=== PATIENT | male | born 1950 | race Two or more races ===

== ENCOUNTER 2016-11-24 11:08 | Inpatient (IN) | payer OTHER, MEDICARE ==
[~2016-11-24] VITALS: Ht 165.1 cm; Wt 99.3 kg
[2016-11-24] VITALS (19 sets, daily range): BP systolic 102–154; BP diastolic 55–93
--- NOTE | 2016-11-24 11:08 | NUR ---
PIDI842 FROM HOME: ALOC, NOT RESPONSIVE TO PAINFUL STIMULI. LAST KNOWB WELL 11/23/16 @ 2200, PER BROTHER. PATIENT CAME IN WITH NR UNRESPONSIVE. SKIN IS WARM AND DRY. IVHL R AND L HAND 18G NOTED LIFE GUARD. DR SORENSEN AT FOR EVAL.
[2016-11-24] MEDS ORDERED: IV NS 0.9% 1,000 ML ONE ×2 (11:15→12:44)
[2016-11-24] MEDS ORDERED: IV SET PRIMARY 1 EA INFUS.SET MC ONE ×2 (11:15→12:44)
--- NOTE | 2016-11-24 11:18 | NUR ---
CALLED CODE STROKE
--- NOTE | 2016-11-24 11:20 | NUR ---
PT TO CT
--- NOTE | 2016-11-24 11:22 | NUR ---
CALLED [facility]'S TELESTROKE HOTLINE, SPOKE WITH DIOMEDES, PRESENTED PT, AWAITING CALL BACK FROM (NEUROLOGIST).
[2016-11-24 11:26] LABS: BASOPHILS % (AUTO) 0.5 % (0.0-2.0); EOSINOPHILS % (AUTO) 0.1 % (0.0-6.0); HEMATOCRIT 44 % (39-51); HEMOGLOBIN 13.5 g/dL (13.5-17.5); LYMPHOCYTES # (AUTO) 1.4 /CMM (0.8-4.8); LYMPHOCYTES % (AUTO) 14.6 % (20.0-44.0); MEAN CORPUSCULAR HEMOGLOBIN 27 PG (26.0-33.0); MEAN CORPUSCULAR HGB CONC 31 g/dl (31.0-36.0); MEAN CORPUSCULAR VOLUME 86 fL (80-96); MONOCYTES # (AUTO) 0.7 /CMM (0.1-1.30); MONOCYTES % (AUTO) 7.7 % (2.0-12.0); NEUTROPHILS # (AUTO) 7.6 /CMM (1.8-8.9); NEUTROPHILS % (AUTO) 77.1 % (43.0-81.0); PLATELET COUNT (AUTO) 160 /CMM (150-450); RDW COEFFICIENT OF VARIATION 14.4 (11.5-15.0); RED BLOOD CELL COUNT(AUTO) 5.05 MIL/uL (4.5-6.0); WHITE BLOOD COUNT (AUTO) 9.7 K/uL (4.3-11.0)
--- NOTE | 2016-11-24 11:26 | NUR ---
PT BACK FROM CT
[2016-11-24] MEDS ORDERED: IV NS 0.9% 1,000 ML BAG IV ONE (11:30)
[2016-11-24] MEDS ORDERED: NALOXONE PREFILLED SYRINGE 2 MG/2 ML SYRINGE ONE (11:32)
--- NOTE | 2016-11-24 11:33 | NUR ---
XRAY AT BS
[2016-11-24 11:36] LABS: CALCIUM, SERUM 8.2 mg/dL (8.5-10.1); CREATININE 2.7 mg/dL (0.6-1.3); POTASSIUM 5.3 mmol/L (3.5-5.1)
[2016-11-24 11:40] LABS: INR 1.01 (0.87-1.13); PROTHROMBIN TIME 10.5 SECS (9.5-12.7)
[2016-11-24 11:47] LABS: TROPONIN I 6.3 ng/mL (0.00-0.056)
[2016-11-24] MEDS ORDERED: HYDR12.55 PO (11:52)
[2016-11-24] MEDS ORDERED: TRAZ-144 PO (11:52)
[2016-11-24] MEDS ORDERED: GABA800T2 PO (11:52)
[2016-11-24] MEDS ORDERED: FLUT16SP16 NS (11:52)
[2016-11-24] MEDS ORDERED: FINA5TAB11 PO (11:52)
[2016-11-24] MEDS ORDERED: LISI-603 PO (11:52)
[2016-11-24] MEDS ORDERED: AMIT25TA9 PO (11:52)
[2016-11-24] MEDS ORDERED: CETI-232 PO (11:52)
[2016-11-24] MEDS ORDERED: ACET-2605 PO (11:52)
[2016-11-24] MEDS ORDERED: METO25TA20 PO (11:52)
[2016-11-24] MEDS ORDERED: TAMS-12 PO (11:52)
[2016-11-24] MEDS ORDERED: OMEP20CA10 PO (11:52)
[2016-11-24] MEDS ORDERED: OMEG1CAP40 PO (11:52)
--- NOTE | 2016-11-24 11:52 | NUR ---
PAGED ROAD INSPECTOR HOME OFFICE CLAIMS EXAMINER, ROAD INSPECTOR
[2016-11-24] MEDS ORDERED: NALOXONE HCL 0.4 MG/ML AMPUL IV ONE (12:00)
[2016-11-24] MEDS ORDERED: ASPIRIN 300 MG/SUPP.RECT RC ONE ×2 (12:25→12:30)
--- NOTE | 2016-11-24 12:40 | NUR ---
REPORT GIVEN TO FRANSISCO ARANGO FOR [facility] ICU 259
[2016-11-24] MEDS ORDERED: IV NS 0.9% 1,000 ML IV ONE (13:00)
--- NOTE | 2016-11-24 13:00 | NUR ---
ICU/RN PT TRANSFER FROM ER.PT IS ALOC,NOT RESPONSIVE ON ANY STIMULATION .ON NON-REBREATHER MASK AT 15L.IV-HL.F/C DRAINING WITH YELLOW URINE.SKIN INTACT.V/S STABLE,AFEBRILE.PUPILS ARE FIXED .,NO REACTION.LABS REVIEW.K-5.3. NOTIFIED.
[2016-11-24 13:26] LABS: BILIRUBIN,DIRECT 0.1 mg/dL (0.0-0.2); BILIRUBIN,TOTAL 0.4 mg/dL (0.2-1.0); TOTAL PROTEIN, SERUM 7.7 g/dL (6.4-8.2)
[2016-11-24 13:36] LABS: ABG BASE EXCESS 1.2 mmol/L; ABG OXYGEN SATURATION 97.2 % (92.0-98.5); ABG PCO2 50.5 mmHg (35.0-45.0); ABG PH 7.354 (7.350-7.450); ABG PO2 103.9 mmHg (75.0-100.0); AaDO2 36.2 mmHg; COHb 1.7 % (0.5-1.5); MetHb 0.5 % (0.0-1.5); O2Hb 95.1 % (94.0-97.0); SITE, ABG Right Radial
[2016-11-24] MEDS: FLUMAZENIL 0.5 MG VIAL IV PRN ×2 (14:08→14:40)
--- NOTE | 2016-11-24 15:00 | NUR ---
ICU/RN ABG DONE ORDERED.DR LOVELACE SEEN THE PT .PT IS INTUBATED FOR AIRWAY PROTECTION.NO SEDATION NEEDED. PT HAS NO GAG AND NO COUGH REFLEX.OG TUBE INSERTED.FAMILY NOTIFIED.CONTINUE MONITORING.
--- NOTE | 2016-11-24 15:01 | NUR ---
PT NOT INTUBATED YET, RN WILL CALL WHEN READY FOR CXR.
[2016-11-24] MEDS: BLOOD SUGAR DIAGNOSTIC 1 EACH STRIP IN SCH ×3 (15:03→22:18)
--- NOTE | 2016-11-24 15:15 | NUR ---
pt intubated by er with 7.5 et-tube secured at 22cm. zero distress noted. b/s equal. positive c02 exchange. pt placed on mech. vent settings as ordered. alarms set and audible ambu-bag at hed of bed.
--- NOTE | 2016-11-24 15:17 | NUR ---
TEXTED FOR MRI APPROVAL.
--- NOTE | 2016-11-24 15:29 | NUR ---
Social service consult received at 2:29PM per Dr Perez for stroke. Per H&P report by Dr. Perez pt. is unable to give history, as per son he has a history of colon carcinoma, BPH, apparently over the last several days has had multiple falls for which he has seen his primary care physician. As of yesterday evening before pt. went to sleep he was awake interactive and appropriate. This morning his sons were not able to wake him up, he was brought to the emergency room where he was found to be obtunded with toxicology screen being positive for benzodiazepines, metabolic workup showing evidence for acute renal failure and elevated troponin with ABG showing compensated hypercarbia. Pt. received a dose of Narcan in the emergency room without improvement, his head CT scan did not show any evidence for an acute event and he was transferred up to the ICU. SW contacted ICU x [phone] to inquire if pt. is A& O and if family members are available. According to HOLLY Alex, pt. is intubated, however family members might be in the waiting room. SW met with pt's son Alec Perez. According to pt's son Alec, pt. has had no prior history of stroke. Pt. has had history of Colon CA 5 years ago and is in remission. Pt. resides with his sons and . Pt. has no DPOA or advance Health care directive at this time. According to pt's son, pt. was ambulatory and independent with his ADL's. According to pt's son, in case of an emergency and a decision would have to be made, pt's would be the decision maker. Pt. receives approximately $650 in social security benefits. No social service needs are required at this time and SW to re-assess if necessary.
[2016-11-24 16:25] LABS: ABG BASE EXCESS 4.6 mmol/L; ABG OXYGEN SATURATION 98.6 % (92.0-98.5); ABG PCO2 53.4 mmHg (35.0-45.0); ABG PH 7.381 (7.350-7.450); ABG PO2 175.9 mmHg (75.0-100.0); AaDO2 120.5 mmHg; COHb 1.3 % (0.5-1.5); MetHb 0.7 % (0.0-1.5); O2Hb 96.6 % (94.0-97.0); PEEP,BG 5 cm H2O; SITE, ABG Right Radial; VT, ABG 550 mL
[2016-11-24] MEDS: IV NS 0.9% 1,000 ML IV PRN ×2 (16:26→17:11)
[2016-11-24] MEDS ORDERED: ETOMIDATE 2 MG/ML VIAL IV ONE (17:00)
[2016-11-24] MEDS ORDERED: ROCURONIUM BROMIDE 50 MG/5 ML IV ONE (17:00)
[2016-11-24] MEDS ORDERED: IV SET PRIMARY PUMP SET 1 EA INFUS.SET MC ONE (17:05)
[2016-11-24] MEDS ORDERED: BLOOD SUGAR DIAGNOSTIC 1 EACH STRIP IN SCH (18:00)
[2016-11-24 18:48] LABS: APPEARANCE,URINE SL CLOUDY (CLEAR); BILIRUBIN,URINE NEGATIVE (NEGATIVE); BLOOD, URINE NEGATIVE Ery/uL (NEGATIVE); COLOR,URINE YELLOW (YELLOW); KETONES,URINE NEGATIVE (NEGATIVE); LEUKOCYTE ESTERASE ,URINE NEGATIVE (NEGATIVE); NITRITE, URINE NEGATIVE (NEGATIVE); PH,URINE 5.5 (5.0-8.0); PROTEIN,URINE NEGATIVE (NEGATIVE); UGLUCOSE NEGATIVE (NEGATIVE); UROBILINOGEN,URINE 0.2 EU/dL (0.2)
[2016-11-24 20:16] LABS: CREATININE 2.2 mg/dL (0.6-1.3); POTASSIUM 4.1 mmol/L (3.5-5.1)
[2016-11-24 20:29] LABS: ALBUMIN 2.4 g/dL (3.4-5.0); BILIRUBIN,TOTAL 0.5 mg/dL (0.2-1.0); TOTAL PROTEIN, SERUM 6.3 g/dL (6.4-8.2)
--- NOTE | 2016-11-24 20:30 | NUR ---
CREDENTIALING SPECIALIST NOTES RECEIVED PT IN BED, MOVES TOES AND HANDS SPONTANEOUSLY. DOES NOT OPEN EYES. WITHDRAWS TO PAIN STIMULI. TELE READS SR IN 70s. ON VENT VIA ETT 7.5 AND 22CM AT LIP, AC 12 TV 550 FIO2 40% PEEP 5, JENNIFER WELL. PARRA CATH IN PLACE WITH YELLOW URINE. MARIANNE MIDLINE 18G AND LEFT HAND 18G, BOTH SALINE LOCKED. OGT IN PLACE AND CLAMPED. TURNED AND REPOSITIONED. NO SIGNS OF PAIN. HOB ELEVATED, SIDE RAILS X3. BILATERAL SOFT WRIST RESTRAINTS IN PLACE FOR PT SAFETY AGAINST EXTUBATION.
[2016-11-24 20:57] LABS: THYROID STIMULATING HORMONE 0.936 uIU/mL (0.358-3.74)
[2016-11-24 20:58] LABS: C-REACTIVE PROTEIN 4.7 mg/dL (0.0-0.9)
[2016-11-24 21:24] LABS: CREATINE KINASE MB 41.1 ng/mL (0-3.6)
[2016-11-25] VITALS (46 sets, daily range): BP systolic 80–167; BP diastolic 28–104
[2016-11-25 05:04] LABS: EOSINOPHILS # (AUTO) 0.1 /CMM (0.0-0.7); EOSINOPHILS % (AUTO) 0.7 % (0.0-6.0); HEMATOCRIT 34 % (39-51); HEMOGLOBIN 11.3 g/dL (13.5-17.5); LYMPHOCYTES % (AUTO) 9.6 % (20.0-44.0); MEAN CORPUSCULAR HEMOGLOBIN 28 PG (26.0-33.0); MEAN CORPUSCULAR HGB CONC 33 g/dl (31.0-36.0); MEAN CORPUSCULAR VOLUME 85 fL (80-96); MONOCYTES # (AUTO) 0.7 /CMM (0.1-1.30); MONOCYTES % (AUTO) 6.4 % (2.0-12.0); NEUTROPHILS # (AUTO) 8.7 /CMM (1.8-8.9); NEUTROPHILS % (AUTO) 83.3 % (43.0-81.0); PLATELET COUNT (AUTO) 117 /CMM (150-450); RDW COEFFICIENT OF VARIATION 15.2 (11.5-15.0); RED BLOOD CELL COUNT(AUTO) 4.04 MIL/uL (4.5-6.0); WHITE BLOOD COUNT (AUTO) 10.5 K/uL (4.3-11.0)
[2016-11-25 05:06] LABS: CALCIUM, SERUM 7.4 mg/dL (8.5-10.1); CREATININE 1.7 mg/dL (0.6-1.3); POTASSIUM 4.1 mmol/L (3.5-5.1)
--- NOTE | 2016-11-25 05:10 | NUR ---
BODY TEAM MEMBER NOTES PATIENT HAD AN EPISODE SINUS PAUSE FOR APPROX 3 SECONDS. PT ASSESSED, NO S/S OF ACUTE DISTRESS. RHYTHM REVERTED BACK TO NORMAL SINUS AT 84 BPM. VSS. EKG PRINTED AND PLACED IN CHART.
[2016-11-25 05:14] LABS: INR 1.04 (0.87-1.13); PROTHROMBIN TIME 11.1 SECS (9.5-12.7)
[2016-11-25] MEDS: BLOOD SUGAR DIAGNOSTIC 1 EACH STRIP IN SCH ×4 (07:14→21:28)
--- NOTE | 2016-11-25 07:56 | NUR ---
MRI APPROVED BY DR. MI. ONLY TO BE DONE WHEN PATIENT IS STABLE.
[2016-11-25] MEDS ORDERED: ATROPINE SULFATE 1 MG/10 ML DISP.SYRIN IV PRN (08:00)
[2016-11-25] MEDS ORDERED: METOPROLOL SUCCINATE 50 MG TAB.SR.24H PO SCH (08:00)
--- NOTE | 2016-11-25 08:03 | NUR ---
CHECKED AM AND SPOKE TO THE NURSE PATIENT IS INTUBATED.
[2016-11-25] MEDS: PANTOPRAZOLE 40 MG TABLET.DR PO SCH (08:28)
[2016-11-25] MEDS: IV NS 0.9% 1,000 ML IV PRN ×3 (08:28→21:28)
[2016-11-25] MEDS: ASPIRIN EC 325 MG TABLET.DR PO SCH (08:28)
[2016-11-25] MEDS: DOCUSATE SODIUM 100 MG CAPSULE PO SCH (08:29)
[2016-11-25] MEDS: ACETAMINOPHEN 650 MG/20.3 ML UDC NG PRN (08:35)
[2016-11-25] MEDS: hydrALAZINE HCL IV 20 MG VIAL IV PRN (08:37)
[2016-11-25] MEDS ORDERED: FEE PK DOSING 1 MIN EA MC ONE (08:55)
[2016-11-25] MEDS ORDERED: METOPROLOL TARTRATE 50 MG TABLET PO SCH (09:00)
[2016-11-25] MEDS: PIPERACILLIN /TAZOBACTAM 2.25 G in IV D5W 50 ML IV SCH ×3 (09:05→17:57)
[2016-11-25] MEDS ORDERED: SECONDARY IV SET 1 EA INFUS.SET MC ONE (09:36)
[2016-11-25] MEDS: VANCOMYCIN 1 GM in IV D5W 250 ML IV SCH (09:52)
[2016-11-25] MEDS ORDERED: IV NS 0.9% 1,000 ML BAG IV ONE (12:30)
[2016-11-25 13:02] LABS: ABG BASE EXCESS 4.7 mmol/L; ABG OXYGEN SATURATION 97.1 % (92.0-98.5); ABG PCO2 46.6 mmHg (35.0-45.0); ABG PH 7.423 (7.350-7.450); ABG PO2 104.1 mmHg (75.0-100.0); AaDO2 127.5 mmHg; COHb 0.7 % (0.5-1.5); MetHb 0.7 % (0.0-1.5); O2Hb 95.7 % (94.0-97.0); PEEP,BG 5 cm H2O; SITE, ABG Right Radial; VT, ABG 550 mL
[2016-11-25] MEDS ORDERED: IV SET PRIMARY PUMP SET 1 EA INFUS.SET MC ONE (13:14)
--- NOTE | 2016-11-25 14:14 | NUR ---
MRI STUDY OF HEAD IS ORDERED BUT UNABLE TO BE DONE AT [facility] PT IS ON VENT. I SPOKE TO ASSOCIATE PRINCIPAL ANASTASIIA, NURSING PUBLIC ADDRESS SYSTEM MECHANIC CHICO AND NILSA THE RADIOLOGY LIAISON FOR MRI'S REGARDING THE NEED FOR IMMEDIATE MRI. THE CNO EMEKA WAS NOTIFIED BY ASSOCIATE PRINCIPAL AND NURSING PUBLIC ADDRESS SYSTEM MECHANIC . I D/W MALLORY VIRGEN, GET AND IDALIA ALL ABOVE. AT THIS TIME THERE IS NO MECHANISM, PROCESS OR SYSTEM IN PLACE TO DO THE MRI
[2016-11-25] MEDS: PROPOFOL 100 ML IV PRN (16:00)
--- NOTE | 2016-11-25 16:00 | NUR ---
ICU/RN PT IS AWAKE FOLLOWS COMMAND ,EYES OPEN ,MOVING UPPER AND LOWER EXTREMITIES.BILATERAL WRIST RESTRAINS ON.HR SWITCH FROM SR TO A-FIB.HR-100-160 BPM.MD NOTIFIED.PROPOFOL STARTED ORDERED.
--- NOTE | 2016-11-25 18:00 | NUR ---
ICU/RN PM CARE PROVIDED.DUE MEDS ARE GIVEN ORDERED.PT IS SEDATED ON PROPOFOL.HR-A-FIB 120-140 BPM.BP STABLE.CONTINUE MONITORING.FAMILY AT BEDSIDE.
--- NOTE | 2016-11-25 20:00 | NUR ---
EX CHEF NOTES RECEIVED PT IN BED, SEDATED ON DIPRIVAN AT 20 MCG/KG/MIN. WITHDRAWS TO PAIN STIMULI. TELE READS SR IN 80s. ON VENT VIA ETT 7.5 AND 22CM AT LIP, AC 12 TV 550 FIO2 40% PEEP 5, JENNIFER WELL. PARRA CATH IN PLACE WITH YELLOW CLOUDY URINE. MARIANNE MIDLINE 18G, RUNNING NS AT 80 ML/HR. OGT IN PLACE AND CLAMPED. TURNED AND REPOSITIONED. NO SIGNS OF PAIN. HOB ELEVATED, SIDE RAILS X3. BILATERAL SOFT WRIST RESTRAINTS IN PLACE FOR PT SAFETY AGAINST EXTUBATION.
[2016-11-26] VITALS (56 sets, daily range): BP systolic 104–158; BP diastolic 57–116
[2016-11-26] MEDS: PIPERACILLIN /TAZOBACTAM 2.25 G in IV D5W 50 ML IV SCH ×5 (00:13→23:30)
[2016-11-26] MEDS ORDERED: IV SET PRIMARY PUMP SET 1 EA INFUS.SET MC ONE ×5 (02:11→19:27)
[2016-11-26] MEDS: PROPOFOL 100 ML IV PRN ×4 (02:19→23:45)
[2016-11-26] MEDS: VANCOMYCIN 1 GM in IV D5W 250 ML IV SCH ×2 (04:47→22:30)
[2016-11-26 05:07] LABS: BASOPHILS % (AUTO) 0.2 % (0.0-2.0); EOSINOPHILS # (AUTO) 0.3 /CMM (0.0-0.7); EOSINOPHILS % (AUTO) 2.9 % (0.0-6.0); HEMATOCRIT 32 % (39-51); HEMOGLOBIN 10.5 g/dL (13.5-17.5); LYMPHOCYTES # (AUTO) 0.9 /CMM (0.8-4.8); LYMPHOCYTES % (AUTO) 8.9 % (20.0-44.0); MEAN CORPUSCULAR HEMOGLOBIN 28 PG (26.0-33.0); MEAN CORPUSCULAR HGB CONC 33 g/dl (31.0-36.0); MEAN CORPUSCULAR VOLUME 85 fL (80-96); MONOCYTES # (AUTO) 0.5 /CMM (0.1-1.30); MONOCYTES % (AUTO) 5.1 % (2.0-12.0); NEUTROPHILS # (AUTO) 7.9 /CMM (1.8-8.9); NEUTROPHILS % (AUTO) 82.9 % (43.0-81.0); PLATELET COUNT (AUTO) 121 /CMM (150-450); RDW COEFFICIENT OF VARIATION 15.2 (11.5-15.0); RED BLOOD CELL COUNT(AUTO) 3.77 MIL/uL (4.5-6.0); WHITE BLOOD COUNT (AUTO) 9.6 K/uL (4.3-11.0)
[2016-11-26 05:16] LABS: CREATININE 1.3 mg/dL (0.6-1.3); PHOSPHORUS 1.8 mg/dL (2.5-4.9); POTASSIUM 3.5 mmol/L (3.5-5.1)
[2016-11-26] MEDS: BLOOD SUGAR DIAGNOSTIC 1 EACH STRIP IN SCH ×4 (06:34→22:30)
[2016-11-26 08:07] LABS: HOMOCYSTEINE, PLASMA 11.3 umol/L (0.0-15.0)
--- NOTE | 2016-11-26 08:21 | NUR ---
HYDROLOGY TECHNICIAN RECEIVED PATIENT FROM THE PREVIOUS SHIFT. PATIENT IS IN BED. RESTING COMFORTABLY. NO ACUTE DISTRESS NOTED. SEDATED ON DIPRIVAN 20 MCG. PER REPORT, PATIENT GETS AGITATED WITHOUT SEDATION. AFEBRILE. SINUS RHYTHM ON MONITOR. TURNED AND REPOSITIONED FOR COMFORT AND WOUND PREVENTION. WILL CONTINUE TO MONITOR AND PROVIDE CARE.
[2016-11-26] MEDS: DOCUSATE SODIUM 100 MG CAPSULE PO SCH (09:05)
[2016-11-26] MEDS: PANTOPRAZOLE 40 MG TABLET.DR PO SCH (09:05)
[2016-11-26] MEDS: ASPIRIN EC 325 MG TABLET.DR PO SCH (09:05)
--- NOTE | 2016-11-26 09:53 | NUR ---
WEB APPLICATION TESTER DURING 7 MINUTE LONG SEDATION VACATION, RN TURNED OFF THE PROPOFOL GTT. PATIENT NOTED TO BE RESTLESS, AGITATED AND TACHYPNEIC. PATIENT WAS BREATHING AGAINST THE VENT. HOWEVER, PATIENT WAS ABLE TO SQUEEZE WITH HANDS UPON COMMAND WITH EQUAL STRENGTH. RN RESTARTED THE PROPOFOL GTT.
[2016-11-26] MEDS: IV NS 0.9% 1,000 ML IV PRN (11:42)
[2016-11-26] MEDS: POTASSIUM PHOSPHATE MM 7.5 MMOL in IV D5W 100 ML IV SCH ×2 (12:17→14:14)
[2016-11-26 16:27] LABS: CSF PROTEIN 44.3 mg/dL (15-45)
[2016-11-26 16:52] LABS: CSF GLUCOSE 63 mg/dL (40-70); CSF PROTEIN 44.3 mg/dL (15-45)
--- NOTE | 2016-11-26 19:30 | NUR ---
MACHINE DEBURRER INITIAL NOTE RCD PT W/DX ALOC, RENAL FAILURE; PT IS SEDATED ON DIPRIVAN AT 35 MCG/KG/MIN WELL BEING ON BL SOFT WRIST RESTRAINTS; PT EASILY WAKES UP DURING ADLs HOWEVER AT THIS TIME CAN NOT INCREASE DIPRIVAN D/T BRADYCARDIA. CURRENTLY NSR ON MONITOR. INTUBATE 7.8 @ 22 W/VENT SETTINGS AC 12 500 40% 5; MIN BLOODY TINGED SECRETIONS NOTED. OG TUBE IN PLACE; CLAMPED AT THIS TIME. PARRA CATHETER DRAINING BLOOD TINGED CLOUDY URINE. SKIN INTACT; MINOR LEAKAGE FROM LUMBAR PUNCTURE SITE. MARIANNE MIDLINE PATENT AND FLUSHING WELL WITH NS @ 80 ML/HR/ NPO AT THIS TIME. PENDING LP RESULTS AT THIS TIME.
[2016-11-27] VITALS (59 sets, daily range): BP systolic 116–171; BP diastolic 56–119
[2016-11-27] MEDS: IV NS 0.9% 1,000 ML IV PRN ×2 (04:30→22:00)
[2016-11-27] MEDS: PROPOFOL 100 ML IV PRN ×4 (04:30→21:00)
[2016-11-27 04:49] LABS: BASOPHILS % (AUTO) 0.2 % (0.0-2.0); EOSINOPHILS # (AUTO) 0.4 /CMM (0.0-0.7); EOSINOPHILS % (AUTO) 5.6 % (0.0-6.0); HEMATOCRIT 37 % (39-51); HEMOGLOBIN 12.1 g/dL (13.5-17.5); LYMPHOCYTES # (AUTO) 1.2 /CMM (0.8-4.8); LYMPHOCYTES % (AUTO) 15.3 % (20.0-44.0); MEAN CORPUSCULAR HEMOGLOBIN 28 PG (26.0-33.0); MEAN CORPUSCULAR HGB CONC 32 g/dl (31.0-36.0); MEAN CORPUSCULAR VOLUME 86 fL (80-96); MONOCYTES # (AUTO) 0.4 /CMM (0.1-1.30); MONOCYTES % (AUTO) 4.7 % (2.0-12.0); NEUTROPHILS # (AUTO) 5.8 /CMM (1.8-8.9); NEUTROPHILS % (AUTO) 74.2 % (43.0-81.0); PLATELET COUNT (AUTO) 131 /CMM (150-450); RDW COEFFICIENT OF VARIATION 15.8 (11.5-15.0); RED BLOOD CELL COUNT(AUTO) 4.36 MIL/uL (4.5-6.0); WHITE BLOOD COUNT (AUTO) 7.8 K/uL (4.3-11.0)
[2016-11-27 05:04] LABS: CALCIUM, SERUM 7.5 mg/dL (8.5-10.1); CREATININE 1.2 mg/dL (0.6-1.3); MAGNESIUM 2.3 mg/dL (1.8-2.4); PHOSPHORUS 2.6 mg/dL (2.5-4.9); POTASSIUM 3.5 mmol/L (3.5-5.1)
[2016-11-27] MEDS: PIPERACILLIN /TAZOBACTAM 2.25 G in IV D5W 50 ML IV SCH ×3 (05:32→17:32)
[2016-11-27] MEDS: BLOOD SUGAR DIAGNOSTIC 1 EACH STRIP IN SCH ×4 (06:34→21:00)
[2016-11-27] MEDS: PANTOPRAZOLE 40 MG TABLET.DR PO SCH (07:30)
[2016-11-27] MEDS ORDERED: IV SET PRIMARY PUMP SET 1 EA INFUS.SET MC ONE ×2 (07:55→20:44)
--- NOTE | 2016-11-27 08:13 | NUR ---
RT PATIENT REC'D ORALLY INTUBATED ON [facility] VENT WITH ORDERS SET PER MD TOLERATED WELL. VENT ALARMS CHECKED + AUDIBLE. VENT PLUGGED INTO RED OUTLET. CUFF PRESSURE CHECKED FORMING MACHINE ADJUSTER. ETT SECURE + IN PROPER POSITION. PATIENT SUCTIONED WITH SMALL AMT PALE SEMI-THICK SECRETIONS. B/S DIM. PATIENT APPEARS COMFORTABLE AND IN NO RESP DISTRESS AT THIS TIME. AMBU BAG AT HOB. CONT CURRENT PLAN OF RESPIRATORY CARE Addendum: 11/27/16 at 0813 by ANNA CHENG RT Amended: Links added.
[2016-11-27] MEDS: ASPIRIN EC 325 MG TABLET.DR PO SCH (08:27)
[2016-11-27] MEDS: DOCUSATE SODIUM 100 MG CAPSULE PO SCH (08:27)
--- NOTE | 2016-11-27 08:29 | NUR ---
HELD AM MEDICATIONS, PT IS ON SCHEDULE FOR PACEMAKER PLACEMENT TODAY AT 11AM. NO ORDERS HAVE BEEN RECIEVED IN THE PAST FOR CONSENT FOR PROCEDURE, AND UNKNOWN IF THE FAMILY IS AWARE OF PROCEDURE PACEMAKER AT THIS TIME. PT DURING THIS ADMISSION HAD RUNS OF AFIB WITH PAUSES; CURRENTLY HE IS SINUS RUI TO SINUS, CONFIRMED WITH SPARE HAND CARDING THAT YESTERDAY HE HAS BEEN CONSISTENTLY SINUS. WILL AWAIT FOR ORDERS IF PACEMAKER PLACEMENT CONSENT WILL BE ORDERED. PT HAS BEEN NPO AFTER MIDNIGHT. WILL WAIT TO WEAN TO CPAP UNTIL PLAN FOR SURGERY IS CONFIRMED OR POSTPONED.
--- NOTE | 2016-11-27 08:58 | NUR ---
CALLED LAB (ON BEHALF OF SURGERY) TO FIND OUT WHEN THE LP RESULTS ARE EXPECTED TO COME BACK. HE IS SCHEDULED FOR SURGERY AND ACCORDING TO NURSING REPORT THE SURGERY IS PENDING THE LP RESULTS. LAB STATES THAT THESE TESTS TAKE A WHILE AND EXPECT BY SUNDAY OR SUNDAY THE RESULT WILL COME BACK. PT IS ON THE SCHEDULE FOR PACEMAKER TODAY. WILL SPEAK WITH SURGERY ABOUT PLAN.
[2016-11-27] MEDS ORDERED: LIDOCAINE HCL/PF 1% 30 ML SDV ONE (10:08)
[2016-11-27] MEDS ORDERED: IOHEXOL 240MG/ML 0 ML IV ONE (10:08)
--- NOTE | 2016-11-27 10:16 | NUR ---
DR. OZUNA CALLS AND GIVES VERBAL ORDERS TO OBTAIN CONSENT FOR PACEMAKER PLACEMENT. I CALLED RITCHIE LEON THE SON AND OBTAINED CONSENT FOR PACEMAKER PLACEMENT, BLOOD TRANSFUSION AND SEDATION. DR. OZUNA STATES HE WILL TALK TO FAMILY WHEN HE COMES IN FOR THE SURGERY AT 11.
[2016-11-27] MEDS ORDERED: SECONDARY IV SET 1 EA INFUS.SET MC ONE (10:18)
[2016-11-27] MEDS ORDERED: ROCURONIUM BROMIDE 50 MG/5 ML ONE ×2 (10:38)
[2016-11-27] MEDS: POTASSIUM CL. PREMIX PERIPHER. 50 ML IV SCH ×2 (10:41→12:58)
[2016-11-27] MEDS ORDERED: FENTANYL PF 100MCG/2ML AMPUL ONE (11:17)
--- NOTE | 2016-11-27 11:31 | NUR ---
PT LEFT WITH SURGICAL TEAM FOR PACEMAKER PLACEMENT.
--- NOTE | 2016-11-27 13:06 | NUR ---
PT BACK FROM SURGERY, STABLE CONDITION SBP IS HYPERTENSIVE IN 140'S. PER SURGICAL TEAM PT RECEIVED GEN ANESTHEIA ROCURONIUM AND LABETELOL FOR HTN.
[2016-11-27] MEDS ORDERED: ANESTHESIA TRAY IN PYXIS 1 EA TRAY MC ONE (14:55)
[2016-11-27] MEDS: VANCOMYCIN 1 GM in IV D5W 250 ML IV SCH (16:30)
--- NOTE | 2016-11-27 16:52 | NUR ---
DISCUSSED CASE WITH DR. LOVELACE ON THE UNIT HE ORDERS FOR WEANING TOMORROW MORNING, PT JUST HAD SURGERY TODAY.
[2016-11-27 18:08] LABS: CALCIUM, IONIZED 4.2 mg/dL (4.5-5.6)
[2016-11-28] VITALS (38 sets, daily range): BP systolic 113–197; BP diastolic 53–97
[2016-11-28] MEDS: ACETAMINOPHEN 650 MG/20.3 ML UDC NG PRN (01:30)
[2016-11-28] MEDS: PROPOFOL 100 ML IV PRN ×6 (02:40→23:05)
[2016-11-28 05:06] LABS: BASOPHILS % (AUTO) 0.3 % (0.0-2.0); EOSINOPHILS # (AUTO) 0.3 /CMM (0.0-0.7); HEMATOCRIT 29 % (39-51); HEMOGLOBIN 9.6 g/dL (13.5-17.5); LYMPHOCYTES # (AUTO) 0.6 /CMM (0.8-4.8); LYMPHOCYTES % (AUTO) 11.3 % (20.0-44.0); MEAN CORPUSCULAR HEMOGLOBIN 28 PG (26.0-33.0); MEAN CORPUSCULAR HGB CONC 33 g/dl (31.0-36.0); MEAN CORPUSCULAR VOLUME 84 fL (80-96); MONOCYTES # (AUTO) 0.4 /CMM (0.1-1.30); MONOCYTES % (AUTO) 6.8 % (2.0-12.0); NEUTROPHILS # (AUTO) 4.3 /CMM (1.8-8.9); NEUTROPHILS % (AUTO) 75.6 % (43.0-81.0); PLATELET COUNT (AUTO) 127 /CMM (150-450); RDW COEFFICIENT OF VARIATION 15.3 (11.5-15.0); RED BLOOD CELL COUNT(AUTO) 3.47 MIL/uL (4.5-6.0); WHITE BLOOD COUNT (AUTO) 5.7 K/uL (4.3-11.0)
[2016-11-28 05:21] LABS: CALCIUM, SERUM 7.3 mg/dL (8.5-10.1); MAGNESIUM 2.1 mg/dL (1.8-2.4); PHOSPHORUS 3.2 mg/dL (2.5-4.9); POTASSIUM 3.3 mmol/L (3.5-5.1)
[2016-11-28] MEDS: PIPERACILLIN /TAZOBACTAM 2.25 G in IV D5W 50 ML IV SCH ×4 (05:30→11:21)
--- NOTE | 2016-11-28 07:00 | NUR ---
WOMEN'S SWIM COACH- INITIAL NOTE RECEIVED PT SEDATED. ON MECHANICAL VENT, ETT 7.5, 22 @ THE LIP, RESPIRATIONS EVEN AND UNLABORED, NO SOB OR DISTRESS PRESENT. BEDSIDE MONITOR REVEALS SINUS RHYTHM. OG TUBE PRESENT AND CLAMPED. PARRA CATHETER DRAINING TO GRAVITY CLEAR, YELLOW URINE. MARIANNE MIDLINE RUNNING NS @ 80 MLS/HR AND DIPRIVAN GTT AT 40 MCG/MIN. SAFETY MEASURES TAKEN: BED LOCKED AND IN LOW POSITION, SIDE RAILS UP X2, BED ALARM ON , WILL CONTINUE TO MONITOR.
[2016-11-28] MEDS: BLOOD SUGAR DIAGNOSTIC 1 EACH STRIP IN SCH ×4 (07:18→21:51)
[2016-11-28] MEDS: ASPIRIN EC 325 MG TABLET.DR PO SCH (08:25)
[2016-11-28] MEDS: PANTOPRAZOLE 40 MG TABLET.DR PO SCH (08:25)
[2016-11-28] MEDS: DOCUSATE SODIUM LIQ 100 MG/10 ML UDC PO SCH (08:25)
--- NOTE | 2016-11-28 09:15 | NUR ---
FASHION STYLING INTERN- SEDATION VACATION/ WEANING ATTEMPT 0830- DIPRIVAN GTT WAS TURNED OFF. DURING 45 MINUTE BEDSIDE SEDATION VACATION/ ATTEMPTS TO WEAN, PT WAS NOT FULLY AWAKE AND DID NOT FOLLOW SIMPLE COMMANDS. HOWEVER, PT WOULD OCCASIONALLY OPEN EYES WHEN INSTRUCTED TO DO SO. TOWARDS THE END OF WEANING ATTEMPT, HE WAS AGITATED, DISPLAYED INCREASED WORK OF BREATHING AND DIPRIVAN WAS RESTARTED AT 40 MCG/MIN AT 0915. WEANING UNSUCCESSFUL. DR. LOVELACE AT BEDSIDE. AWARE OF PT'S STATUS. PER MD, LEAVE PT ON FULL VENTILATOR SUPPORT, WILL ATTEMPT TO WEAN AGAIN TOMORROW. WILL CONTINUE TO MONITOR.
[2016-11-28] MEDS ORDERED: IV SET PRIMARY PUMP SET 1 EA INFUS.SET MC ONE ×4 (09:17→23:44)
[2016-11-28] MEDS: POTASSIUM CL. PREMIX PERIPHER. 50 ML IV SCH ×2 (11:20→12:28)
[2016-11-28] MEDS: IV NS 0.9% 1,000 ML IV PRN (11:31)
[2016-11-28] MEDS: CEFTRIAXONE 1 G in IV D5W 50 ML IV SCH (18:22)
--- NOTE | 2016-11-28 19:23 | NUR ---
CELL MANAGER NOTES RECEIVED PT IN BED, SEDATED ON DIPRIVAN DRIP. WITHDRAWS TO PAIN STIMULI. TELE READS SR IN 60s. S/P LEFT CHEST WALL PACEMAKER, NO SIGNS OF INFECTION AT INCISION SITE. ON VENT VIA ETT 7.5 AND 22CM AT LIP, AC 12 TV 500 FIO2 40% PEEP 5, JENNIFER WELL. PARRA CATH IN PLACE WITH YELLOW CLEAR URINE. MARIANNE MIDLINE 18G, RUNNING NS AT 80 ML/HR. OGT IN PLACE AND CLAMPED. TURNED AND REPOSITIONED. NO SIGNS OF PAIN. HOB ELEVATED, SIDE RAILS X3. BILATERAL SOFT WRIST RESTRAINTS IN PLACE FOR PT SAFETY AGAINST EXTUBATION.
[2016-11-28 22:11] LABS: *ANTITHROMBIN III AG 74 % (72-124); *DILUTE PROTHROMBIN TIME (dPT) 44.7 sec (0.0-55.0); *PTT-LA 44.7 sec (0.0-43.6); *dPT CONFIRM RATIO 1.18 Ratio (0.00-1.40); *dRVVT 41.7 sec (0.0-47.0); FACTOR VIII ACTIVITY 157 % (57-163); PROTEIN C ACTIVITY 89 % (73-180); PROTEIN S ACTIVITY 55 % (63-140)
[2016-11-28] MEDS ORDERED: SECONDARY IV SET 1 EA INFUS.SET MC ONE (22:48)
[2016-11-29] VITALS (58 sets, daily range): BP systolic 126–203; BP diastolic 66–116
[2016-11-29] MEDS: IV NS 0.9% 1,000 ML IV PRN ×2 (00:13→11:21)
[2016-11-29] MEDS: PROPOFOL 100 ML IV PRN ×2 (03:02→08:05)
[2016-11-29 04:08] LABS: *PTT-LA MIX 40.9 sec (0.0-40.6)
[2016-11-29 04:59] LABS: CALCIUM, SERUM 7.6 mg/dL (8.5-10.1); CREATININE 0.9 mg/dL (0.6-1.3); POTASSIUM 3.1 mmol/L (3.5-5.1)
--- NOTE | 2016-11-29 07:15 | NUR ---
RN INITIAL NOTES RECEIVED PT SEDATED. ETT IN PLACE, ON MECH VENT. NO RESPIRATORY DISTRESS NOTED. NO SOB NOTED. NO SIGNS OF PAIN NOTED. OG IN PLACE. MARIANNE MIDLINE INTACT. ON DIPRIVAN, WILL TITRATE ACCORDINGLY. ON NS AT 80ML/HR. FC IN PLACE. BLE ELEVATED. WILL TRY WEANING TODAY. WILL MONITOR.
[2016-11-29] MEDS: BLOOD SUGAR DIAGNOSTIC 1 EACH STRIP IN SCH ×4 (07:39→21:45)
[2016-11-29] MEDS: PANTOPRAZOLE 40 MG TABLET.DR PO SCH (08:05)
[2016-11-29] MEDS: ASPIRIN EC 325 MG TABLET.DR PO SCH (08:05)
[2016-11-29] MEDS: DOCUSATE SODIUM LIQ 100 MG/10 ML UDC PO SCH (08:05)
[2016-11-29 08:09] LABS: *INTERPRETATION Comment: (.)
--- NOTE | 2016-11-29 08:45 | NUR ---
FRANSISCO NOTES PT ON SEDATION VACATION. WILL TRY WEANING TRIALS. WILL CLOSELY MONITOR Addendum: 11/29/16 at [facility][note 3] by JENNIFFER AMAYA RN 0910 DR. LOVELACE IN THE UNIT. AWARE OF THAT IS ON SEDATION VACATION. PT ABLE TO OPEN EYES BUT NOT FOLLOWING SIMPLE COMMANDS. FAMILY AT BEDSIDE. PER MD, WAIT UNTIL PT IS FULLY AWAKE BEFORE WEANING TRIALS. WILL CLOSELY MONITOR.
--- NOTE | 2016-11-29 09:45 | NUR ---
RN NOTES SEEN AND EXAMINED BY DR. CANO. AWARE OF L;AB VALUES: SODIUM 142, POTASSIUM 3.1 AND AWARE OF CXR RESULT. PT ON SEDATION VACATION. WILL TRY WEANING TRIALS WHEN FULLY AWAKE. MD DISCUSSED PLAN OF CARE WITH FAMILY AT BEDSIDE. AWAITING FOR ORDER
[2016-11-29] MEDS: POTASSIUM CHLORIDE 20 MEQ POWDER PACKET NG SCH ×2 (11:30→11:31)
--- NOTE | 2016-11-29 13:00 | NUR ---
RN NOTES DR. LOVELACE IN THE UNIT. NOTIFIED PT OPENS EYES FROM TIME TO TIME. PT TAKES LONG TIME TO SQUEEZE HAND AND MOVE BILATERAL FEET UPON COMMAND BUT NO CONSISTENCY. OFF SEDATION. PER MD, WILL WAIT UNTIL PT IS FULLY AWAKE BEFORE STARTING WEANING TRAILS. SON AT BEDSIDE AWARE. Addendum: 11/29/16 at 1601 by JENNIFFER AMAYA RN 1500 DR. LOVELACE IN THE UNIT. REASSESS PT, OPENS EYES. ABLE TO SQUEEZE HAND AND MOVE BILATERAL FEET UPON COMMAND. OFF SEDATION. PER , WILL HOLD DIPRIVAN OVERNIGHT AND WILL TRY TO WEAN PT IN AM. SON AT BEDSIDE AWARE.
--- NOTE | 2016-11-29 14:07 | NUR ---
WHEN PATIENT OFF VENT THEN MRI BRAIN WILL BE DONE.
[2016-11-29] MEDS: CEFTRIAXONE 1 G in IV D5W 50 ML IV SCH (17:06)
--- NOTE | 2016-11-29 19:00 | NUR ---
RN CLOSING NOTES PT STABLE. REMAINS INTUBATED, ON MECH VENT. NO RESPIRATORY DISTRESS NOTED. NO SIGNS OF PAIN NOTED. ALL DUE MEDS GIVEN. KEPT COMFORTABLE. REPOSITIONED Q2. ALL NEEDS ANTICIPATED AND MET. ENDORSED.
--- NOTE | 2016-11-29 19:40 | NUR ---
CLEARANCE DIVER NOTES RECEIVED PT IN BED. WITHDRAWS TO PAIN STIMULI. TELE READS SR IN 60s. S/P LEFT CHEST WALL PACEMAKER, NO SIGNS OF INFECTION AT INCISION SITE. ON VENT VIA ETT 7.5 AND 22CM AT LIP, AC 12 TV 500 FIO2 40% PEEP 5, JENNIFER WELL. PARRA CATH IN PLACE WITH YELLOW CLEAR URINE. MARIANNE MIDLINE 18G, RUNNING NS AT 80 ML/HR. OGT IN PLACE AND CLAMPED. TURNED AND REPOSITIONED. NO SIGNS OF PAIN. HOB ELEVATED, SIDE RAILS X3. BILATERAL SOFT WRIST RESTRAINTS IN PLACE FOR PT SAFETY AGAINST EXTUBATION.
[2016-11-30] VITALS (46 sets, daily range): BP systolic 134–194; BP diastolic 73–128
[2016-11-30] MEDS: IV NS 0.9% 1,000 ML IV PRN (01:47)
[2016-11-30 04:59] LABS: CALCIUM, SERUM 8.2 mg/dL (8.5-10.1); CREATININE 0.8 mg/dL (0.6-1.3); POTASSIUM 3.6 mmol/L (3.5-5.1)
--- NOTE | 2016-11-30 05:23 | NUR ---
RT END OF THE SHIFT REPORT: PT. 66 Y OLD MALE REMAIN ORALLY INTUBATED ETT # 7.5 @ 22 CM LIP LINE ON [facility] VENT WITH NOTED SETTINGS PER MD TOL. SCHILLING. VENT ALARMS CHECKED + AUDIBLE. VENT PLUGGED INTO RED OUTLET. CUFF PRESSURE CHECKED PLANER MILL GRADER. ETT SECURE + IN PROPER POSITION. PATIENT SUX'D FOR SMALL AMT VO THICK SECRETIONS. B/S CLEAR/DIM. PT. APPEARS COMFORTABLE AND IN NO DISTRESS T/O SHIFT. AMBU BAG AT THE BEDSIDE. CONT CURRENT PLAN OF RESPIRATORY CARE. REPORT WILL PASS TO AM SHIFT. Addendum: 11/30/16 at 0527 by DANYELLE TOVAR RT Amended: Links added.
[2016-11-30] MEDS: BLOOD SUGAR DIAGNOSTIC 1 EACH STRIP IN SCH ×4 (06:31→23:54)
--- NOTE | 2016-11-30 08:00 | NUR ---
SHREDDING FLOOR EQUIPMENT OPERATOR NOTE: RECEIVED PATIENT IN BED INTUBATED OPENS EYES DOES NOT TRACK, RESPONDS TO PAINFUL STIMULI, OFF OF SEDATION SINCE YESTERDAY AM. PATIENT NOTED TO BE SR ON TELE MONITOR S/P LEFT CHEST WALL PACEMAKER, NO SIGNS OF INFECTION AT INCISION SITE, CLEAN AND DRY, OPEN TO AIR. ON VENT VIA ETT 7.5 AND 22CM AT LIP, AC 12 TV 550 FIO2 40% PEEP 5, JENNIFER WELL. PARRA CATH IN PLACE WITH YELLOW CLEAR URINE. MARIANNE MIDLINE 18G, RUNNING NS AT 80 ML/HR. OGT IN PLACE AND CLAMPED. TURNED AND REPOSITIONED. NO SIGNS OF PAIN. HOB ELEVATED, SIDE RAILS X3. BILATERAL SOFT WRIST RESTRAINTS IN PLACE FOR PT SAFETY AGAINST EXTUBATION. SAFETY MAINTAINED. ONGOING MONITORING
[2016-11-30] MEDS: PANTOPRAZOLE 40 MG TABLET.DR PO SCH (08:10)
[2016-11-30] MEDS: DOCUSATE SODIUM LIQ 100 MG/10 ML UDC PO SCH (08:10)
[2016-11-30] MEDS: ASPIRIN EC 325 MG TABLET.DR PO SCH (08:11)
[2016-11-30] MEDS: PANTOPRAZOLE 40 MG/PACK PACK GT SCH (08:21)
[2016-11-30] MEDS: hydrALAZINE HCL IV 20 MG VIAL IV PRN ×3 (08:21→23:42)
[2016-11-30] MEDS: ASPIRIN 325 MG TABLET PO SCH (08:21)
--- NOTE | 2016-11-30 10:00 | NUR ---
HEALTH CARE FACILITY ADMINISTRATOR NOTE: PATIENT RESTING COMFORTABLY IN BED, MORE ALERT AND ORIENTED AT THIS TIME. ETT NOTED WITH SIMV PER SETTING. SAFETY MAINTAINED. FAMILY AT BEDSIDE. ONGOING MONITORING
[2016-11-30 10:11] LABS: ABG BASE EXCESS -3.2 mmol/L; ABG OXYGEN SATURATION 98.2 % (92.0-98.5); ABG PCO2 34.3 mmHg (35.0-45.0); ABG PH 7.404 (7.350-7.450); ABG PO2 155.5 mmHg (75.0-100.0); AaDO2 54.2 mmHg; COHb 0.6 % (0.5-1.5); MetHb 0.9 % (0.0-1.5); O2Hb 96.7 % (94.0-97.0); PEEP,BG 5 cm H2O; VENT MODE, BG SIMV 4 PSV 12; VT, ABG 550 mL
--- NOTE | 2016-11-30 12:00 | NUR ---
CAD CAM PROGRAMMER NOTE: PATIENT IN BED TOLERATING SIMV SETTINGS WELL, OGTUBE FEEDING STARTED PER ORDER. ONGOING MONITORING
[2016-11-30] MEDS: FIBERSOURCE HN 1,000 ML BOTTLE GT PRN (12:38)
[2016-11-30 13:15] LABS: *CARD ANTI-CARDIOLIPIN AB IgG <9 GPL U/mL (0-14); *CARD ANTI-CARDIOLIPIN AB IgM <9 MPL U/mL (0-12)
[2016-11-30 14:19] LABS: *FACTOR II, DNA ANALYSIS Negative (.)
--- NOTE | 2016-11-30 16:00 | NUR ---
SENIOR BENEFITS MANAGER NOTE: BED BATH GIVEN, PATIENT CLEANED AND NOTED WITH BM. ALL BEDDING CHANGED, TURNED AND REPOSITIONED AND EXTREMITIES OFFLOADED. PATIENT MADE COMFORTABLE. ONGOING MONITORING.
--- NOTE | 2016-11-30 17:00 | NUR ---
CARDROOM ATTENDANT NOTE: PATIENT ON COOL AEROSOL AT 5L 02 28%, PATIENT TOLERATING WELL. RECEIVED ORDER TO PLACE PATIENT ON SIMV MODE IF PATIENT GOES INTO DISTRESS OVERNIGHT. PLAN FOR EXTUBATION TOMORROW.
[2016-11-30] MEDS: CEFTRIAXONE 1 G in IV D5W 50 ML IV SCH (18:18)
--- NOTE | 2016-11-30 21:30 | NUR ---
MEDICAL PHOTOGRAPHER: FAMILY AT BEDSIDE. PT EYES TRACKING, ABLE TO FOLLOW SIMPLE COMMANDS.
[2016-12-01] VITALS (36 sets, daily range): BP systolic 135–196; BP diastolic 71–112
--- NOTE | 2016-12-01 02:25 | NUR ---
PRODUCE BUYER: PT NOTED WT A. FIB WT RVR, HR WENT IN THE 200s. CALLED AND NOTIFIED DR. GILLESPIE AND WT ORDER FOR AMIO. IP PER PROTOCOL.
[2016-12-01] MEDS ORDERED: AMIODARONE 150 MG/3 ML VIAL IV ONE ×2 (02:27)
[2016-12-01] MEDS ORDERED: IV D5W 500 ML IV ONE (02:28)
[2016-12-01] MEDS ORDERED: IV D5W 100 ML IV ONE (02:28)
[2016-12-01] MEDS ORDERED: IV SET PRIMARY PUMP SET 1 EA INFUS.SET MC ONE (02:29)
[2016-12-01] MEDS ORDERED: AMIODARONE 150 MG in IV D5W 100 ML IV ONE (02:30)
[2016-12-01] MEDS: AMIODARONE 900 MG in IV D5W 482 ML IV PRN ×2 (02:52→16:20)
--- NOTE | 2016-12-01 03:14 | NUR ---
STAT ABG DONE. RN NOTIFIED WITH THE RESULT.
[2016-12-01] MEDS ORDERED: IV NS 0.9% 250 ML IV ONE (03:52)
[2016-12-01] MEDS: IV NS 0.9% 250 ML IV PRN (03:57)
[2016-12-01 04:43] LABS: BASOPHILS % (AUTO) 0.1 % (0.0-2.0); EOSINOPHILS # (AUTO) 0.2 /CMM (0.0-0.7); HEMATOCRIT 35 % (39-51); HEMOGLOBIN 11.7 g/dL (13.5-17.5); LYMPHOCYTES # (AUTO) 0.8 /CMM (0.8-4.8); LYMPHOCYTES % (AUTO) 7.6 % (20.0-44.0); MEAN CORPUSCULAR HEMOGLOBIN 28 PG (26.0-33.0); MEAN CORPUSCULAR HGB CONC 33 g/dl (31.0-36.0); MEAN CORPUSCULAR VOLUME 83 fL (80-96); MONOCYTES # (AUTO) 0.6 /CMM (0.1-1.30); MONOCYTES % (AUTO) 6.3 % (2.0-12.0); NEUTROPHILS # (AUTO) 8.5 /CMM (1.8-8.9); PLATELET COUNT (AUTO) 208 /CMM (150-450); RDW COEFFICIENT OF VARIATION 14.7 (11.5-15.0); RED BLOOD CELL COUNT(AUTO) 4.23 MIL/uL (4.5-6.0); WHITE BLOOD COUNT (AUTO) 10.1 K/uL (4.3-11.0)
--- NOTE | 2016-12-01 04:45 | NUR ---
AVIATION SURVIVAL TECHNICIAN: NOTED WT 94% 02 SAT WT SOB, FIO2 INCREASED TO 40% AT 10LPM 02. STILL A. FIB WT RVR AND CONTINUE AMIO. AT 1MG/MIN.
[2016-12-01 05:04] LABS: CALCIUM, SERUM 8.3 mg/dL (8.5-10.1); CREATININE 0.8 mg/dL (0.6-1.3); PHOSPHORUS 2.1 mg/dL (2.5-4.9); POTASSIUM 3.1 mmol/L (3.5-5.1)
--- NOTE | 2016-12-01 05:27 | NUR ---
ICE HOUSE SUPERVISOR: PT NOW CONVERTED TO SR. ABLE TO OPEN EYES WT TACTILE STIMULI AND FOLLOW SIMPLE COMMANDS.
[2016-12-01] MEDS: BLOOD SUGAR DIAGNOSTIC 1 EACH STRIP IN SCH ×3 (05:34→17:08)
[2016-12-01] MEDS ORDERED: FUROSEMIDE 40 MG/4 ML VIAL IV ONE (08:00)
--- NOTE | 2016-12-01 08:00 | NUR ---
PORTER BAGGAGE NOTE: RECEIVED PATIENT IN BED INTUBATED OPENS EYES RESPONDS TO PAINFUL STIMULI, PATIENT NOTED TO BE SR ON TELE MONITOR S/P LEFT CHEST WALL PACEMAKER, NO SIGNS OF INFECTION AT INCISION SITE, CLEAN AND DRY, OPEN TO AIR. ON VENT VIA ETT 7.5 AND 24CM AT LIP, ON COOL AEROSOL 40% JENNIFER WELL. PARRA CATH IN PLACE WITH YELLOW CLEAR URINE. MARIANNE MIDLINE 18G, RUNNING AMIODARONE AT 1MG/MIN STARTED AT 0300 TO BE PLACED ON 0.5MG/MIN AT 0900 [address]OCOL. OGT IN PLACE, PLACEMENT VERIFIED RUNNING FIBERSOURCE AT 65ML/HR NO RESIDUAL NOTED. PATIENT TOLERATING WELL. TURNED AND REPOSITIONED. NO SIGNS OF PAIN. HOB ELEVATED, SIDE RAILS X3. BILATERAL SOFT WRIST RESTRAINTS IN PLACE FOR PT SAFETY AGAINST EXTUBATION. SAFETY MAINTAINED. ONGOING MONITORING
[2016-12-01] MEDS: DOCUSATE SODIUM LIQ 100 MG/10 ML UDC PO SCH (09:00)
--- NOTE | 2016-12-01 09:00 | NUR ---
STRETCHER HELPER NOTE: AMIODARONE DRIP CHANGED TO 0.5MG/MIN PER PROTOCOL. PATIENT NOTED TO BE SR ON TELE MONITOR. ONGOING MONITORING
[2016-12-01] MEDS: CARVEDILOL 6.25 MG TABLET PO SCH ×2 (09:05→20:12)
[2016-12-01] MEDS: PANTOPRAZOLE 40 MG/PACK PACK GT SCH (09:05)
[2016-12-01] MEDS: ASPIRIN 325 MG TABLET PO SCH (09:05)
[2016-12-01 09:10] LABS: ABG BASE EXCESS 5.2 mmol/L; ABG OXYGEN SATURATION 96.1 % (92.0-98.5); ABG PCO2 47.9 mmHg (35.0-45.0); ABG PH 7.421 (7.350-7.450); ABG PO2 90.8 mmHg (75.0-100.0); AaDO2 139.3 mmHg; MetHb 0.8 % (0.0-1.5); O2Hb 94.4 % (94.0-97.0); SITE, ABG Right Radial; VENT MODE, BG cool aerosol @ 40%
--- NOTE | 2016-12-01 10:00 | NUR ---
GOLD LEAF ROLLER NOTE: PATIENT RESTING COMFORTABLY ALERT AND ORIENTED, PATIENT NOTED TO WITH BM, LOOSE. PATIENT CHANGED, BED BATH GIVEN, PATIENT TURNED AND REPOSITIONED AND EXTREMITIES OFFLOADED. KCI MATTRESS PLACED. SKIN CARE RENDERED. TOLERATING COOL AEROSOL WELL NO DISTRESS NOTED SR ON MONITOR. ONGOING MONITORING
[2016-12-01 11:13] LABS: *CRYPTOCOCCUS AG, CSF Negative (Negative); VDRL, CSF Non Reactive (Non Rea:<1:1)
[2016-12-01] MEDS: POTASSIUM CHLORIDE 20 MEQ POWDER PACKET GT SCH ×2 (11:37→11:38)
--- NOTE | 2016-12-01 12:05 | NUR ---
Patient was on continue cool aerosol @40% Spo2 97%. Hr-63 , RR-28 ,transfer Patient to MRI for Brain. continue o2 @40% fio2. awake,eyes open,moving and breathing 30Bpm. procedure was 20mins. tolerated fairly well. w/o complications.transport Patient back to ICU,place back on monitor Hr-66 Spo2 100% on cool aerosol T/piece.continue O2 as ordered. KEEGAN Solis Addendum: 12/01/16 at 1316 by DANIEL LEMA RT Amended: Links added.
--- NOTE | 2016-12-01 13:00 | NUR ---
CLINICAL PROGRAMMER NOTE: AMIODARONE HELD FOR 1 HOUR FROM [id number] DURING TRANSPORT FOR MRI, CHARGE NURSE NBA AWARE, DR. LOVELACE AWARE. PATIENT NOTED TO BE SR. ONGOING MONITORING.
[2016-12-01] MEDS ORDERED: NEUTRA PHOS 1 POWD.PACKET GT ONE (14:00)
[2016-12-01] MEDS ORDERED: K PHOS NEUTRAL 250 MG TABLET PO ONE (14:00)
--- NOTE | 2016-12-01 14:00 | NUR ---
TOOLING SPECIALIST NOTE: PER ORDER FROM DR. LOVELACE AT 1200 PATIENT WAS TRANSPORTED TO MRI OF BRAIN WITH ETT ON COOL AEROSOL WITH RT AT BEDSIDE, TRANSPORTER, RN NILTON RONQUILLO(RADIOLOGY DEPT). ACLS OBSERVED DURING TRANSPORT HOWEVER NO MONITORING ABLE DURING 20 MIN PROCEDURE. PATIENT DID NOT DISPLAY SYMPTOMS OF DISTRESS. MRI DONE AND PATIENT TRANSPORTED BACK TO ROOM AT 1300. PATIENT AWAKE DURING TRANSPORT AND PROCEDURE ABLE TO FOLLOW COMMANDS. MRI RESULTS OBTAINED AND INFORMED DR. LOVELACE, CALL MADE TO DR. VIRGEN AND MESSAGE LEFT REGARDING MRI RESULTS. ONGOING MONITORING.
[2016-12-01] MEDS: FIBERSOURCE HN 1,000 ML BOTTLE GT PRN (15:47)
[2016-12-01] MEDS: CEFTRIAXONE 1 G in IV D5W 50 ML IV SCH (17:09)
--- NOTE | 2016-12-01 17:36 | NUR ---
VETERINARY VIRUS SERUM INSPECTOR NOTE: PATIENT ON COOL AEROSOL AT 40%, PATIENT TOLERATING WELL. SR ON TELE MONITOR, ON AMIODARONE AT 0.5MCG/MIN, SR ON TELE MONITOR, FIBERSOURCE RUNNING VIA OGTUBE AT 65ML/HR NO RESIDUALS NOTED. UOP WNL. PATIENT REMAINS ALERT ABLE TO FOLLOW SIMPLE COMMANDS. KEPT CLEAN AND DRY, TURNED AND REPOSITIONED AND EXTREMITIES OFFLOADED. SKIN CARE RENDERED. ORAL CARE PROVIDED. ONGOING MONITORING
[2016-12-01] MEDS: hydrALAZINE HCL IV 20 MG VIAL IV PRN ×2 (19:05→23:42)
--- NOTE | 2016-12-01 19:07 | NUR ---
CLAIMS ADMINISTRATOR NOTE: PATIENT NOTED WITH SBP IN 180'S, HYDRALAZINE IVP ADMINISTERED ORDER.
--- NOTE | 2016-12-01 20:00 | NUR ---
SLOT EDITOR: ALERT & AWAKE, ABLE TO FOLLOW SIMPLE COMMANDS. REMAINED ORALLY INTUBATED AND STILL ON C/A AT 10LPM 02 WT 40% FIO2. NO ACUTE DISTRESS. SR ON RECREATIONAL LEADER WT OCCASIONAL PACs & A-PACING. NO ADVERSE CHANGES NOTED ON LEFT CW INCISION SITE FROM S/P PM PLACEMENT. TOLERATING OGT FEEDING WT 10CC RESIDUAL. F/C PATENT AND INTACT DRAINING CLEAR MISSY URINE TO GRAVITY. BILAT. SOFT WRIST RESTRAINTS IN PLACE FOR EPISODES OF TRYING TO REACH TUBINGS. NOTED WT GOOD CIRCULATION AND NO SKIN BREAKDOWN WHEN RESTRAINTS WERE RELEASED AND CHECKED. STILL NOTED WT ELEVATED BP. WILL ADMINISTER COREG ORDERED. WILL CONTINUE TO MONITOR.
--- NOTE | 2016-12-01 21:00 | NUR ---
DELIVERY AND INSTALLATION SUBCONTRACTOR: BP IMPROVED AT 166/81, HR= 76 AFTER GIVEN HYDRALAZINE AND COREG. WILL CONTINUE TO MONITOR.
--- NOTE | 2016-12-01 23:45 | NUR ---
FAMILY SERVICES MANAGER: PT REMAINED ALERT AND AWAKE. NOTED WT PERSISTENT SBP ABOVE 160. HYDRALAZINE GIVEN ORDERED. WILL MONITOR EFFECTIVITY.
[2016-12-02] VITALS (39 sets, daily range): BP systolic 159–192; BP diastolic 70–92
--- NOTE | 2016-12-02 00:30 | NUR ---
CIVIL MANAGER: CALLED AND NOTIFIED DR. GILLESPIE THAT PT BP REMAINED ELEVATED SINCE START OF SHIFT WT ORDER TO GIVE LOPRESSOR 5MG IVP Q4H PRN FOR SBP ABOVE 160 UNRESOLVED BY HYDRALAZINE. NOTED AND CARRIED OUT.
[2016-12-02] MEDS ORDERED: METOPROLOL TARTRATE INJ 5 MG/5 ML AMPUL ONE ×2 (00:31→06:20)
[2016-12-02] MEDS: METOPROLOL TARTRATE INJ 5 MG/5 ML AMPUL IVP PRN ×4 (00:44→22:54)
--- NOTE | 2016-12-02 01:10 | NUR ---
BARBER: NOTIFIED DR. GILLESPIE OF RIGHT ARM MORE SWOLLEN AND WARMER TO TOUCH WITHOUT REDNESS COMPARED TO LEFT ARM. MARIANNE MIDLINE INTACT WT AMIODARONE DRIP INFUSING AT 0.5MG/MIN. WT STAT ORDER FOR VENOUS DOPPLER US. NOTED AND CARRIED OUT. RADIOLOGY MADE AWARE.
--- NOTE | 2016-12-02 03:00 | NUR ---
MAID HOUSEKEEPER: AMIODARONE STOPPED AT THIS TIME ORDERED. REMAINED SR AT THIS TIME. WILL CONTINUE TO MONITOR.
[2016-12-02] MEDS: hydrALAZINE HCL IV 20 MG VIAL IV PRN ×5 (03:47→22:10)
[2016-12-02] MEDS: IV NS 0.9% 250 ML IV PRN (04:03)
[2016-12-02 05:00] LABS: CALCIUM, SERUM 8.2 mg/dL (8.5-10.1); CREATININE 0.8 mg/dL (0.6-1.3); PHOSPHORUS 2.1 mg/dL (2.5-4.9); POTASSIUM 3.3 mmol/L (3.5-5.1)
[2016-12-02] MEDS ORDERED: CLONIDINE HCL 0.3 MG/24H PTWK 1 EA PATCH TD SCH (07:30)
[2016-12-02] MEDS ORDERED: POTASSIUM CHLORIDE 20 MEQ POWDER PACKET NG SCH (07:30)
[2016-12-02] MEDS: PANTOPRAZOLE 40 MG/PACK PACK GT SCH (08:24)
[2016-12-02] MEDS: DOCUSATE SODIUM LIQ 100 MG/10 ML UDC PO SCH (08:24)
[2016-12-02] MEDS: ASPIRIN 325 MG TABLET PO SCH (08:24)
[2016-12-02] MEDS: CARVEDILOL 6.25 MG TABLET PO SCH ×2 (08:25→20:13)
[2016-12-02] MEDS ORDERED: POTASSIUM CHLORIDE 20 MEQ POWDER PACKET GT SCH (09:30)
[2016-12-02] MEDS ORDERED: POTASSIUM CHLORIDE 20 MEQ POWDER PACKET GT ONE (09:30)
[2016-12-02] MEDS ORDERED: NEUTRA PHOS 1 POWD.PACKET NG ONE ×2 (14:00→18:00)
[2016-12-02] MEDS: FIBERSOURCE HN 1,000 ML BOTTLE GT PRN (18:00)
--- NOTE | 2016-12-02 20:00 | NUR ---
CHIEF TRANSFER AND PUMPHOUSE OPERATOR : WOUND NOTED ON POSTERIOR MARIANNE UPON INITAL ASSESSMENT UNDER THE BP CUFF. PICTURE TAKEN AND WOUND CARE CONSULTED .
--- NOTE | 2016-12-02 22:10 | NUR ---
FIREARMS INSPECTOR : SBP ELEVATED ABOVE 160, PRN HYDRALAZINE GIVEN . FAMILY AT BEDSIDE , UPDATES GIVEN
--- NOTE | 2016-12-02 23:53 | NUR ---
NET C DEVELOPER PTS BP 182/[address] GILLESPIE . DR GILLESPIE AWARE OF PTS ELEVATED BP THROUGHOUT THE SHIFT (SBP ABOVE 160) DESPITE PRN MEDS THAT WERE GIVEN. GAVE ORDER FOR PRN LABETALOL.
[2016-12-02] MEDS ORDERED: LABETALOL HCL IV 100MG VIAL ONE (23:58)
[2016-12-03] VITALS (47 sets, daily range): BP systolic 108–181; BP diastolic 51–94
[2016-12-03] MEDS ORDERED: LABETALOL 20 MG/4 ML VIAL IV PRN
[2016-12-03] MEDS: FIBERSOURCE HN 1,000 ML BOTTLE GT PRN ×2 (01:22→15:51)
[2016-12-03] MEDS: hydrALAZINE HCL IV 20 MG VIAL IV PRN (01:24)
[2016-12-03] MEDS: METOPROLOL TARTRATE INJ 5 MG/5 ML AMPUL IVP PRN (02:46)
[2016-12-03] MEDS ORDERED: NTG 50 MG/D5W250 ML BOTTL 250 ML IV ONE (03:53)
[2016-12-03] MEDS ORDERED: IV SET PRIMARY PUMP SET 1 EA INFUS.SET MC ONE (03:53)
--- NOTE | 2016-12-03 03:59 | NUR ---
MEAT HANGER : PTS BP PERSISTENTLY ELEVATED THROUGHOUT NIGHT DESPITE USE OF LABETALOL AND PRN MEDS . DR GILLESPIE AWARE . CURRENT BP 170/73 DR GILLESPIE GAVE ORDER FOR NITRO DRIP TO KEEP SBP BELOW 160 .
[2016-12-03] MEDS ORDERED: NTG 50 MG/D5W250 ML BOTTL 250 ML IV PRN (04:00)
[2016-12-03 05:07] LABS: CALCIUM, SERUM 8.7 mg/dL (8.5-10.1); CREATININE 0.8 mg/dL (0.6-1.3); PHOSPHORUS 2.3 mg/dL (2.5-4.9); POTASSIUM 3.8 mmol/L (3.5-5.1)
[2016-12-03 05:25] LABS: EOSINOPHILS # (AUTO) 0.2 /CMM (0.0-0.7); EOSINOPHILS % (AUTO) 1.5 % (0.0-6.0); HEMATOCRIT 39 % (39-51); HEMOGLOBIN 12.4 g/dL (13.5-17.5); LYMPHOCYTES # (AUTO) 0.8 /CMM (0.8-4.8); LYMPHOCYTES % (AUTO) 5.3 % (20.0-44.0); MEAN CORPUSCULAR HEMOGLOBIN 27 PG (26.0-33.0); MEAN CORPUSCULAR HGB CONC 32 g/dl (31.0-36.0); MEAN CORPUSCULAR VOLUME 85 fL (80-96); MONOCYTES # (AUTO) 0.7 /CMM (0.1-1.30); MONOCYTES % (AUTO) 5.1 % (2.0-12.0); NEUTROPHILS # (AUTO) 12.6 /CMM (1.8-8.9); NEUTROPHILS % (AUTO) 88.1 % (43.0-81.0); PLATELET COUNT (AUTO) 158 /CMM (150-450); RED BLOOD CELL COUNT(AUTO) 4.57 MIL/uL (4.5-6.0); WHITE BLOOD COUNT (AUTO) 14.3 K/uL (4.3-11.0)
[2016-12-03] MEDS: DOCUSATE SODIUM LIQ 100 MG/10 ML UDC PO SCH (08:01)
[2016-12-03] MEDS: CARVEDILOL 6.25 MG TABLET PO SCH ×2 (08:02→20:10)
[2016-12-03] MEDS: hydrALAZINE HCL 50 MG TABLET PO SCH ×3 (08:02→16:00)
[2016-12-03] MEDS: ASPIRIN 325 MG TABLET PO SCH (08:02)
[2016-12-03] MEDS: PANTOPRAZOLE 40 MG/PACK PACK GT SCH (08:02)
[2016-12-03] MEDS: NITROGLYCERIN 30 GM TUBE TP SCH ×2 (09:03→20:09)
[2016-12-03] MEDS: IV NS 0.9% 250 ML IV PRN (09:25)
[2016-12-03 09:49] LABS: ABG BASE EXCESS 7.8 mmol/L; ABG OXYGEN SATURATION 96.4 % (92.0-98.5); ABG PH 7.408 (7.350-7.450); ABG PO2 98.5 mmHg (75.0-100.0); AaDO2 36.2 mmHg; COHb 0.3 % (0.5-1.5); MetHb 0.7 % (0.0-1.5); O2Hb 95.4 % (94.0-97.0); SITE, ABG Right Radial; VENT MODE, BG T-PIECE 28%
--- NOTE | 2016-12-03 10:00 | NUR ---
CONTRACT FORESTER- NITROGLYCERIN GTT WAS STOPPED. PT'S SBP HAS DECREASED SINCE AM MEDS WERE GIVEN. WILL CONTINUE TO MONITOR.
[2016-12-03] MEDS ORDERED: PIPERACILLIN /TAZOBACTAM 4.5 G in IV D5W 50 ML IV SCH (11:00)
--- NOTE | 2016-12-03 11:00 | NUR ---
FIRE LIEUTENANT MARINE- DR. GARCIA AT BEDSIDE. MD UPDATED ON PT'S STATUS: 1) ABG RESULTS THIS AM, 2) PT TACHYPNEIC, RESPIRATIONS= 30-35. PER MD, PT TO BE PLACED BACK ON VENTILATOR. RT AWARE. WILL CONTINUE TO MONITOR.
[2016-12-03] MEDS ORDERED: FEE PK DOSING 1 MIN EA MC ONE (11:10)
--- NOTE | 2016-12-03 11:26 | NUR ---
RT PER DR GARCIA PATIENT PLACED BACK ON [facility] VENT WITH PREVIOUS ORDERED SETTINGS. VENT ALARMS CHECKED + AUDIBLE. JOE JACKSON AT HOB. CONT CURRENT PLAN OF RESP CARE. Addendum: 12/03/16 at 1127 by ANNA CHENG RT Amended: Links added.
[2016-12-03] MEDS ORDERED: SECONDARY IV SET 1 EA INFUS.SET MC ONE (11:43)
[2016-12-03] MEDS: PIPERACILLIN /TAZOBACTAM 3.375 G in IV D5W 50 ML IV SCH ×3 (11:50→23:02)
[2016-12-03] MEDS: FUROSEMIDE 20 MG/2 ML VIAL IV SCH (11:51)
[2016-12-03] MEDS: VANCOMYCIN 1 GM in IV D5W 250 ML IV SCH ×2 (12:33→23:39)
[2016-12-03] MEDS ORDERED: NEUTRA PHOS 1 POWD.PACKET NG ONE (15:30)
--- NOTE | 2016-12-03 19:45 | NUR ---
RN INITIAL NOTES RECEIVED PT ASLEEP ON BED, AROUSABLE TO NAME AND TOUCH, ABLE TO FOLLOW SOME SIMPLE COMMANDS SUCH HAND DIRECTOR OF ONCOLOGY. ON VENT, AC 12, TV 550, 40% FIO2, PEEP 5, ETT 7.5/24@ LIP, SATURATING WELL, NO S/S OF RESP DISTRESS. NO SEDATION, BILATERAL SOFT WRIST RESTRAINTS IN PLACE FOR SAFETY. CURRENTLY SR WITH SOME PVC'S AND OCCASIONAL PACING ON THE MONITOR. OGT IN PLACE WITH FIBERSOURCE @ 65MLS/HR, NO RESIDUALS, TOLERATING WELL. PARRA INTACT. RIGHT EJ 20G AND LEFT UPPER ARM MIDLINE BOTH FLUSHED AND PATENT, NO S/S OF INFILTRATION/INFECTION, DRESSINGS CDI. BED LOW AND LOCKED, SIDERAILS UP. WILL MONITOR
[2016-12-04] VITALS (45 sets, daily range): BP systolic 94–143; BP diastolic 44–74
[2016-12-04 04:42] LABS: BASOPHILS % (AUTO) 0.4 % (0.0-2.0); EOSINOPHILS # (AUTO) 0.4 /CMM (0.0-0.7); EOSINOPHILS % (AUTO) 3.7 % (0.0-6.0); HEMATOCRIT 29 % (39-51); HEMOGLOBIN 9.5 g/dL (13.5-17.5); LYMPHOCYTES # (AUTO) 0.7 /CMM (0.8-4.8); LYMPHOCYTES % (AUTO) 7.1 % (20.0-44.0); MEAN CORPUSCULAR HEMOGLOBIN 28 PG (26.0-33.0); MEAN CORPUSCULAR HGB CONC 33 g/dl (31.0-36.0); MEAN CORPUSCULAR VOLUME 85 fL (80-96); MONOCYTES # (AUTO) 0.5 /CMM (0.1-1.30); MONOCYTES % (AUTO) 4.9 % (2.0-12.0); NEUTROPHILS # (AUTO) 8.5 /CMM (1.8-8.9); NEUTROPHILS % (AUTO) 83.9 % (43.0-81.0); PLATELET COUNT (AUTO) 211 /CMM (150-450); RDW COEFFICIENT OF VARIATION 14.8 (11.5-15.0); RED BLOOD CELL COUNT(AUTO) 3.41 MIL/uL (4.5-6.0); WHITE BLOOD COUNT (AUTO) 10.1 K/uL (4.3-11.0)
[2016-12-04 05:00] LABS: CALCIUM, SERUM 7.9 mg/dL (8.5-10.1); CREATININE 0.9 mg/dL (0.6-1.3); MAGNESIUM 2.1 mg/dL (1.8-2.4); PHOSPHORUS 2.5 mg/dL (2.5-4.9); POTASSIUM 3.5 mmol/L (3.5-5.1)
[2016-12-04] MEDS: PIPERACILLIN /TAZOBACTAM 3.375 G in IV D5W 50 ML IV SCH ×4 (05:04→23:50)
--- NOTE | 2016-12-04 07:32 | NUR ---
RN INITIAL NOTE PT AROUSABLE TO VERBAL/PHYSICAL STIMULI, FOLLOWS COMMANDS TO SQUEEZE HANDS, AND NODS HEAD. INTERMITTENTLY SLEEPY. BACK ON FULL AC MODE SINCE YESTERDAY DUE TO EPISODE OF TACHYPNEA AND HIGH CO2 LEVELS WHILE ON TPEICE. HE HAS NOT RECEIVED ANY SEDATING MEDICATIONS. BP MEDS OPTIMIZED BY DR. HARVEY YESTERDAY, SBP NOW CONTROLLED 120-140'S. NSR A PACING ON DEMAND. FBS RUNNING AT 65ML/H. HE IS BACK ON VANCO AND ZOSYN FOR WORSENING PNEUMONIA, ELEVATION IN WHITE COUNT. TODAY WHITE COUNT IS BACK DOWN. AFEBRILE THIS AM. ANTICIPATING FOR PULMONARY TO ORDER TO [facility] TODAY. RENDERED ORAL CARE.
--- NOTE | 2016-12-04 08:04 | NUR ---
WOUND CARE CONSULT: PT PRESENTS WITH CLOSED INCISION TO LEFT CHEST AND RT ARM SKIN TEAR. PT ON FIRST STEP MATTRESS. ALL SKIN PROTECTION MEASURES IN PLACE AND DISCUSSED WITH NURSING STAFF. OLIVIER SCORE CURRENTLY 14. WILL SEE PRN. GARNICA IN AGREEMENT WITH PLAN OF CARE. Addendum: 12/04/16 at 0805 by IAIN JASSO WNDNU Amended: Links added.
[2016-12-04] MEDS: DOCUSATE SODIUM LIQ 100 MG/10 ML UDC PO SCH (08:23)
[2016-12-04] MEDS: ASPIRIN 325 MG TABLET PO SCH (08:23)
[2016-12-04] MEDS: PANTOPRAZOLE 40 MG/PACK PACK GT SCH (08:23)
[2016-12-04] MEDS: FUROSEMIDE 20 MG/2 ML VIAL IV SCH (08:24)
[2016-12-04] MEDS: hydrALAZINE HCL 50 MG TABLET PO SCH ×3 (08:38→16:46)
[2016-12-04] MEDS: CARVEDILOL 6.25 MG TABLET PO SCH ×2 (08:38→21:04)
[2016-12-04] MEDS: NITROGLYCERIN 30 GM TUBE TP SCH ×2 (09:00→21:04)
--- NOTE | 2016-12-04 09:38 | NUR ---
AFTER AM BP MEDICATION ADMINISTRATION GIVEN THROUGH OGT, SBP IS CONSISTENTLY IN THE 90'S. WILL HOLD NITRO OINTMENT FOR NOW AND ADMINISTER IF BLOOD PRESSURE RISES LATER ON.
[2016-12-04] MEDS: FIBERSOURCE HN 1,000 ML BOTTLE GT PRN (09:40)
[2016-12-04] MEDS: VANCOMYCIN 1 GM in IV D5W 250 ML IV SCH (11:38)
--- NOTE | 2016-12-04 12:15 | NUR ---
PT TAKEN DOWN FOR STAT CT HEAD ORDERED BY DR. VIRGEN.
[2016-12-04 15:31] LABS: APPEARANCE,URINE SL CLOUDY (CLEAR); BILIRUBIN,URINE NEGATIVE (NEGATIVE); BLOOD, URINE 3+ Ery/uL (NEGATIVE); COLOR,URINE YELLOW (YELLOW); KETONES,URINE NEGATIVE (NEGATIVE); LEUKOCYTE ESTERASE ,URINE NEGATIVE (NEGATIVE); NITRITE, URINE NEGATIVE (NEGATIVE); PH,URINE 5.5 (5.0-8.0); PROTEIN,URINE TRACE mg/dl (NEGATIVE); UGLUCOSE NEGATIVE (NEGATIVE); UROBILINOGEN,URINE 0.2 EU/dL (0.2)
[2016-12-04 17:04] LABS: BACTERIA,URINE Few /HPF (None Seen); RBC,URINE TOO NUMEROUS TO COUN /HPF (0-2); SQUAMOUS EPITHELIAL CELL,UR Rare /HPF (None Seen); WBC,URINE 0-2 /HPF (0-3)
--- NOTE | 2016-12-04 21:42 | NUR ---
PT RECEIVED INTUBATED ON VENT. PT IS AWAKE WITH NO DISTRESS. TOLERATING VENT SETTINGS. SX'D FOR SML AMT OF THIN TINGED SECRETIONS. VENT ALARMS SET AND AUDIBLE. AMBU BAG AT [facility]. VENT PLUGGED INTO RED OUTLET. WILL CONTINUE TO MONITOR. Addendum: 12/04/16 at 2144 by LIZ QUIÑONES RT Amended: Links added.
[2016-12-05] VITALS (49 sets, daily range): BP systolic 45–167; BP diastolic 15–106
[2016-12-05] MEDS: VANCOMYCIN 1 GM in IV D5W 250 ML IV SCH ×2 (00:45→12:14)
[2016-12-05] MEDS: IV NS 0.9% 250 ML IV PRN (05:00)
[2016-12-05] MEDS: PIPERACILLIN /TAZOBACTAM 3.375 G in IV D5W 50 ML IV SCH ×4 (05:00→23:25)
[2016-12-05 05:02] LABS: BASOPHILS % (AUTO) 0.3 % (0.0-2.0); EOSINOPHILS # (AUTO) 0.7 /CMM (0.0-0.7); EOSINOPHILS % (AUTO) 6.4 % (0.0-6.0); HEMATOCRIT 27 % (39-51); HEMOGLOBIN 8.9 g/dL (13.5-17.5); LYMPHOCYTES # (AUTO) 0.7 /CMM (0.8-4.8); LYMPHOCYTES % (AUTO) 6.7 % (20.0-44.0); MEAN CORPUSCULAR HEMOGLOBIN 28 PG (26.0-33.0); MEAN CORPUSCULAR HGB CONC 33 g/dl (31.0-36.0); MEAN CORPUSCULAR VOLUME 85 fL (80-96); MONOCYTES # (AUTO) 0.6 /CMM (0.1-1.30); MONOCYTES % (AUTO) 5.6 % (2.0-12.0); NEUTROPHILS # (AUTO) 8.8 /CMM (1.8-8.9); PLATELET COUNT (AUTO) 196 /CMM (150-450); RDW COEFFICIENT OF VARIATION 14.8 (11.5-15.0); RED BLOOD CELL COUNT(AUTO) 3.21 MIL/uL (4.5-6.0); WHITE BLOOD COUNT (AUTO) 10.9 K/uL (4.3-11.0)
[2016-12-05 05:36] LABS: CALCIUM, SERUM 7.9 mg/dL (8.5-10.1); MAGNESIUM 2.2 mg/dL (1.8-2.4); PHOSPHORUS 2.3 mg/dL (2.5-4.9); POTASSIUM 3.3 mmol/L (3.5-5.1)
[2016-12-05] MEDS: FIBERSOURCE HN 1,000 ML BOTTLE GT PRN ×2 (06:02→23:25)
[2016-12-05 08:13] LABS: *WEST NILE VIRUS IgG, CSF Negative (Negative)
[2016-12-05] MEDS: DOCUSATE SODIUM LIQ 100 MG/10 ML UDC PO SCH (08:48)
[2016-12-05] MEDS: PANTOPRAZOLE 40 MG/PACK PACK GT SCH (08:55)
[2016-12-05] MEDS: hydrALAZINE HCL 50 MG TABLET PO SCH ×3 (08:55→16:10)
[2016-12-05] MEDS: CARVEDILOL 6.25 MG TABLET PO SCH ×2 (08:55→21:35)
[2016-12-05] MEDS: ASPIRIN 325 MG TABLET PO SCH (08:55)
[2016-12-05] MEDS: FUROSEMIDE 20 MG/2 ML VIAL IV SCH (08:59)
[2016-12-05] MEDS: NITROGLYCERIN 30 GM TUBE TP SCH ×2 (09:00→21:35)
[2016-12-05 09:18] LABS: ABG BASE EXCESS 9.8 mmol/L; ABG OXYGEN SATURATION 96.1 % (92.0-98.5); ABG PCO2 55.1 mmHg (35.0-45.0); ABG PH 7.428 (7.350-7.450); ABG PO2 92.2 mmHg (75.0-100.0); AaDO2 129.6 mmHg; COHb 0.6 % (0.5-1.5); MetHb 0.8 % (0.0-1.5); O2Hb 94.8 % (94.0-97.0); PEEP,BG 5 cm H2O; SITE, ABG Right Radial; VENT MODE, BG CPAP / PS 12
--- NOTE | 2016-12-05 09:45 | NUR ---
RT PT TAKEN OFF VENTILATOR SUPPORT AND PLACED ON COOL AEROSOL 40% @ 10L T-PIECE PER DR. RADU KANG. PT IS AWAKE AND RESPONSIVE, NO SOB OR RESPIRATORY DISTRESS NOTED AT THIS TIME. WILL CONTINUE TO MONITOR. Addendum: 12/05/16 at 1156 by SPIKE CRAMER RT Amended: Links added.
[2016-12-05 10:24] LABS: *WEST NILE VIRUS IgM, CSF Negative (Negative)
[2016-12-05] MEDS ORDERED: POTASSIUM CHLORIDE 20 MEQ TAB.PRT.SR PO ONE (10:30)
[2016-12-05] MEDS ORDERED: POTASSIUM CHLORIDE 20 MEQ POWDER PACKET GT ONE (11:00)
[2016-12-05] MEDS ORDERED: NEUTRA PHOS 1 POWD.PACKET NG ONE (14:00)
[2016-12-06] VITALS (59 sets, daily range): BP systolic 95–183; BP diastolic 48–91
[2016-12-06] MEDS: VANCOMYCIN 1 GM in IV D5W 250 ML IV SCH ×2 (00:01→13:00)
[2016-12-06] MEDS: hydrALAZINE HCL IV 20 MG VIAL IV PRN (02:10)
[2016-12-06] MEDS: ACETAMINOPHEN 650 MG/20.3 ML UDC NG PRN (03:24)
[2016-12-06] MEDS ORDERED: MORPHINE SULFATE INJ 2 MG/ML DISP.SYRIN ONE (04:07)
[2016-12-06] MEDS: MORPHINE SULFATE INJ 2 MG/ML DISP.SYRIN IV PRN (04:12)
[2016-12-06 04:40] LABS: BASOPHILS # (AUTO) 0.1 /CMM (0.0-0.2); BASOPHILS % (AUTO) 0.5 % (0.0-2.0); EOSINOPHILS # (AUTO) 0.9 /CMM (0.0-0.7); EOSINOPHILS % (AUTO) 6.1 % (0.0-6.0); HEMATOCRIT 34 % (39-51); HEMOGLOBIN 10.8 g/dL (13.5-17.5); LYMPHOCYTES # (AUTO) 0.9 /CMM (0.8-4.8); MEAN CORPUSCULAR HEMOGLOBIN 27 PG (26.0-33.0); MEAN CORPUSCULAR HGB CONC 32 g/dl (31.0-36.0); MEAN CORPUSCULAR VOLUME 85 fL (80-96); MONOCYTES # (AUTO) 0.7 /CMM (0.1-1.30); MONOCYTES % (AUTO) 4.4 % (2.0-12.0); NEUTROPHILS # (AUTO) 12.4 /CMM (1.8-8.9); PLATELET COUNT (AUTO) 305 /CMM (150-450); RDW COEFFICIENT OF VARIATION 14.8 (11.5-15.0); RED BLOOD CELL COUNT(AUTO) 3.96 MIL/uL (4.5-6.0); WHITE BLOOD COUNT (AUTO) 14.9 K/uL (4.3-11.0)
[2016-12-06 04:57] LABS: CALCIUM, SERUM 8.4 mg/dL (8.5-10.1); CREATININE 0.9 mg/dL (0.6-1.3); MAGNESIUM 2.2 mg/dL (1.8-2.4); PHOSPHORUS 3.5 mg/dL (2.5-4.9); POTASSIUM 3.7 mmol/L (3.5-5.1)
--- NOTE | 2016-12-06 05:22 | NUR ---
PT ON AEROSOL TACHYPNEIC AND INCREASED WOB. PLACED BACK ON VENT AC 12, 550, 40%, +5. RN NOTIFIED. WILL CONTINUE TO MONITOR.
[2016-12-06] MEDS: PIPERACILLIN /TAZOBACTAM 3.375 G in IV D5W 50 ML IV SCH ×4 (05:25→23:59)
[2016-12-06] MEDS: IV NS 0.9% 250 ML IV PRN (05:25)
--- NOTE | 2016-12-06 05:30 | NUR ---
LOAD CHECKER PT NOTED WITH INCREASED BLOOD PRESSURE MEDICATED WITH PRN HYDRALAZINE, TYLENOL AND MORPHINE WITH NO EFFECT; PT VS CONTINUE TO CHANGE WITH INCREASED WORK OF BREATHING AND PT PLACED BACK ON VENT. PT VSS APPEAR PLACING BACK ON VENT. CONTINUE TO MONITOR.
--- NOTE | 2016-12-06 08:00 | NUR ---
ICU/RN INDICIAL NOTES,AM RECEIVED REPORT FROM NIGHT NURSE. ETT 7.5 AND 22CM AT THE LIP, PT PLACED BACK ON VENT AT 0500 WITH SETTINGS ORDERED. PT ALERT, EYES OPEN, IS NOT FOLLOWING COMMANDS AT THIS TIME. NO ACUTE DISTRESS NOTED AT THIS TIME. PT SINUS ON TELE, PACEMAKER IN PLACE, CURRENTLY NOT PACING. FIBERSOURCE INFUSING AT 65ML/HR VIA OG TUBE, TOLERATING WELL. PARRA DRAINING YELLOW URINE. PIV PATENT AND INTACT, NO S/S OF INFECTION OR INFILTRATION NOTED.
[2016-12-06] MEDS: hydrALAZINE HCL 50 MG TABLET PO SCH ×3 (09:52→17:16)
[2016-12-06] MEDS: DOCUSATE SODIUM LIQ 100 MG/10 ML UDC PO SCH (09:52)
[2016-12-06] MEDS: ASPIRIN 325 MG TABLET PO SCH (09:52)
[2016-12-06] MEDS: PANTOPRAZOLE 40 MG/PACK PACK GT SCH (09:52)
[2016-12-06] MEDS: FUROSEMIDE 20 MG/2 ML VIAL IV SCH (09:52)
[2016-12-06] MEDS: CARVEDILOL 6.25 MG TABLET PO SCH ×2 (09:53→21:03)
[2016-12-06] MEDS: NITROGLYCERIN 30 GM TUBE TP SCH ×2 (09:53→21:03)
--- NOTE | 2016-12-06 10:30 | NUR ---
ICU/RN: MD AT BEDSIDE. PT ASSESSED. 0500 PT FAILED WEANING AND PLACED BACK ON VENT SUPPORT. FAMILY AT BEDSIDE. DR. LOVELACE DISCUSSED WITH FAMILY THE NEED OF A TRACHEOSTOMY INSERTION ALONG WITH A PEG FOR CONTINUOUS FEEDINGS. FAMILY AGREED AND CONSENT WAS GIVEN FOR BOTH PROCEDURES.
[2016-12-06] MEDS: FIBERSOURCE HN 1,000 ML BOTTLE GT PRN (17:16)
--- NOTE | 2016-12-06 19:17 | NUR ---
ICU/RN ENDING NOTES,AM REPORT WILL BE ENDORSED TO NIGHT NURSE FOR CONTINUATION OF CARE. PT CONTINUES ON VENT WITH SETTINGS ORDERED BY MD. NO ACUTE DISTRESS NOTED, PT SINUS ON TELE. TUBE FEEDING INFUSING, TOLERATING WELL, NO RESIDUAL NOTED. PT SCHEDULED FOR TRACHEOSTOMY AND PEG PLACEMENT TOMORROW. ALL NEEDS MET, SAFETY MEASURES TAKEN, BED IN LOW POSITION, SIDE RAILS UP, CALL LIGHT WITHIN REACH, UNABLE TO USE. BILATERAL WRIST RESTRAINTS ON FOR SAFETY, ASSESSED PER PROTOCOL.
--- NOTE | 2016-12-06 19:30 | NUR ---
NEWS LIBRARIAN RCD PT W/DX ALOC; PT IS AWAKE/DROWSY ABLE TO NOD YES/NO TO ANSWER QUESTIONS. NSR 70s ON MONITOR. PT INTUBATED 7.5 @ 22 W/VENT SETTINGS AC 16 550 40% 5; THIN WHITE SECRETIONS NOTED. SHAHID MIDLINE W/NS @ TKO. PARRA CATHETER DRAINING MODERATE AMOUNT OF YELLOW URINE. PT SCHEDULED FOR TRACH TOMORROW @ 1800. HOB ELEVATED WITH BED LOCKED AND IN LOW POSITION.
[2016-12-07] VITALS (63 sets, daily range): BP systolic 97–214; BP diastolic 38–114
[2016-12-07 04:59] LABS: CALCIUM, SERUM 8.2 mg/dL (8.5-10.1); CREATININE 0.9 mg/dL (0.6-1.3); POTASSIUM 4.1 mmol/L (3.5-5.1)
[2016-12-07 05:05] LABS: INR 1.06 (0.87-1.13); PROTHROMBIN TIME 11.4 SECS (9.5-12.7)
[2016-12-07] MEDS: IV NS 0.9% 250 ML IV PRN (06:01)
[2016-12-07] MEDS: PIPERACILLIN /TAZOBACTAM 3.375 G in IV D5W 50 ML IV SCH ×4 (06:01→23:22)
--- NOTE | 2016-12-07 08:00 | NUR ---
ICU/RN INDICIAL NOTES,AM RECEIVED REPORT FROM NIGHT NURSE. ETT 7.5 AND 22CM AT THE LIP, NO ACUTE DISTRESS NOTED AT THIS TIME. PT OPENS EYES OPEN, AND FOLLOWS SIMPLE COMMANDS. PT SINUS ON TELE, PACEMAKER IN PLACE, CURRENTLY NOT PACING. PT NPO FOR TRACH AND PEG PLACEMENT TODAY.PARRA DRAINING YELLOW URINE. PIV PATENT AND INTACT, NO S/S OF INFECTION OR INFILTRATION NOTED. CONSENTS IN CHART FOR PROCEDURES. ALL NEEDS WILL BE MET, SAFETY MEASURES TAKEN. BILATERAL WRIST RESTRAINTS ON, ASSESSED PER PROTOCOL.
[2016-12-07] MEDS: ASPIRIN 325 MG TABLET PO SCH (08:13)
[2016-12-07] MEDS: DOCUSATE SODIUM LIQ 100 MG/10 ML UDC PO SCH (08:13)
[2016-12-07] MEDS: PANTOPRAZOLE 40 MG/PACK PACK GT SCH (08:14)
[2016-12-07] MEDS: hydrALAZINE HCL 50 MG TABLET PO SCH ×3 (08:14→17:21)
[2016-12-07] MEDS: CARVEDILOL 6.25 MG TABLET PO SCH ×2 (08:14→21:05)
[2016-12-07] MEDS: FUROSEMIDE 20 MG/2 ML VIAL IV SCH (08:14)
[2016-12-07] MEDS: NITROGLYCERIN 30 GM TUBE TP SCH ×2 (08:15→21:06)
[2016-12-07] MEDS: ACETAMINOPHEN 650 MG/20.3 ML UDC NG PRN ×2 (08:21→21:04)
[2016-12-07 08:50] LABS: ABG BASE EXCESS 9.5 mmol/L; ABG OXYGEN SATURATION 95.6 % (92.0-98.5); ABG PCO2 43.2 mmHg (35.0-45.0); ABG PH 7.508 (7.350-7.450); ABG PO2 80.9 mmHg (75.0-100.0); AaDO2 154.6 mmHg; COHb 0.8 % (0.5-1.5); MetHb 0.8 % (0.0-1.5); O2Hb 94.1 % (94.0-97.0); PEEP,BG 5 cm H2O; SITE, ABG Right Radial; VT, ABG 550 mL
--- NOTE | 2016-12-07 09:03 | NUR ---
VENT CHANGES MADE RADAMES ZARATE MD ORDER: VT 500 ml Addendum: 12/07/16 at 0904 by RICCI MATHEW RT Amended: Links added.
--- NOTE | 2016-12-07 09:10 | NUR ---
ICU/RN: POST ABD VENT CHANGES MADE PER
--- NOTE | 2016-12-07 12:30 | NUR ---
ICU/RN: CALLED PHARMACY REGARDING VANCO LEVEL. PER IONA I AM TO ADMINISTER VANCO SCHEDULED DESPITE TROUGH OF 23. SINCE ONE DOSE WAS HELD
[2016-12-07] MEDS: VANCOMYCIN 1 GM in IV D5W 250 ML IV SCH ×3 (12:40)
[2016-12-07] MEDS ORDERED: LIDOCAINE 1%-EPI 1:100,000 20 ML VIAL ONE (19:00)
--- NOTE | 2016-12-07 19:00 | NUR ---
ICU/RN: OR AT BEDSIDE TO TAKE PT FOR TRACHEOSTOMY. REPORT BEING ENDORSED TO NIGHT NURSE. ALL NEEDS MET. SAFETY MEASURES TAKEN. PT CONTINUES ON VENT SETTINGS ORDERED BY MD. NO ACUTE DISTRESS NOTED.
[2016-12-07] MEDS ORDERED: FENTANYL PF 100MCG/2ML AMPUL ONE (19:14)
[2016-12-07] MEDS ORDERED: ATRACURIUM 100MG/10 ML MDV IV ONE (19:15)
--- NOTE | 2016-12-07 19:30 | NUR ---
RN NOTES RECEIVED REPORT FROM [facility] AM NURSE, BUT BEFORE COMPLETE ASSESSMENT DONE, PX IS ALREADY BEING TRANSPORTED TO OR FOR TRACHEOSTOMY INSERTION. V/S WNL DURING TRANSPORT.
--- NOTE | 2016-12-07 20:15 | NUR ---
RN NOTES RECEIVED PX FROM OR S/P TRACHEOSTOMY INSERTION WITH SHILEY 8 WITH CUFF INTACT, RT AT [facility] CONNECTING PX TO VENT; PX AWAKE, FOLLOWS COMMAND BY SQUEEING HAND AND LETTING GO BUT THIS IS INCONSISTENT; NGT WAS PULLED OUT DURING OPERATION; WITH IV ACCESS LEFT UA FLUSHED PATENT DRESSING CLEAN DRY INTACT; WITH PARRA CATH TAPED TO THIGH TO BAG BY GRAVITY, BILAT DVT PUMPS ON, HEELS OFFLOADED; TURNED PX TO THE RIGHT WITH HOB AT 30 ANGLE; SR ON MONITOR, BP INCREASED, HYDRALAZINE IV GIVEN BY RECOVERY ROOM NURSE; RT SUCITONED PX TRACHEALLY, TEMP 100.0, COOLING MEASURES GIVEN.
--- NOTE | 2016-12-07 20:20 | NUR ---
PT RCVD ON MECH VENT WITH NOTED SETTINGS. TRACH SIZE OF SHILEY 8 , SXN MODERATE AMOUNT OF BLOODY SECRETIONS. VENT ALARM CHECKED AND AUDIBLE. VENT PLUGGED INTO RED OUTLET. AMBU BAG AT BEDSIDE. NO RESPIRATORY DISTRESS AT THIS TIME. WILL CONTINUE TO MONITOR
[2016-12-07] MEDS ORDERED: IV SET PRIMARY PUMP SET 1 EA INFUS.SET MC ONE (20:44)
[2016-12-07] MEDS ORDERED: IV D5W 1,000 ML IV ONE (20:44)
[2016-12-07] MEDS ORDERED: SECONDARY IV SET 1 EA INFUS.SET MC ONE (20:44)
[2016-12-07] MEDS ORDERED: IV D5W 1,000 ML IV SCH (21:00)
--- NOTE | 2016-12-07 21:00 | NUR ---
RN NOTES INFORMED DR SUMMERS OF TRACH PROCEDURE, INSERTED NGT LEFT NARE PER MD ORDER, NGT VERIFIED BY AUSCULTATION, CONFIRMED WITH ANOTHER RN; STARTED D5W IVF PER MD ORDER. FAMILY (BROTHER) CAME, AWARE OF PX CONDITION.
[2016-12-08] VITALS (49 sets, daily range): BP systolic 89–206; BP diastolic 43–108
--- NOTE | 2016-12-08 00:33 | NUR ---
RN NOTES CONDITION UNCHANGED; SUCTIONED ORALLY AND TRACHEALLY, SECRETIONS NOW LESS BLOODY; REPOSITIONED, V/S WNL.
[2016-12-08] MEDS: MORPHINE SULFATE INJ 2 MG/ML DISP.SYRIN IV PRN ×5 (00:55→21:49)
[2016-12-08] MEDS: VANCOMYCIN 0.75 GM in IV D5W 250 ML IV SCH ×2 (00:57→13:00)
[2016-12-08] MEDS ORDERED: LORAZEPAM INJ 2 MG/ML VIAL IV PRN (03:00)
[2016-12-08] MEDS ORDERED: LORAZEPAM INJ 2 MG/ML VIAL ONE (03:05)
[2016-12-08] MEDS: hydrALAZINE HCL IV 20 MG VIAL IV PRN (03:44)
--- NOTE | 2016-12-08 04:00 | NUR ---
RN NOTES PX RR SUDDENLY INCREASED TO MAX OF 41/MIN, O2 SAT MAINTAINED AT MORE THAN 93%, BREATH SOUNDS RHONCHOUS BUT EQUAL BILATERALLY, CUFF INTACT, RT CARLY AT BEDSIDE WELL; PX WAS AWAKE, RESTLESS, AND SO DR. SUMMERS WAS MADE AWARE OF THIS AN HOUR AGO AND ATIVAN WAS GIVEN 1 MG IV; HOWEVER, IT WAS LATER FOUND OUT THAT TEMP WAS 102.0, COOLING MEASURES GIVEN, AND DR. SUMMERS WAS PAGED BACK.
--- NOTE | 2016-12-08 04:37 | NUR ---
RN NOTES TEMP STILL 102.0, CONTINUED COOLING MEASURES, HOWEVER RR NOW DECREASED TO 31, BP NOW , REPAGED DR. SUMMERS.
--- NOTE | 2016-12-08 05:00 | NUR ---
RN NOTES DR. SUMMERS CALLED BACK, MADE AWARE OF TEMP OF 102, AND OF INCREASED RR UP TO 40'S AND BP AT 200 AND OF URINE CHARACTER; ORDER BLOOD CULTURE AND URINE CULTURE.
[2016-12-08 05:02] LABS: CALCIUM, SERUM 7.7 mg/dL (8.5-10.1); POTASSIUM 3.4 mmol/L (3.5-5.1)
[2016-12-08 05:05] LABS: BASOPHILS # (AUTO) 0.1 /CMM (0.0-0.2); BASOPHILS % (AUTO) 0.4 % (0.0-2.0); EOSINOPHILS # (AUTO) 0.4 /CMM (0.0-0.7); EOSINOPHILS % (AUTO) 2.5 % (0.0-6.0); HEMATOCRIT 28 % (39-51); HEMOGLOBIN 9.3 g/dL (13.5-17.5); LYMPHOCYTES % (AUTO) 5.7 % (20.0-44.0); MEAN CORPUSCULAR HEMOGLOBIN 28 PG (26.0-33.0); MEAN CORPUSCULAR HGB CONC 33 g/dl (31.0-36.0); MEAN CORPUSCULAR VOLUME 85 fL (80-96); MONOCYTES # (AUTO) 0.7 /CMM (0.1-1.30); MONOCYTES % (AUTO) 4.1 % (2.0-12.0); NEUTROPHILS # (AUTO) 14.8 /CMM (1.8-8.9); NEUTROPHILS % (AUTO) 87.3 % (43.0-81.0); PLATELET COUNT (AUTO) 340 /CMM (150-450); RDW COEFFICIENT OF VARIATION 15.3 (11.5-15.0); RED BLOOD CELL COUNT(AUTO) 3.34 MIL/uL (4.5-6.0); WHITE BLOOD COUNT (AUTO) 16.9 K/uL (4.3-11.0)
[2016-12-08] MEDS: PIPERACILLIN /TAZOBACTAM 3.375 G in IV D5W 50 ML IV SCH ×3 (05:33→17:10)
--- NOTE | 2016-12-08 06:15 | NUR ---
RN NOTES CLEANED PX AND CHANGED GOWN AND BED LINENS, HAD 1 BM, NO SKIN BREAKDOWN; ORAL, PRARA AND TRACH CARE RENDERED; TOLERATED PROCEDURES; PX WAS GIVEN MORPHINE 30 MINUTES AGO FOR PAIN; RR HAS NOW DECREASED TO 24-28/MIN, WITH BP WNL; LATEST TEMP IS 100.2, CONTINUED COOLING MEASURES; SUCTIONED AND REPOSITIONED; IV ACCESS PATENT AND INTACT; DUE MEDS GIVEN; WILL ENDORSE TO NEXT RN.
--- NOTE | 2016-12-08 07:27 | NUR ---
RN NOTES REPORT GIVEN TO [facility] FOR CONTINUITY OF CARE.
--- NOTE | 2016-12-08 08:00 | NUR ---
FIELD LIABILITY GENERALIST; ASSESSMENT RECEIVED PT VENTED VIA TRACH. S/P TRACH PLACEMENT 12/07/16. NOTED PT LABOR BREATHING, TACHYPNEIC DESATURATING. RT NOTIFIED. FIO2 INCREASED TO 50%. DR. LOVELACE PAGED AWAITING CALL BACK. PARRA CATH INTACT DRAINING TO GRAVITY CLEAR MISSY YELLOW URINE. NG TUBE TO RIGHT NARE CLAMPED. POSITIVE FOR AUSCULTATION AND ASPIRATION. MIDLINE TO LEFT UPPER ARM INTACT INFUSING D5W AT 75ML/HR. NOTED SODIUM LEVEL AT 126 WILL DISCUSS WITH MD WHEN ROUNDING. PT SCHEDULED FOR PEG PLACEMENT TODAY. PT NPO STATUS EXCEPT FOR MEDICATIONS. WILL F/U WITH DR. LOVELACE CALL BACK REGARDING PTS NEED FOR SEDATION.
[2016-12-08] MEDS: LORAZEPAM INJ 2 MG/ML VIAL IV PRN (08:41)
[2016-12-08] MEDS: FUROSEMIDE 20 MG/2 ML VIAL IV SCH (08:41)
[2016-12-08] MEDS: DOCUSATE SODIUM LIQ 100 MG/10 ML UDC PO SCH (08:41)
[2016-12-08] MEDS: PANTOPRAZOLE 40 MG/PACK PACK GT SCH (08:42)
[2016-12-08] MEDS: ASPIRIN 325 MG TABLET PO SCH (08:42)
[2016-12-08] MEDS: hydrALAZINE HCL 50 MG TABLET PO SCH ×3 (08:42→16:18)
[2016-12-08] MEDS: CARVEDILOL 6.25 MG TABLET PO SCH ×2 (08:43→21:00)
[2016-12-08] MEDS: NITROGLYCERIN 30 GM TUBE TP SCH ×2 (08:46→21:00)
[2016-12-08] MEDS ORDERED: IV D5W 1,000 ML IV PRN (09:18)
[2016-12-08] MEDS ORDERED: IV SET PRIMARY PUMP SET 1 EA INFUS.SET MC ONE ×3 (09:23→21:42)
[2016-12-08] MEDS: PROPOFOL 100 ML IV PRN ×3 (09:29→22:05)
--- NOTE | 2016-12-08 10:00 | NUR ---
CORD MAKER; SEDATION DIPRIVAN STARTED INCREASED DIPRIVAN NOW TO 30MCG/KG/MIN. PT APPEARS MORE CALM BREATHING EVENLY. AND WITHOUT DISTRESS.
[2016-12-08] MEDS ORDERED: PROPOFOL 20 ML IV ONE (13:54)
[2016-12-08] MEDS ORDERED: PROPOFOL 0 ML IV ONE (14:33)
[2016-12-08] MEDS ORDERED: ANESTHESIA TRAY IN PYXIS 1 EA TRAY MC ONE (15:14)
--- NOTE | 2016-12-08 15:30 | NUR ---
OUTSIDE PARTS SALES; S/P PEG PEG PLACEMENT COMPLETED. PAT RN AT BEDSIDE TO RECOVER PT. SEE PROGRESS NOTES.
[2016-12-08] MEDS: POTASSIUM CL. PREMIX PERIPHER. 50 ML IV SCH ×2 (15:59→17:11)
[2016-12-08] MEDS: IV NS 0.9% 250 ML IV PRN (17:20)
[2016-12-08] MEDS: MEROPENEM 500 MG in IV NS 0.9% 50 ML IV SCH (21:48)
--- NOTE | 2016-12-08 21:50 | NUR ---
CHOCOLATE FINISHER DF PT BP MEDS HELD 2ND DECREASED BP OF 104/51 PARAMETERS TO HOLD IF SBP LESS THAN 120. PT WITH FLACC SCORE OF 2 PT RESTLESS OVERBREATHING VENT RATE OF 28 PT APPEARING UNCOMFORTABLE LAST MORPHINE GIVEN AT 1750. MORPHINE 2MG IVP ADMIN NOW. DIPRIVAN INCREASED TO 40 MCG 2ND TO RR OF 28.
[2016-12-08] MEDS: FIBERSOURCE HN 1,000 ML BOTTLE GT PRN ×2 (22:05→22:37)
--- NOTE | 2016-12-08 22:43 | NUR ---
RETAIL SUPPORT MANAGER DF FIONA VEHICLE CALIBRATION ENGINEER AT BEDSIDE TO SEE PT. FAMILY WAS PREVIOUSLY AT BEDSIDE UPDATED REGARDING POC.
[2016-12-09] VITALS (55 sets, daily range): BP systolic 79–134; BP diastolic 44–72
[2016-12-09] MEDS: VANCOMYCIN 0.75 GM in IV D5W 250 ML IV SCH ×2 (01:55→12:59)
[2016-12-09] MEDS ORDERED: PROPOFOL 100 ML IV ONE (02:24)
[2016-12-09] MEDS: PROPOFOL 100 ML IV PRN ×2 (02:29→12:35)
[2016-12-09] MEDS: MORPHINE SULFATE INJ 2 MG/ML DISP.SYRIN IV PRN (03:07)
--- NOTE | 2016-12-09 03:07 | NUR ---
WOMEN'S LACROSSE COACH DF MORPHINE 2MG IVP ADMIN PRIOR TO AM CARE PT AGITATED,RESTLESS, OVER BREATHING VENT.CURRENTLY SEDATED ON PROPOFOL AT 40MCG/MIN IV.
[2016-12-09 04:31] LABS: BASOPHILS % (AUTO) 0.1 % (0.0-2.0); EOSINOPHILS # (AUTO) 1.9 /CMM (0.0-0.7); EOSINOPHILS % (AUTO) 10.7 % (0.0-6.0); HEMATOCRIT 27 % (39-51); HEMOGLOBIN 8.7 g/dL (13.5-17.5); LYMPHOCYTES # (AUTO) 0.8 /CMM (0.8-4.8); LYMPHOCYTES % (AUTO) 4.5 % (20.0-44.0); MEAN CORPUSCULAR HEMOGLOBIN 27 PG (26.0-33.0); MEAN CORPUSCULAR HGB CONC 32 g/dl (31.0-36.0); MEAN CORPUSCULAR VOLUME 84 fL (80-96); MONOCYTES # (AUTO) 0.5 /CMM (0.1-1.30); MONOCYTES % (AUTO) 2.8 % (2.0-12.0); NEUTROPHILS # (AUTO) 14.8 /CMM (1.8-8.9); NEUTROPHILS % (AUTO) 81.9 % (43.0-81.0); PLATELET COUNT (AUTO) 300 /CMM (150-450); RED BLOOD CELL COUNT(AUTO) 3.21 MIL/uL (4.5-6.0); WHITE BLOOD COUNT (AUTO) 18.1 K/uL (4.3-11.0)
[2016-12-09 04:46] LABS: CREATININE 1.4 mg/dL (0.6-1.3); POTASSIUM 4.5 mmol/L (3.5-5.1)
[2016-12-09] MEDS: MEROPENEM 500 MG in IV NS 0.9% 50 ML IV SCH ×3 (05:51→21:13)
--- NOTE | 2016-12-09 06:15 | NUR ---
BRANDING MACHINE OPERATOR DF BP OF 81/41,86/41 DIPRIVAN AT 40MCG DECREASED TO 20MCG.WILL MONITOR BP GOAL TO KEEP SBP ABOVE 90. Addendum: 12/09/16 at 0637 by CHIVO DALEY RN BRANDING MACHINE OPERATOR BP INCREASED TO 109/51.
--- NOTE | 2016-12-09 07:35 | NUR ---
SOLDERING MACHINE OPERATOR AUTOMATIC RECEIVED PATIENT FROM THE PREVIOUS SHIFT. PATIENT IS IN BED. RESTING COMFORTABLY. NO ACUTE DISTRESS NOTED. EVEN AND NON LABORED BREATHING PATTERN. SEDATED ON DIPRIVAN 30MCG/KG/MIN. TURNED AND REPOSITIONED FOR COMFORT AND WOUND PREVENTION. WILL CONTINUE TO MONITOR AND PROVIDE CARE.
[2016-12-09] MEDS ORDERED: IV SET PRIMARY PUMP SET 1 EA INFUS.SET MC ONE ×3 (07:44→20:32)
[2016-12-09] MEDS: hydrALAZINE HCL 50 MG TABLET PO SCH ×2 (09:00→12:34)
[2016-12-09] MEDS: NITROGLYCERIN 30 GM TUBE TP SCH (09:00)
[2016-12-09] MEDS ORDERED: CARVEDILOL 6.25 MG TABLET PO SCH (09:00)
[2016-12-09] MEDS: BACITRACIN ZINC OINT (15 GM) 15 GM TUBE TP SCH (09:43)
[2016-12-09] MEDS: HYDROGEN PEROXIDE 480 ML BOTTLE TP SCH (09:44)
[2016-12-09] MEDS: PANTOPRAZOLE 40 MG/PACK PACK GT SCH (09:48)
[2016-12-09] MEDS: DOCUSATE SODIUM LIQ 100 MG/10 ML UDC PO SCH (09:48)
[2016-12-09] MEDS: FUROSEMIDE 20 MG/2 ML VIAL IV SCH (09:48)
[2016-12-09] MEDS: ASPIRIN 325 MG TABLET PO SCH (09:48)
--- NOTE | 2016-12-09 10:10 | NUR ---
EMBROIDERER HAND DURING 15 MINUTE SEDATION VACATION PATIENT NOTED TO BE TACHYPNEIC WITH AN RR OF 26. PATIENT IS UNABLE TO FOLLOW COMMANDS. FLACCID EXTREMITIES. PUPILS ARE REACTIVE. WILL CONTINUE TO MONITOR AND PROVIDE CARE.
[2016-12-09 12:52] LABS: ABG BASE EXCESS 3.1 mmol/L; ABG OXYGEN SATURATION 96.1 % (92.0-98.5); ABG PCO2 71.7 mmHg (35.0-45.0); ABG PH 7.257 (7.350-7.450); ABG PO2 98.3 mmHg (75.0-100.0); AaDO2 360.3 mmHg; COHb 1.1 % (0.5-1.5); MetHb 0.9 % (0.0-1.5); O2Hb 94.2 % (94.0-97.0); PEEP,BG 10 cm H2O; SITE, ABG Right Radial; VENT MODE, BG A/C; VT, ABG 450 mL
[2016-12-09] MEDS ORDERED: SECONDARY IV SET 1 EA INFUS.SET MC ONE (13:11)
[2016-12-09] MEDS ORDERED: IV NS 0.9% 250 ML IV ONE ×2 (13:11→13:30)
--- NOTE | 2016-12-09 13:51 | NUR ---
ACCOUNTING/FINANCE TUTOR PATIENT NOTED TO BE HYPOTENSIVE. AFEBRILE. RN INFORMED THE GEAR MACHINE OPERATOR. 250 ML IV BOLUS GIVEN PER MD RECOMMENDATION. LEVOPHED ORDERS RECEIVED. BP MEDS DISCONTINUED AND AMENDED. WILL CONTINUE TO MONITOR AND PROVIDE CARE.
[2016-12-09] MEDS: NOREPINEPHRINE 16 MG in IV D5W 500 ML IV PRN ×2 (13:55→14:13)
[2016-12-09] MEDS ORDERED: VANCOMYCIN 0.75 GM in IV D5W 250 ML IV SCH (23:00)
[2016-12-10] VITALS (106 sets, daily range): BP systolic 64–161; BP diastolic 23–91
[2016-12-10] MEDS: PROPOFOL 100 ML IV PRN ×5 (01:02→21:19)
--- NOTE | 2016-12-10 02:30 | NUR ---
ICU/ENVIRONMENTAL COMPLIANCE TECHNICIAN PT HAD AN INCREASE HEART RATE TO 150'S. PT WAS TURNED AND REPOSITIONED FOR COMFORT AND CARE. NOTIFIED NURSE ABOUT POSSIBLE PAIN. MORPHINE 2MH IVP GIVEN FOR POSSIBLE PAIN. WILL MONITOR THIS PT.
[2016-12-10] MEDS: MORPHINE SULFATE INJ 2 MG/ML DISP.SYRIN IV PRN (02:36)
--- NOTE | 2016-12-10 02:45 | NUR ---
ICU/RETAIL TIRE SALES MANAGER PT'S HEART RATE INCREASED FROM 150'S TO 170'S NOW AFIB FROM SR. ALSO AT THIS TIME INCREASE SEDATION FROM 30 TO 40 MCG. ALSO CALLED RT ABOUT SOME NOISE FROM PT. RT INFLATED CUFF 2CC. WILL CONTINUE TO MONITOR THIS PT.
--- NOTE | 2016-12-10 03:00 | NUR ---
ICU/TELEPHONE WORKER HEART RATE STILL 170'S, INCREASE SEDATION TO 50MCG, ASLO BP DROPPED CHARGE AWARE NOW INCREASED LEVO TO 6MCG FROM 3 MCG. B/P WAS IN THE 70'S. WILL MONITOR THIS PT.
[2016-12-10] MEDS ORDERED: DILTIAZEM HCL 25 MG IV ONE (03:18)
--- NOTE | 2016-12-10 03:25 | NUR ---
ICU/TATTOOER HEART RATE SUSTAINED TO 170'S MD RONDA CALLED ABOUT THIS GAVE ORDER TO GIVE CARDIZEM 10MG IVP Q 6HRS PRN. CHANGE AWARE OF THE ORDERS AND MEDICATION WAS GIVEN. WILL MONITOR THIS PT.
[2016-12-10] MEDS: DILTIAZEM HCL 50 MG IV IV PRN (03:30)
--- NOTE | 2016-12-10 03:30 | NUR ---
TEXTILES PRINTER DF PT WITH AFIB RATE OF 160-170 ADMIN CARDIZEM 10MG IVP PER MD SUMMERS. PT HEART RATE DECREASED TO 105 AFTER ADMIN.
--- NOTE | 2016-12-10 03:41 | NUR ---
ICU/MARKETING PROPOSAL SPECIALIST PT APPEARS TO HAVE RESPONDED TO CARDIZEM GIVEN IVP 10-15 MINUTES AGO. HEART RATE IS NOW 80'S FROM 170'S. PT ALSO CONVERTED FROM AFIB TO SR. WILL CONTINUE TO MONITOR THIS PT.
[2016-12-10] MEDS: FIBERSOURCE HN 1,000 ML BOTTLE GT PRN (05:08)
[2016-12-10] MEDS: IV NS 0.9% 250 ML IV PRN (05:10)
[2016-12-10 05:11] LABS: CALCIUM, SERUM 7.4 mg/dL (8.5-10.1); CREATININE 2.1 mg/dL (0.6-1.3); POTASSIUM 3.4 mmol/L (3.5-5.1)
[2016-12-10] MEDS: MEROPENEM 500 MG in IV NS 0.9% 50 ML IV SCH ×3 (05:14→21:19)
--- NOTE | 2016-12-10 06:22 | NUR ---
ICU/HUMAN RESOURCES SUPPORT SPECIALIST PT HAS G/TUBE FEEDING WITH HIGH RESIDUALS AT 65CC/HR. RESTARTED THE FEEDING AT 25ML/HR GOAL IS 65ML. LONG IT CAN BE ABSORBED. WILL PASS ON TO DAY SHIFT TO WATCH RESIDUALS.
--- NOTE | 2016-12-10 07:15 | NUR ---
LEAD PHP DEVELOPER NOTES RECEIVED PATIENT SEDATED , RESPONSIVE TO PAIN STIMULI , OPENS EYES , NOT IN ACUTE DISTRESS , RESPIRATIONS EVEN AND UNLABORED WITH SPO2 OF 100% VIA MECHANICAL VENTILATOR SETTING ORDERED , SHILEY # [address] NOTED WITH POSITIONAL AIR LEAK , DRESSING IN PLACE , SR 85 ON BEDSIDE MONITOR , GT PATENT AND INTACT , GT FEEDING OF FIBERSOURCE @ 25ML/HR INFUSING WELL WITH NO RESIDUALS NOTED , FC DRAINING VIA GRAVITY WITH MISSY COLORED URINE WITH SEDIMENTS , MARIANNE PICC LINE WITH NS @ TKO , DIPRIVAN @ 40MCG/MIN , LEVOPHED @ 6MCG/MIN INFUSING WELL , ALL NEEDS ATTENDED , BED ON LOW AND LOCKED POSITION , SIDE RAILS X2 ,CALL LIGHT WITHIN REACH , HOB @ 45 , WILL CONTINUE TO MONITOR
[2016-12-10] MEDS: HYDROGEN PEROXIDE 480 ML BOTTLE TP SCH (08:26)
[2016-12-10] MEDS: ASPIRIN 325 MG TABLET PO SCH (08:26)
[2016-12-10] MEDS: PANTOPRAZOLE 40 MG VIAL IV SCH (08:26)
[2016-12-10] MEDS: DOCUSATE SODIUM LIQ 100 MG/10 ML UDC PO SCH (08:26)
[2016-12-10] MEDS: BACITRACIN ZINC OINT (15 GM) 15 GM TUBE TP SCH (08:27)
[2016-12-10] MEDS ORDERED: IV NS 0.9% 500 ML IV ONE (09:05)
--- NOTE | 2016-12-10 09:10 | NUR ---
SERVICES MANAGER NOTES DR GEORGE AT BEDSIDE , DISCUSSED LABS , ON LEVOPHED @ 6MCG/MIN WITH SBP ABOVE 90 , PT HAS EPISODE OF AFIB LAST NIGHT , CARDIZEM IVP WAS GIVEN , NO IVF , ON GT FEEDING OF FIBERSOURCE @ 25ML/HR NOTED WITH HIGH RESIDUALS LAST NIGHT , MD AWARE , ORDERED TO MEASURE CVP .
[2016-12-10 09:22] LABS: ABG BASE EXCESS -0.9 mmol/L; ABG OXYGEN SATURATION 94.3 % (92.0-98.5); ABG PCO2 44.6 mmHg (35.0-45.0); ABG PO2 81.9 mmHg (75.0-100.0); AaDO2 333.1 mmHg; MetHb 0.7 % (0.0-1.5); O2Hb 92.7 % (94.0-97.0); PEEP,BG 10 cm H2O; SITE, ABG Left Radial; VENT MODE, BG ac 26 450 65% +10; VT, ABG 450 mL
[2016-12-10] MEDS ORDERED: IV SET PRIMARY PUMP SET 1 EA INFUS.SET MC ONE ×4 (09:23→21:44)
[2016-12-10] MEDS ORDERED: AMIODARONE 150 MG in IV D5W 100 ML IV ONE (09:30)
--- NOTE | 2016-12-10 09:30 | NUR ---
AIRCRAFT ELECTRICAL SYSTEMS SPECIALIST NOTES MARGE RE STARTED PT NOTED WITH DISTRESS , HR 120'S , UNABLE TO ASSESS NEURO STATUS, WILL CONTINUE TO MONITOR
--- NOTE | 2016-12-10 09:38 | NUR ---
COMPLIANCE OFFICER NOTES SPOKE WITH DR HERRERA , NOTIFY THAT PT HAS HIGH RESIDUALS LAST NIGHT , 200 ML IN AMOUNT , PT ON 25ML/HR OF FIBERSOURCE AT THIS TIME , TOLERATING WELL WITH NO RESIDUALS NOTED , PER MD CONTINUE FEEDING RATE , ORDER CARRIED OUT
[2016-12-10] MEDS ORDERED: POTASSIUM CL. PREMIX PERIPHER. 50 ML IV SCH (09:43)
[2016-12-10] MEDS ORDERED: POTASSIUM CHLORIDE 20 MEQ POWDER PACKET GT ONE (10:00)
--- NOTE | 2016-12-10 10:00 | NUR ---
HOG TENDER NOTES DR TORRES AT BEDSIDE ,DISCUSSED PT LABS , OLIGURIC NOTED WITH 80ML OF URINE OUTPUT FOR 4 HOURS , WITH CLOUDY YELLOW URINE WITH SEDIMENTS , S/P LASIX IVP @ 12/09 , NO IVF , ON GT FEEDING OF FIBERSOURCE @ 25ML/HR NOTED WITH HIGH RESIDUALS , LEVOPHED @ 6MCG/MIN AND PROPOFOL @ 40MCG/MIN INFUSING WELL , MD AWARE . ORDERED IVF OF NS @ 100ML/HR . ORDERS CARRIED OUT ,
[2016-12-10] MEDS: IV NS 0.9% 1,000 ML IV PRN ×2 (10:28→22:29)
--- NOTE | 2016-12-10 12:02 | NUR ---
TAX COLLECTION COORDINATOR NOTES DR LOVELACE AT BEDSIDE TOLERATING CURRENT SETTINGS WITH NO SIGNS OF DISTRESS SPO2 OF 100% , NOTIFIED ABG RESULT , ON LEVOPHED @ 6MCG/MIN TO KEEP SBP 90'S , WITH POSITIONAL TRACH LEAK , CVP OF 15 , MD AWARE
[2016-12-10 16:31] LABS: BILIRUBIN,URINE NEGATIVE (NEGATIVE); BLOOD, URINE TRACE-INTA Ery/uL (NEGATIVE); COLOR,URINE YELLOW (YELLOW); CREATININE, URINE 97.5 MG/DL (30.0-125.0); KETONES,URINE NEGATIVE (NEGATIVE); LEUKOCYTE ESTERASE ,URINE NEGATIVE (NEGATIVE); NITRITE, URINE NEGATIVE (NEGATIVE); PROTEIN,URINE 1+ mg/dl (NEGATIVE); UGLUCOSE NEGATIVE (NEGATIVE); URINE TOTAL PROTEIN 118.6 mg/dL (0-11.9); UROBILINOGEN,URINE 0.2 EU/dL (0.2)
[2016-12-10 16:36] LABS: APPEARANCE,URINE SLIGHTLY CLOUDY (CLEAR)
[2016-12-10] MEDS: LACTOBACILLUS RHAMNOSUS GG 1 EACH CAP.SPRINK GT SCH (16:47)
[2016-12-10] MEDS: NOREPINEPHRINE 16 MG in IV D5W 500 ML IV PRN (16:49)
[2016-12-10 16:57] LABS: BACTERIA,URINE 1+ /HPF (None Seen); COARSE GRANULAR CASTS,URINE Few /LPF (None Seen); SQUAMOUS EPITHELIAL CELL,UR 0-2 /HPF (None Seen); URINE AMORPHOUS URATE Many /HPF (None Seen); WBC,URINE 0-2 /HPF (0-3)
[2016-12-10 17:17] LABS: EOSINOPHIL,URINE Rare
--- NOTE | 2016-12-10 19:44 | NUR ---
PRESCHOOL PROGRAM DIRECTOR NOTES RECEIVED PT IN BED, SEDATED ON DIP AT 40 MCG/KG/MIN. TELE READS SR AT 80 BPM WITH PACs. CVP MONITORING, CURRENTLY AT 11. ON VENT VIA SHILEY 8 TRACH, AC 26 TV 450 FIO2 65% PEEP 10. GT IN PLACE, RUNNING FIBERSOUCE AT A DECREASED RATE OF 25 ML/HR DUE TO INCREASED RESIDUAL DURING AM SHIFT. CURRENTLY 80 M OF RESIDUAL. PARRA CATH IN PLACE, DRAINING WELL TO CLEAR YELLOW URINE. MARIANNE PICC RUNNING NS AT 100 ML/HR AND LEVO AT 4 MCG/MIN. HOB ELEVATED, SIDE RAILS X3, TURNED AND REPOSITIONED, ON [employer] MATTRESS.
[2016-12-10] MEDS ORDERED: VANCOMYCIN 0.75 GM in IV D5W 250 ML IV SCH (21:00)
[2016-12-10] MEDS: LINEZOLID RTU BAG 600 MG in PREMIX 1 EA IV SCH (21:19)
[2016-12-10] MEDS: AMIODARONE HCL 200 MG TABLET PO SCH (21:20)
[2016-12-11] VITALS (97 sets, daily range): BP systolic 60–151; BP diastolic 28–73
[2016-12-11] MEDS: PROPOFOL 100 ML IV PRN ×6 (02:18→23:20)
[2016-12-11 04:31] LABS: EOSINOPHILS % (AUTO) 13.1 % (0.0-6.0); HEMATOCRIT 25 % (39-51); HEMOGLOBIN 8.3 g/dL (13.5-17.5); LYMPHOCYTES # (AUTO) 0.8 /CMM (0.8-4.8); LYMPHOCYTES % (AUTO) 5.3 % (20.0-44.0); MEAN CORPUSCULAR HEMOGLOBIN 28 PG (26.0-33.0); MEAN CORPUSCULAR HGB CONC 33 g/dl (31.0-36.0); MEAN CORPUSCULAR VOLUME 83 fL (80-96); MONOCYTES # (AUTO) 0.4 /CMM (0.1-1.30); MONOCYTES % (AUTO) 2.6 % (2.0-12.0); NEUTROPHILS # (AUTO) 12.3 /CMM (1.8-8.9); PLATELET COUNT (AUTO) 313 /CMM (150-450); RDW COEFFICIENT OF VARIATION 15.3 (11.5-15.0); RED BLOOD CELL COUNT(AUTO) 2.98 MIL/uL (4.5-6.0); WHITE BLOOD COUNT (AUTO) 15.6 K/uL (4.3-11.0)
[2016-12-11 04:44] LABS: CALCIUM, SERUM 7.9 mg/dL (8.5-10.1); CREATININE 3.2 mg/dL (0.6-1.3); POTASSIUM 4.2 mmol/L (3.5-5.1)
[2016-12-11] MEDS ORDERED: IV SET PRIMARY PUMP SET 1 EA INFUS.SET MC ONE (04:56)
[2016-12-11] MEDS: MEROPENEM 500 MG in IV NS 0.9% 50 ML IV SCH ×2 (05:20→22:12)
[2016-12-11 05:53] LABS: EOSINOPHILS % (MANUAL) 9 % (0-4); LYMPHOCYTES % (MANUAL) 8 % (16-48); MONOCYTES % (MANUAL) 3 % (0-11.0); NEUTROPHILS % (MANUAL) 80 (42-76)
[2016-12-11] MEDS: FIBERSOURCE HN 1,000 ML BOTTLE GT PRN (07:26)
--- NOTE | 2016-12-11 07:34 | NUR ---
TECHNICAL EXPERT RECEIVED PATIENT FROM THE PREVIOUS SHIFT. PATIENT IS IN BED. NO ACUTE DISTRESS. SEDATED ON DIPRIVAN 50 MCG/KG/MIN. AFEBRILE. SINUS RHYTHM ON MONITOR. ON LEVOPHED FOR BP MANAGEMENT. VENT SETTINGS REVIEWED AND VERIFIED. PARRA CATH DRAINING TO GRAVITY. TURNED AND REPOSITIONED FOR COMFORT AND WOUND PREVENTION. WILL CONTINUE TO MONITOR AND PROVIDE CARE.
[2016-12-11 08:22] LABS: ABG BASE EXCESS -2.3 mmol/L; ABG PCO2 50.5 mmHg (35.0-45.0); ABG PH 7.299 (7.350-7.450); ABG PO2 90.4 mmHg (75.0-100.0); COHb 0.7 % (0.5-1.5); O2Hb 93.4 % (94.0-97.0); PEEP,BG 10 cm H2O; SITE, ABG Right Radial
[2016-12-11] MEDS ORDERED: IV NS 0.9% 500 ML IV ONE (08:24)
[2016-12-11] MEDS: LINEZOLID RTU BAG 600 MG in PREMIX 1 EA IV SCH ×2 (08:28→22:12)
[2016-12-11] MEDS: Z GUARD REMEDY 2 OZ OINT TP PRN (08:29)
[2016-12-11] MEDS: LACTOBACILLUS RHAMNOSUS GG 1 EACH CAP.SPRINK GT SCH ×2 (08:29→17:53)
[2016-12-11] MEDS: ASPIRIN 325 MG TABLET PO SCH (08:29)
[2016-12-11] MEDS: PANTOPRAZOLE 40 MG VIAL IV SCH (08:29)
[2016-12-11] MEDS: DOCUSATE SODIUM LIQ 100 MG/10 ML UDC PO SCH (08:29)
[2016-12-11] MEDS: AMIODARONE HCL 200 MG TABLET PO SCH ×2 (08:29→22:13)
[2016-12-11] MEDS: BACITRACIN ZINC OINT (15 GM) 15 GM TUBE TP SCH (08:34)
[2016-12-11] MEDS: HYDROGEN PEROXIDE 480 ML BOTTLE TP SCH (08:34)
--- NOTE | 2016-12-11 08:37 | NUR ---
RT PER DR LOVELACE POST ABG RESULTS VT INCREASED TO 500, FIO2 TITRATED TO 80% Addendum: 12/11/16 at 0838 by ANNA CHENG RT Amended: Links added.
--- NOTE | 2016-12-11 08:59 | NUR ---
VT BACK TO [address] LOVELACE Addendum: 12/11/16 at 0859 by ANNA CHENG RT Amended: Links added.
[2016-12-11] MEDS: IV NS 0.9% 1,000 ML IV PRN ×2 (12:19→20:59)
[2016-12-11 13:19] LABS: APPEARANCE,URINE SL CLOUDY (CLEAR); BILIRUBIN,URINE NEGATIVE (NEGATIVE); BLOOD, URINE NEGATIVE Ery/uL (NEGATIVE); COLOR,URINE YELLOW (YELLOW); KETONES,URINE NEGATIVE (NEGATIVE); LEUKOCYTE ESTERASE ,URINE NEGATIVE (NEGATIVE); NITRITE, URINE NEGATIVE (NEGATIVE); PROTEIN,URINE 1+ mg/dl (NEGATIVE); UGLUCOSE NEGATIVE (NEGATIVE); UROBILINOGEN,URINE 0.2 EU/dL (0.2)
[2016-12-11 13:36] LABS: CREATININE, URINE 70.9 MG/DL (30.0-125.0); URINE TOTAL PROTEIN 95.3 mg/dL (0-11.9)
[2016-12-11 13:41] LABS: BACTERIA,URINE Rare /HPF (None Seen); RBC,URINE 0-2 /HPF (0-2); SQUAMOUS EPITHELIAL CELL,UR Rare /HPF (None Seen); URINE AMORPHOUS URATE Few /HPF (None Seen); WBC,URINE 0-2 /HPF (0-3)
[2016-12-11 13:43] LABS: CALCIUM OXALATE CRYSTALS,UR Rare /HPF (None Seen)
[2016-12-11 15:05] LABS: EOSINOPHIL,URINE None Seen
[2016-12-11 15:14] LABS: *BACT BETA STREP (GROUP B) AG Negative (Negative); *BACT NEISSERIA MENING. AG Negative (Negative); *BACT STREP PNEUMONIAE AG Negative (Negative)
[2016-12-11] MEDS ORDERED: FIBERSOURCE HN 1,000 ML BOTTLE GT PRN (16:01)
[2016-12-11] MEDS: NOREPINEPHRINE 16 MG in IV D5W 500 ML IV PRN (17:54)
--- NOTE | 2016-12-11 18:07 | NUR ---
END OF SHIFT SUMMARY: PATIENT REMAINS TRACHED ON [facility] VENT WITH SETTINGS SET PER MD JENNIFER SCHILLING. VENT ALARMS CHECKED + AUDIBLE. CUFF PRESSURE CHECKED INDUCTION HEATING EQUIPMENT SETTER. TRACH SECURE AND IN PROPER POSITION. VENT PLUGGED INTO RED OUTLET. B/S DIM COARSE. SX'D WITH SM/MD LUBINT PALE SEMITHICK SECRETIONS. PATIENT APPEARS COMFORTABLE AND IN NO DISTRESS AT THIS TIME. AMBU BAG AT HOB. CONT CURRENT PLAN OF RESP CARE. Addendum: 12/11/16 at 1808 by ANNA CHENG RT Amended: Links added.
--- NOTE | 2016-12-11 20:12 | NUR ---
[employer] POLICE LAUNCH COMMANDER. INITIAL ASSESSMENT. RECEIVED THE PT RTEST ON THE BED. TRACH TO VENT CONNECTED. SHILEY#8, AC 26,TV 450,FIO2 80%, PEEP 10. SAT 96%. GAME TRAPPER SHOWING NSR. IV RT UPPER ARM PICC LINE IVF NS 100ML/H, DIPRIVAN 50MCG/KG/MIN, LEVOPHED 20MCG/MIN. GT FEEDING RUNNING. FIBER SOURCE 25ML/H HOB ELEVATED. FC PATENT. TURN AND REPOSITION Q2H. WILL CONTINUE TO MONITOR VITALS.
--- NOTE | 2016-12-11 20:52 | NUR ---
PT RECEIVED TRACH ON VENT. PT TOLERATING VENT SETTINGS. SX'D FOR MOD AMT OF THICK SECRETIONS. VENT ALARMS SET AND AUDIBLE. AMBU BAG AT HOB. INCREASED FIO2 TO 80% DO TO LOW O2 SAT. RN NOTIFIED. VENT PLUGGED INTO RED OUTLET. WILL CONTINUE TO MONITOR. Addendum: 12/11/16 at 2054 by LIZ QUIÑONES RT Amended: Links added.
[2016-12-11] MEDS: MORPHINE SULFATE INJ 2 MG/ML DISP.SYRIN IV PRN (20:58)
[2016-12-12] VITALS (75 sets, daily range): BP systolic 88–148; BP diastolic 29–60
[2016-12-12] MEDS: PROPOFOL 100 ML IV PRN ×6 (02:40→22:47)
--- NOTE | 2016-12-12 04:38 | NUR ---
ISO COORDINATOR. AM CARE. ORAL CARE, BED BATH GIVEN. LINEN CHANGED, REMAINING SAME VENT SETTING TOLERATED WELL. SA 98%. CAGE/VAULT SUPERVISOR SHOWING NSR, LAST NIGHT COUPLE OF TIME SHORT RUNNING AFIBIV RT UPPER ARM PICC LINE. IVF NS 100ML/H, LEVOPHED 30MCH.KG.MIN,DIPRIVAN 50MCG/KG/MIN. GT INTACT, FEEDING NOT TOLERATED WELL. PT IS NPO FROM 0400. HOB ELEVATED. PT IS NPO. FC PATENT. TURN AND REPOSITION Q2H, WILL CONTINUE TO MONITOR VITALS. TURN AND REPOSITION Q2H,
[2016-12-12 04:50] LABS: BASOPHILS % (AUTO) 0.1 % (0.0-2.0); EOSINOPHILS # (AUTO) 2.3 /CMM (0.0-0.7); EOSINOPHILS % (AUTO) 12.2 % (0.0-6.0); HEMATOCRIT 28 % (39-51); HEMOGLOBIN 9.1 g/dL (13.5-17.5); LYMPHOCYTES # (AUTO) 1.4 /CMM (0.8-4.8); LYMPHOCYTES % (AUTO) 7.5 % (20.0-44.0); MEAN CORPUSCULAR HEMOGLOBIN 27 PG (26.0-33.0); MEAN CORPUSCULAR HGB CONC 32 g/dl (31.0-36.0); MEAN CORPUSCULAR VOLUME 85 fL (80-96); MONOCYTES # (AUTO) 0.6 /CMM (0.1-1.30); MONOCYTES % (AUTO) 3.2 % (2.0-12.0); NEUTROPHILS # (AUTO) 14.7 /CMM (1.8-8.9); PLATELET COUNT (AUTO) 371 /CMM (150-450); RDW COEFFICIENT OF VARIATION 15.9 (11.5-15.0); RED BLOOD CELL COUNT(AUTO) 3.31 MIL/uL (4.5-6.0); WHITE BLOOD COUNT (AUTO) 19.1 K/uL (4.3-11.0)
[2016-12-12] MEDS: NOREPINEPHRINE 16 MG in IV D5W 500 ML IV PRN ×2 (04:50→17:57)
[2016-12-12 05:07] LABS: CALCIUM, SERUM 7.9 mg/dL (8.5-10.1); CREATININE 4.1 mg/dL (0.6-1.3); MAGNESIUM 2.4 mg/dL (1.8-2.4); POTASSIUM 4.8 mmol/L (3.5-5.1)
[2016-12-12 05:15] LABS: PHOSPHORUS 8.8 mg/dL (2.5-4.9)
[2016-12-12 05:45] LABS: BAND % (MANUAL) 2 % (0.0-5.0); EOSINOPHILS % (MANUAL) 20 % (0-4); LYMPHOCYTES % (MANUAL) 4 % (16-48); MONOCYTES % (MANUAL) 9 % (0-11.0); NEUTROPHILS % (MANUAL) 65 (42-76)
--- NOTE | 2016-12-12 08:00 | NUR ---
IN STORE BANKER NOTES: RECEIVED PATIENT SEDATED , RESPONSIVE TO PAIN STIMULI , OPENS EYES, NOT IN ACUTE DISTRESS , RESPIRATIONS EVEN AND UNLABORED WITH SPO2 OF 100% VIA MECHANICAL VENTILATOR SETTING ORDERED , SHILEY # [address] NOTED WITH POSITIONAL AIR LEAK- DR. COCHRAN TO CHANGE TRACH TO SHILEY 8XLT TODAY , DRESSING IN PLACE, PATIENT SUCTIONED, ORAL CARE PROVIDED, SR 84 ON BEDSIDE MONITOR ,GT PATENT AND INTACT , GT FEEDING OF FIBERSOURCE @ 25ML/HR RESUMED, PATIENT NOTED WITH DISTENDED ABDOMEN. FC DRAINING TO GRAVITY MARIANNE PICC LINE WITH NS @ 100ML/HR , DIPRIVAN @ 50MCG/MIN , LEVOPHED @ 30MCG/MIN WILL TITRATE DRIPS PER PROTOCOL. ALL NEEDS ATTENDED TO, PATIENT TURNED AND REPOSITIONED. , BED ON LOW AND LOCKED POSITION , SIDE RAILS X2 ,CALL LIGHT WITHIN REACH, WILL CONTINUE TO MONITOR
[2016-12-12] MEDS: LINEZOLID RTU BAG 600 MG in PREMIX 1 EA IV SCH ×2 (08:44→21:30)
[2016-12-12] MEDS: MEROPENEM 500 MG in IV NS 0.9% 50 ML IV SCH ×2 (08:44→21:30)
[2016-12-12] MEDS: PANTOPRAZOLE 40 MG VIAL IV SCH (08:44)
[2016-12-12] MEDS: BACITRACIN ZINC OINT (15 GM) 15 GM TUBE TP SCH (08:46)
[2016-12-12] MEDS: HYDROGEN PEROXIDE 480 ML BOTTLE TP SCH (08:46)
[2016-12-12] MEDS: Z GUARD REMEDY 2 OZ OINT TP PRN (08:46)
[2016-12-12 09:05] LABS: ABG BASE EXCESS -9.2 mmol/L; ABG OXYGEN SATURATION 93.7 % (92.0-98.5); ABG PCO2 56.4 mmHg (35.0-45.0); ABG PH 7.154 (7.350-7.450); ABG PO2 83.3 mmHg (75.0-100.0); AaDO2 427.9 mmHg; COHb 0.9 % (0.5-1.5); MetHb 0.8 % (0.0-1.5); O2Hb 92.1 % (94.0-97.0); PEEP,BG 10 cm H2O; SITE, ABG Right Radial; VT, ABG 450 mL
[2016-12-12] MEDS: AMIODARONE HCL 200 MG TABLET PO SCH ×2 (09:23→21:30)
[2016-12-12] MEDS: ASPIRIN 325 MG TABLET PO SCH (09:23)
[2016-12-12] MEDS: DOCUSATE SODIUM LIQ 100 MG/10 ML UDC PO SCH (09:23)
[2016-12-12] MEDS: LACTOBACILLUS RHAMNOSUS GG 1 EACH CAP.SPRINK GT SCH ×2 (09:23→16:11)
[2016-12-12] MEDS: FUROSEMIDE 100 MG/10 ML VIAL IV SCH ×2 (12:13→16:10)
[2016-12-12 12:18] LABS: ABG OXYGEN SATURATION 94.9 % (92.0-98.5); ABG PCO2 54.4 mmHg (35.0-45.0); ABG PH 7.218 (7.350-7.450); AaDO2 427.3 mmHg; COHb 1.3 % (0.5-1.5); MetHb 0.9 % (0.0-1.5); O2Hb 92.8 % (94.0-97.0); PEEP,BG 10 cm H2O; SITE, ABG Right Radial; VT, ABG 500 mL
--- NOTE | 2016-12-12 12:30 | NUR ---
CHIEF ENGINEERING DIVISION NOTE: DR. COCHRAN AT BEDSIDE, TRACH CHANGED, SHILEY 8 REMOVED AND SHILEY 8XLT PLACED. NO AIR LEAK NOTED AT THIS TIME. PATIENT SUCTIONED. ONGOING MONITORING
[2016-12-12] MEDS: SEVELAMER CARBONATE 0.8 GM POWD.PACK GT SCH ×2 (13:21→17:37)
[2016-12-12] MEDS ORDERED: IV SET PRIMARY PUMP SET 1 EA INFUS.SET MC ONE (13:51)
[2016-12-12] MEDS ORDERED: Sodium Bicarbonate 100 MEQ in IV D5 / 0.2% NACL 1,000 ML IV PRN (15:30)
[2016-12-12] MEDS: RENAL NOVASOURCE 1,000 ML BOTTLE GT PRN (15:52)
[2016-12-12] MEDS ORDERED: IV NS 0.9% 500 ML IV ONE (17:44)
--- NOTE | 2016-12-12 18:59 | NUR ---
MANAGER DRIVE NOTE: PATIENT IN BED, SR ON TELE MONITOR NOTED WITH TRACH SHILEY 8XLT AC 26 TV 500 FIO2 80% PEEP OF 10, WITH MRAIANNE PICC ON DIPRIVAN AT 35MCG/KG/MIN AND LEVO AT 12MCG/MIN, PATIENT ON BICARB DRIP AT 50ML/HR PER ORDER. NO BM NOTED. FIDEL NOTED WITH 200ML OF UOP, MD AWARE OF LOW UOP. CVP MONITORING 17-18. 2 DOSES OF LASIX ADMINISTERED PER ORDER. PATIENT KEPT CLEAN AND DRY TURNED AND REPOSITIONED AND EXTREMITIES OFFLOADED. SAFETY MAINTAINED. WILL ENDORSE FOR CONTINUITY OF CARE.
--- NOTE | 2016-12-12 20:34 | NUR ---
PT RECEIVED JASS GU 8XLT ON VENT. PT TOLERATING VENT SETTINGS. SX'D FOR MOD AMT OF THICK SECRETIONS. VENT ALARMS SET AND AUDIBLE. JOE JACKSON AT [facility]. WILL CONTINUE TO MONITOR. Addendum: 12/12/16 at 2033 by LIZ QUIÑONES RT Amended: Links added.
--- NOTE | 2016-12-12 23:05 | NUR ---
PT DESATURATED TO 70'S, PEAK PRESSURE INTO 90'S. CHANGED VENT SETTINGS TO PRESSURE CONTROL. PEAK PRESSURE WENT DOWN TO 60'S SPO2 WENT UP TO 97%. RN DANYA AWARE. CALLED DR MATHIS FOR VENT CHANGES AND SAID OK TO PRESSURE CONTROL. PT IS NOW PC OF 50, RATE OF 26, FIO2 OF 90% AND PEEP OF 10. WILL CONTINUE TO MONITOR.
--- NOTE | 2016-12-12 23:10 | NUR ---
TENTERING MACHINE OFF BEARER DESATURATION PT DESATURATED TO 70'S, PEAK PRESSURE INTO 90'S. CHANGED VENT SETTINGS TO PRESSURE CONTROL BY RT; VENT SETTINGS PC OF 50, RATE OF 26, FIO2 OF 90% +10. WILL CONTINUE TO MONITOR.
[2016-12-13] VITALS (102 sets, daily range): BP systolic 86–132; BP diastolic 27–70
[2016-12-13] MEDS ORDERED: IV SET PRIMARY PUMP SET 1 EA INFUS.SET MC ONE ×5 (02:43→18:31)
[2016-12-13] MEDS: PROPOFOL 100 ML IV PRN ×6 (02:50→23:16)
[2016-12-13 04:55] LABS: HEMATOCRIT 25 % (39-51); HEMOGLOBIN 8.5 g/dL (13.5-17.5); MEAN CORPUSCULAR HEMOGLOBIN 28 PG (26.0-33.0); MEAN CORPUSCULAR HGB CONC 34 g/dl (31.0-36.0); MEAN CORPUSCULAR VOLUME 84 fL (80-96); PLATELET COUNT (AUTO) 318 /CMM (150-450); RDW COEFFICIENT OF VARIATION 16.2 (11.5-15.0); RED BLOOD CELL COUNT(AUTO) 3.02 MIL/uL (4.5-6.0); WHITE BLOOD COUNT (AUTO) 17.3 K/uL (4.3-11.0)
[2016-12-13 05:08] LABS: CALCIUM, SERUM 7.1 mg/dL (8.5-10.1); CREATININE 4.7 mg/dL (0.6-1.3); POTASSIUM 5.3 mmol/L (3.5-5.1)
[2016-12-13 05:27] LABS: PHOSPHORUS 9.3 mg/dL (2.5-4.9)
[2016-12-13 05:31] LABS: EOSINOPHILS % (MANUAL) 14 % (0-4); LYMPHOCYTES % (MANUAL) 10 % (16-48); MONOCYTES % (MANUAL) 7 % (0-11.0); NEUTROPHILS % (MANUAL) 69 (42-76)
[2016-12-13 07:35] LABS: ABG BASE EXCESS -7.5 mmol/L; ABG OXYGEN SATURATION 91.6 % (92.0-98.5); ABG PCO2 80.2 mmHg (35.0-45.0); ABG PH 7.075 (7.350-7.450); AaDO2 482.5 mmHg; COHb 1.1 % (0.5-1.5); O2Hb 89.7 % (94.0-97.0); PEEP,BG 10 cm H2O; SITE, ABG Right Radial; VENT MODE, BG AC/PC INSP PAP 50
[2016-12-13] MEDS ORDERED: SODIUM BICARBONATE SYR 50 MEQ/50 ML DISP.SYRIN IV ONE ×3 (08:30→18:00)
--- NOTE | 2016-12-13 08:30 | NUR ---
PATIENT REC'D TRACHED ON [facility] VENT WITH SETTINGS SET PER MD JENNIFER SCHILLING. VENT ALARMS CHECKED + AUDIBLE. CUFF PRESSURE CHECKED MASSAGE THERAPIST. TRACH SECURE AND IN PROPER POSITION. VENT PLUGGED INTO RED OUTLET. B/S DIM COARSE. SX'D WITH SM/MD ALAMO PALE SEMITHICK SECRETIONS. PATIENT IN CRITICAL CONDITION. AMBU BAG AT [facility]. CONT CURRENT PLAN OF RESP CARE. Addendum: 12/13/16 at 1024 by ANNA CHENG RT Amended: Links added.
[2016-12-13 08:41] LABS: CALCIUM, SERUM 7.7 mg/dL (8.5-10.1); CREATININE 4.9 mg/dL (0.6-1.3); POTASSIUM 5.7 mmol/L (3.5-5.1)
[2016-12-13] MEDS: MEROPENEM 500 MG in IV NS 0.9% 50 ML IV SCH ×2 (08:42→22:04)
[2016-12-13] MEDS: HYDROGEN PEROXIDE 480 ML BOTTLE TP SCH (08:42)
[2016-12-13] MEDS: PANTOPRAZOLE 40 MG VIAL IV SCH (08:44)
[2016-12-13] MEDS: DOCUSATE SODIUM LIQ 100 MG/10 ML UDC PO SCH (08:44)
[2016-12-13] MEDS: ASPIRIN 325 MG TABLET PO SCH (08:44)
[2016-12-13] MEDS: LACTOBACILLUS RHAMNOSUS GG 1 EACH CAP.SPRINK GT SCH ×2 (08:44→17:06)
[2016-12-13] MEDS: BACITRACIN ZINC OINT (15 GM) 15 GM TUBE TP SCH (08:46)
[2016-12-13] MEDS: AMIODARONE HCL 200 MG TABLET PO SCH ×2 (08:46→09:33)
[2016-12-13] MEDS ORDERED: BUMETANIDE INJ 4 MG in IV NS 0.9% 24 ML IV ONE (09:00)
[2016-12-13] MEDS: METOLAZONE 2.5 MG TABLET PO SCH ×2 (09:00→09:38)
[2016-12-13] MEDS ORDERED: SODIUM POLYSTYRENE SULFONATE 15 G/60 ML BOTTLE PO ONE (09:30)
[2016-12-13] MEDS ORDERED: METOLAZONE 2.5 MG TABLET PO ONE (09:30)
[2016-12-13] MEDS: LINEZOLID RTU BAG 600 MG in PREMIX 1 EA IV SCH ×2 (09:30→22:04)
[2016-12-13] MEDS: Sodium Bicarbonate 150 MEQ in IV D5 / 0.2% NACL 1,000 ML IV PRN (09:33)
[2016-12-13 09:50] LABS: ABG OXYGEN SATURATION 93.2 % (92.0-98.5); ABG PCO2 82.4 mmHg (35.0-45.0); ABG PH 7.088 (7.350-7.450); ABG PO2 82.5 mmHg (75.0-100.0); AaDO2 548.1 mmHg; COHb 1.3 % (0.5-1.5); MetHb 1.1 % (0.0-1.5); SITE, ABG Right Radial
[2016-12-13] MEDS ORDERED: SODIUM POLYSTYRENE SULFONATE 15 G/60 ML BOTTLE GT ONE (10:30)
--- NOTE | 2016-12-13 10:50 | NUR ---
DATA QUALITY CONSULTANT NOTE 0720: Received patient sedated, with Diprivan @ 35mcg for ARDS. With trache to vent, ABG done, made Dr. Wilson aware, awaiting call back. With GT intqact, feeding tolerated at this time, no residuals. Kept HOB elevated. With MARIANNE PICC intact, on CVP reading 15. On Diprivan, Levo @ 14mcg, and IVF with 2 amps Sodium Bicarb @ 50. With Mesa cath intact, noted with minimal yellow urine drained to BSD. 0740: S/E by Dr. Dolan, with order for stat repeat BMP. Dr. Dolan said no HD for now, she ordered Bumex and DC Lasix, also added Zaroxylin. aware for Phis 9.3, on Renvela. Spoke with Dr. Wilson, spoke with RT and ordered vent adjustments. and will do repeat ABG in [address] Wilson ordered 2 amps Bicarb IVP and change IVF to D5 1/4NS with 3 amps Na Bicarb @ 80, carried out. 0830: S/E by Dr. Wilson, with son at bedside, spoke with son and made family aware re: poor prognosis. 0900: S/E by Dr. Tavera, said to give Amio PO, aware for low BP. Also ordered Kayexalate for K 5.7. 1050: No any significant changes noted at this time. Family at bedside aware for the POC. Kept clean,w arm and dry. turned q2. Vent settings at this time, AC 30, PC 60, FIO2 100%, PEEP 5. LEvo @ 14mcg, Diprivan@ 35. Will continue to monitor.
[2016-12-13] MEDS: NOREPINEPHRINE 16 MG in IV D5W 500 ML IV PRN ×2 (11:11→17:56)
[2016-12-13] MEDS: SEVELAMER CARBONATE 0.8 GM POWD.PACK GT SCH ×2 (12:53→17:06)
[2016-12-13 12:57] LABS: ABG BASE EXCESS -4.8 mmol/L; ABG OXYGEN SATURATION 91.6 % (92.0-98.5); ABG PCO2 90.1 mmHg (35.0-45.0); ABG PH 7.078 (7.350-7.450); ABG PO2 77.9 mmHg (75.0-100.0); MetHb 1.1 % (0.0-1.5); O2Hb 89.7 % (94.0-97.0); SITE, ABG Right Radial
--- NOTE | 2016-12-13 13:51 | NUR ---
SLUDGE FILTRATION OPERATOR NOTE Spoke with Dr. Dolan via phone and clarified Kayexalate order to DC, already given 60gm. Dr. Wilson aware for the ABG, given order for 2 amps Na Bicarb and another ABG in 2 hours, RT aware.
[2016-12-13 15:22] LABS: ABG BASE EXCESS -5.6 mmol/L; ABG OXYGEN SATURATION 93.6 % (92.0-98.5); ABG PCO2 82.8 mmHg (35.0-45.0); ABG PH 7.092 (7.350-7.450); ABG PO2 86.6 mmHg (75.0-100.0); AaDO2 543.6 mmHg; COHb 0.8 % (0.5-1.5); MetHb 1.1 % (0.0-1.5); O2Hb 91.8 % (94.0-97.0); SITE, ABG Right Radial
--- NOTE | 2016-12-13 15:35 | NUR ---
SHREDDED FILLER MACHINE WRAPPER LAYER NOTR Repeat ABG done, made Dr. Wilson aware, with order of DC PEEP, increase pressure control 65 and ABG in 2 hours, will inform MD if pH <7.2, made RT aware.
[2016-12-13] MEDS ORDERED: SECONDARY IV SET 1 EA INFUS.SET MC ONE (15:37)
[2016-12-13] MEDS: RENAL NOVASOURCE 1,000 ML BOTTLE GT PRN (17:06)
[2016-12-13 17:56] LABS: ABG BASE EXCESS -2.4 mmol/L; ABG PCO2 86.9 mmHg (35.0-45.0); ABG PH 7.121 (7.350-7.450); ABG PO2 82.4 mmHg (75.0-100.0); AaDO2 543.7 mmHg; COHb 1.4 % (0.5-1.5); MetHb 1.1 % (0.0-1.5); O2Hb 90.7 % (94.0-97.0); PEEP,BG 0 cm H2O; SITE, ABG Right Radial; VENT MODE, BG PC 65
--- NOTE | 2016-12-13 18:16 | NUR ---
RECRUITING SCHEDULER NOTE Dr. Wilson aware for the 1730 ABG, with order of 2 amps IVP, given as ordered.
--- NOTE | 2016-12-13 18:25 | NUR ---
DENTAL LABORATORY ASSISTANT NOTE Noted patient with Afib up to 140's, informed Kain Tavera, with order of Amio 150 load then drip and hold Amio /GT, carried out and followed up with pharmacy.
[2016-12-13] MEDS: AMIODARONE 900 MG in IV D5W 482 ML IV PRN (18:56)
[2016-12-13] MEDS ORDERED: AMIODARONE 150 MG in IV D5W 100 ML IV ONE (19:00)
--- NOTE | 2016-12-13 19:50 | NUR ---
PT RECEIVED ON TRACH SHILEY XLT SZ 8. NO RESP DISTRESS. PT TOLERATING VENT SETTINGS CHARTED. SYSTEM DEVELOPER ASSOCIATE MANAGER CUFF PRESSURE NOTED SX'D MOD AMT OF THICK YELLOW SECRETIONS. VENT ALARMS SET AND AUDIBLE. AMBU BAG AT [facility]. VENT PLUGGED INTO RED OUTLET. WILL CONTINUE TO MONITOR. Addendum: 12/13/16 at 2004 by FABIAN RUIZ RT Amended: Links added.
--- NOTE | 2016-12-13 19:59 | NUR ---
DRAW HAND. INITIAL ASSESSMENT. RECEIVED THE PT REST ON THE BED. TRACH TO VENT CONNECTED. SHILEY XLT 8. AC 26,PRESSURE SUPPORT 65, FIO2 100%. SAT 95%. STOCK HANDLER FLOORPERSON SHOWING NSR. IV RT UPPER ARM PICC LINE LEVOPHED 10MCG/MIN,DIPRIVAN 35MCG/KG/MIN,D51/4NS 3AMP BICARB 80ML/H. AMIODARONE 1MG/MIN. FC PATENT. HOB ELEVATED. NOVA SOURCE 35ML/H. TURN AND REPOSITION Q2H. WILL CONTINUE TO ONITOR VITALS.
[2016-12-14] VITALS (92 sets, daily range): BP systolic 90–130; BP diastolic 6–71
--- NOTE | 2016-12-14 03:21 | NUR ---
AERONAUTICAL ENGINEERING PROFESSOR. AM CARE, ORAL CARE, BED BATH GIVEN. LINEN CHANGED. REMAINING SAME VENT SETTING TOLERATED WELL. SAT 98%. DIE KEEPER SHOWING NSR. IV RT UPPER ARM PICC LINE. IVF D5W1/4NS 3AMP BICARB 80 ML/H. DIPRIVAN 35MCG/KG/MIN,LEVOPHED 20MCG/MIN. FC PATENT. TURN AND REPOSITION Q2H. WILL CONTINUE TO MONITOR VITALS.
[2016-12-14] MEDS: PROPOFOL 100 ML IV PRN ×4 (04:08→19:46)
[2016-12-14 04:53] LABS: HEMATOCRIT 26 % (39-51); HEMOGLOBIN 8.5 g/dL (13.5-17.5); MEAN CORPUSCULAR HEMOGLOBIN 27 PG (26.0-33.0); MEAN CORPUSCULAR HGB CONC 33 g/dl (31.0-36.0); MEAN CORPUSCULAR VOLUME 83 fL (80-96); PLATELET COUNT (AUTO) 402 /CMM (150-450); RED BLOOD CELL COUNT(AUTO) 3.09 MIL/uL (4.5-6.0); WHITE BLOOD COUNT (AUTO) 16.5 K/uL (4.3-11.0)
[2016-12-14 05:04] LABS: BILIRUBIN,TOTAL 0.9 mg/dL (0.2-1.0); CALCIUM, SERUM 7.3 mg/dL (8.5-10.1); CREATININE 5.5 mg/dL (0.6-1.3); MAGNESIUM 2.4 mg/dL (1.8-2.4); POTASSIUM 4.9 mmol/L (3.5-5.1)
[2016-12-14 05:10] LABS: INR 0.99 (0.87-1.13); PROTHROMBIN TIME 10.6 SECS (9.5-12.7)
[2016-12-14 05:29] LABS: ALBUMIN 1.1 g/dL (3.4-5.0); PHOSPHORUS 10.4 mg/dL (2.5-4.9)
--- NOTE | 2016-12-14 05:48 | NUR ---
SHEET METAL DUCT WORKER SUPERVISOR. RESIDUAL 200ML. FEEDING HELD. WILL CONTINUE TO MONITOR.
[2016-12-14] MEDS: Sodium Bicarbonate 150 MEQ in IV D5 / 0.2% NACL 1,000 ML IV PRN (07:19)
[2016-12-14] MEDS: NOREPINEPHRINE 16 MG in IV D5W 500 ML IV PRN ×2 (07:21→23:41)
--- NOTE | 2016-12-14 07:50 | NUR ---
Received pt on mechanical vent. Pt has a Intertwine 8 XLT trach. Vent is plugged into a red outlet, alarms are audible, and BVM is at bedside. Addendum: 12/14/16 at 0751 by CHADD GARCIA RT Amended: Links added.
[2016-12-14] MEDS: MEROPENEM 500 MG in IV NS 0.9% 50 ML IV SCH ×2 (08:05→21:14)
[2016-12-14] MEDS: SEVELAMER CARBONATE 0.8 GM POWD.PACK GT SCH ×3 (08:05→17:05)
[2016-12-14] MEDS: DOCUSATE SODIUM LIQ 100 MG/10 ML UDC PO SCH (08:05)
[2016-12-14] MEDS: ASPIRIN 325 MG TABLET PO SCH (08:05)
[2016-12-14] MEDS: METOLAZONE 2.5 MG TABLET PO SCH (08:05)
[2016-12-14] MEDS: PANTOPRAZOLE 40 MG VIAL IV SCH (08:05)
[2016-12-14] MEDS: LACTOBACILLUS RHAMNOSUS GG 1 EACH CAP.SPRINK GT SCH ×2 (08:05→17:00)
[2016-12-14] MEDS: HYDROGEN PEROXIDE 480 ML BOTTLE TP SCH (08:06)
[2016-12-14] MEDS: BACITRACIN ZINC OINT (15 GM) 15 GM TUBE TP SCH (08:06)
[2016-12-14 08:09] LABS: ABG BASE EXCESS 2.4 mmol/L; ABG OXYGEN SATURATION 93.9 % (92.0-98.5); ABG PCO2 105.5 mmHg (35.0-45.0); ABG PH 7.118 (7.350-7.450); AaDO2 521.5 mmHg; COHb 1.5 % (0.5-1.5); MetHb 0.7 % (0.0-1.5); O2Hb 91.8 % (94.0-97.0); SITE, ABG Right Radial; VENT MODE, BG AC/PC 26 65 100%
[2016-12-14] MEDS ORDERED: IV SET PRIMARY PUMP SET 1 EA INFUS.SET MC ONE (09:56)
[2016-12-14] MEDS: LINEZOLID RTU BAG 600 MG in PREMIX 1 EA IV SCH ×2 (10:11→21:14)
--- NOTE | 2016-12-14 10:35 | NUR ---
COLLISION MECHANIC NOTE 0720: Received patient sedated on Diprivan. With trache to vent, no respiratory distress noted at this time. With GT intact, previous nurse held feeding for high residuals. With Mesa cath intact, no UOP noted. SR 60's on the monitor. MARIANNE PICC intact. On Diprivan @ 35 and D5 1/4NS + 3amps bicarb @ 80, Levo @ 18mcg. Vent settings: AC 26 PC 65 FIO2 100%, O2 sat 94%. Noted with abdominal distension. 0840: S/E by Dr. Tavera, said to continue Amio drip even after 24hours. 0900: S/E by Dr. Wilson, with order of CXR stat, KUB Xray and place GT to LIS. Noted with 500mL residuals upon auscultation. 1010: S/E by Dr. Lopez, spoke with family at bedside, aware for the POC.
[2016-12-14 11:24] LABS: ABG BASE EXCESS 0.2 mmol/L; ABG OXYGEN SATURATION 92.3 % (92.0-98.5); ABG PCO2 73.2 mmHg (35.0-45.0); ABG PH 7.213 (7.350-7.450); ABG PO2 74.9 mmHg (75.0-100.0); AaDO2 564.9 mmHg; COHb 1.4 % (0.5-1.5); MetHb 0.9 % (0.0-1.5); O2Hb 90.2 % (94.0-97.0); SITE, ABG Right Radial; VENT MODE, BG PC 28 68 100%
--- NOTE | 2016-12-14 18:42 | NUR ---
IRON CARRIER NOTE 1530: S/E by Dr. Huerta, aware for the KUB Xray and with 500mL gathered from GT residuals. With order of Reglan 5 q6. 1600: S/E by Dr. Bell, made MD aware re: no UOP, MD spoke with family at bedside, no HD for today per , MD told family and verbalized understanding. 1630: Paged Dr. Huerta x2 re: order of Reglan with contraindication for Zyvox, but no call back, made pharmacy aware and told the to call as well. 1840: No any significant changes noted at this time. No BM, no UOP. With trache to vent settings of AC 28 PC 68 FIO2 100%. With MARIANNE PICC intact, on D5 1/4NS with 3 amps Na Bicarb @ 80, Levo @ 12, Diprivan @ 35. GT on LIS, gathered 750mL residuals for the whole shift.
[2016-12-14] MEDS: AMIODARONE 900 MG in IV D5W 482 ML IV PRN (18:59)
--- NOTE | 2016-12-14 19:12 | NUR ---
LAPIDARIST. INITIAL ASSESSMENT. RECEIVED THE PT REST ON THE BED. TRACH TO VENT CONNECTED.PT IS HEMO DYNAMICALLY VERY UNSTABLE. SHILEY XLT 8,AC 28,PRESSURE CONTROL 68, FIO2 100%. SAT 96%STOREKEEPER ENGINEERING SHOWING NSR, IV RT UPPER ARM PICC LINE. IVF D51/4NS 3AMP BICARB 80ML/H , DIPRIVAN 35MCG/KG/MIN AMIODARONE 0.5MG/MIN.GT INTACT. LOW INTERMITTENT SUCTION. FC PATENT. HOB ELEVATED TURN AND REPOSITION Q2H. WILL CONTINUE TO MONITOR VITALS.
--- NOTE | 2016-12-14 19:50 | NUR ---
PT REC'D ON SHILEY 8XLT. NO RESP DISTRESS AT THIS TIME. PT COMFORTABLE ON VENT SETTINGS CHARTED. SX'D MOD THICK YELLOW SECRETIONS. STEMHOLE BORER CUFF PRESSURE NOTED. AMBU BAG BESIDE, VENT PLUGGED INTO RED OUTLET. ALARMS ARE SET AND AUDIBLE WILL CONTINUE TO MONITOR. Addendum: 12/14/16 at 2045 by FABIAN RUIZ RT Amended: Links added.
[2016-12-14] MEDS: METRONIDAZOLE 500MG/ NS 100ML 500 MG in PREMIX 1 EA IV SCH (21:11)
[2016-12-15] VITALS (81 sets, daily range): BP systolic 82–139; BP diastolic 37–68
[2016-12-15] MEDS: PROPOFOL 100 ML IV PRN ×3 (01:07→12:31)
--- NOTE | 2016-12-15 03:13 | NUR ---
MANAGER ENGLISH. AM CARE, IRAL CARE, BED BATH GIVEN. LINEN CHANGED, REMAINING SAME VENT SETTING TOLERATED WELL. SAT 94%. X RAY OPERATOR SHOWING NSR. IV RT UPPER ARM PICC LINE. IVF D51/2BICARB 3AMP 80 ML/H. AMOIDARONE 0.5MG/MIN,DIPRIVAN 35NCG/KG/MIN, LEVOPHED 12MCG/MIN. GT LOW INTERMITTENT SUCTION. FC PATENT. ANURIC. HOB ELEVATED. CVP ZERO CALIBRATED. TURN AND REPOSITION Q2H. WILL CONTINUE TO MONITOR VITALS.
[2016-12-15] MEDS: Sodium Bicarbonate 150 MEQ in IV D5 / 0.2% NACL 1,000 ML IV PRN ×2 (04:21→20:24)
[2016-12-15] MEDS: METRONIDAZOLE 500MG/ NS 100ML 500 MG in PREMIX 1 EA IV SCH ×3 (04:22→21:13)
[2016-12-15 04:55] LABS: HEMATOCRIT 25 % (39-51); HEMOGLOBIN 8.4 g/dL (13.5-17.5); MEAN CORPUSCULAR HEMOGLOBIN 28 PG (26.0-33.0); MEAN CORPUSCULAR HGB CONC 34 g/dl (31.0-36.0); MEAN CORPUSCULAR VOLUME 81 fL (80-96); PLATELET COUNT (AUTO) 356 /CMM (150-450); RDW COEFFICIENT OF VARIATION 15.6 (11.5-15.0); RED BLOOD CELL COUNT(AUTO) 3.02 MIL/uL (4.5-6.0); WHITE BLOOD COUNT (AUTO) 15.5 K/uL (4.3-11.0)
[2016-12-15 05:32] LABS: CALCIUM, SERUM 6.8 mg/dL (8.5-10.1); CREATININE 5.8 mg/dL (0.6-1.3); MAGNESIUM 2.3 mg/dL (1.8-2.4); POTASSIUM 4.7 mmol/L (3.5-5.1)
[2016-12-15 05:38] LABS: PHOSPHORUS 9.7 mg/dL (2.5-4.9)
[2016-12-15] MEDS: SEVELAMER CARBONATE 0.8 GM POWD.PACK GT SCH ×3 (08:00→17:25)
[2016-12-15 08:58] LABS: ABG BASE EXCESS 1.5 mmol/L; ABG OXYGEN SATURATION 89.2 % (92.0-98.5); ABG PH 7.223 (7.350-7.450); COHb 1.4 % (0.5-1.5); O2Hb 87.1 % (94.0-97.0); SITE, ABG Right Radial; VENT MODE, BG PC 28 68 100%
[2016-12-15] MEDS: LACTOBACILLUS RHAMNOSUS GG 1 EACH CAP.SPRINK GT SCH ×2 (09:00→17:00)
[2016-12-15] MEDS ORDERED: AMIODARONE HCL 200 MG TABLET PO SCH (09:00)
[2016-12-15] MEDS: DOCUSATE SODIUM LIQ 100 MG/10 ML UDC PO SCH (09:00)
[2016-12-15] MEDS: METOLAZONE 2.5 MG TABLET PO SCH (09:00)
[2016-12-15] MEDS: ASPIRIN 325 MG TABLET PO SCH (09:00)
[2016-12-15] MEDS ORDERED: IV SET PRIMARY PUMP SET 1 EA INFUS.SET MC ONE ×4 (09:18→21:26)
[2016-12-15] MEDS ORDERED: SECONDARY IV SET 1 EA INFUS.SET MC ONE ×3 (09:19→14:48)
[2016-12-15] MEDS ORDERED: IV NS 0.9% 250 ML IV ONE (09:19)
--- NOTE | 2016-12-15 10:00 | NUR ---
ROSE met with pt's son Alec Perez in regards to him wanting a verification of admission letter for social security office. ROSE completed letter and gave him two copies per his request.
[2016-12-15] MEDS: PANTOPRAZOLE 40 MG VIAL IV SCH (10:21)
[2016-12-15] MEDS: MEROPENEM 500 MG in IV NS 0.9% 50 ML IV SCH ×2 (10:21→20:18)
[2016-12-15] MEDS: HYDROGEN PEROXIDE 480 ML BOTTLE TP SCH (10:22)
[2016-12-15] MEDS: BACITRACIN ZINC OINT (15 GM) 15 GM TUBE TP SCH (10:22)
[2016-12-15] MEDS: LINEZOLID RTU BAG 600 MG in PREMIX 1 EA IV SCH ×2 (10:39→21:53)
--- NOTE | 2016-12-15 10:53 | NUR ---
DR. GARCIA ON THE UNIT SPEAKS DIRECTLY TO THE FAMILY EXPLAINING THE NEED FOR HEMODIALYSIS. AT THIS TIME THE FAMILY IS DISCUSSING WITH EACH OTHER TO THE PLAN.
--- NOTE | 2016-12-15 11:17 | NUR ---
FAMILY AGREES FOR DIALYSIS. EXPLAINED TO HIM THE PROCEDURE OF PLACING CATHETER AND THEN HEMODIALYSIS AFTERWARDS. CONSENT FORMS SIGNED BY THE SON WHO IS AT BEDSIDE. DR. TORRES CALLS DR. MARR FOR HD CATHETER PLACEMENT (HE IS ON 3WEST PLACING A DIFFERENT CATHETER).
--- NOTE | 2016-12-15 13:11 | NUR ---
DR. MARR IN FOR PROCEDURE. PLACES HD CATHETER (TLC) IN TO RIGHT GROIN, PT TOLERATES PROCEDURE WELL REGARDING VITALS. CALLED AND SPOKE TO BERTHA HD NURSE DOWNSTAIRS IN [place] AND SHE STATES SHE IS ASSIGNED TO DO HD TODAY AND WILL BE UP IN 1-2 HRS. FAMILY AT BEDSIDE UPDATED OF PLAN OF CARE FOR HD.
--- NOTE | 2016-12-15 14:02 | NUR ---
HD NURSE IN FOR TREATMENT.
[2016-12-15] MEDS ORDERED: ALBUMIN 25% 25 GM in PREMIX 1 EA IV PRN (14:30)
--- NOTE | 2016-12-15 14:57 | NUR ---
DURING HD HEART RATE WENT AFIB UNCONTROLLED RANGING FROM 110-130'S, HD NURSE SLOWS DOWN UFR, AND DR. MARR NOTIFIED. HE ORDERS AMIODARONE 150MG BOLUS ONLY, NOT CONTINUOUS DRIP. ORDER PLACED, PHARMACY NOTIFIED.
[2016-12-15] MEDS ORDERED: AMIODARONE 150 MG in IV D5W 100 ML IV ONE (15:00)
--- NOTE | 2016-12-15 18:00 | NUR ---
PATIENT RECEIVED WITH ANTHONY #[address] ON MECHANICAL VENT. ALARMS VERIFIED AND AUDIBLE. SETTING PER 'S ORDERS WITH NO CHANGES MADE TODAY. SUCTIONED AND LAVAGED SMALL-MODERATE AMOUNT OF THIN VO BLOOD TINGED SECRETIONS VIA TRACH AND BLOOD TINGED THIN SECRETION ORALLY. VENT PLUGGED INTO RED OUTLET. AMBU BAG AT [facility].
[2016-12-15] MEDS: METOCLOPRAMIDE HCL 10 MG/2 ML VIAL IV SCH (18:30)
[2016-12-15] MEDS ORDERED: AMIODARONE 900 MG in IV D5W 482 ML IV PRN (18:30)
[2016-12-15] MEDS: NOREPINEPHRINE 16 MG in IV D5W 500 ML IV PRN (18:45)
--- NOTE | 2016-12-15 19:01 | NUR ---
DR. MARR NOTFIED THAT THE HEART RATE REMAINS AT 120-130'S AFTER HD. HE ORDERS TO RESTART AMIODARONE DRIP, BOLUS ALREADY GIVEN.
--- NOTE | 2016-12-15 19:45 | NUR ---
HVAC DESIGNER AMIODARONE DRIP STILL NOT AVAILABLE BY PHARMACY , CALLED PHARMACIST [facility] FOR AMIO DRIP . PHARMACIST SAID THEY WILL BRING SOON POSSIBLE.
--- NOTE | 2016-12-15 20:00 | NUR ---
UROLOGIST PHYSICIAN : AMIO PO ORDER IS STILL ON EMAR .CALLED DR MONAHAN . DR JAIMES IS RESEARCH HYDRAULIC ENGINEER . DR JAIMES ORDERED TO D/C PO AMIO AND CONT WITH DRIP AT A RATE OF 1MG/HR FOR 6 HOURS AND THEN 0.5MG/HR FOR 18 HOURS.
--- NOTE | 2016-12-15 20:30 | NUR ---
TRIMMER SAWYER : PT IS STILL AFIB , AMIO DRIP STARTED . WILL MONITOR RATE AND RHYTHM.
[2016-12-15] MEDS: IV NS 0.9% 250 ML IV PRN (21:53)
--- NOTE | 2016-12-15 22:00 | NUR ---
FLY WINDER: PT DESATURATED WITH REPOSITIONING. WILL GIVE SOME REST AND CONT TO MONITOR. HOB ELEVATED AND SECRETIONS SUCTIONED.
--- NOTE | 2016-12-15 22:30 | NUR ---
SUPERVISOR SHED WORKERS: PT DESATURATING AT 85% , CALLED RT FOR STAT ABG TO BE DONE. HOB ELEVATED, MOUTH AND TRACH SUCTIONED.
--- NOTE | 2016-12-15 22:38 | NUR ---
TSO: PT CONVERTED TO SINUS RHYTHM. HR 75. WILL CONT TO MONITOR.
--- NOTE | 2016-12-15 23:18 | NUR ---
BANKING OFFICER : DR CURTIS AT BEDSIDE , AWARE OF PTS CURRENT RESP STATUS OF DESATURATION IN THE 85% FOR THE LAST FEW HOURS . NO ORDERS AT THIS TIME. WILL F/U WITH AM ABG .
[2016-12-16] VITALS (104 sets, daily range): BP systolic 83–128; BP diastolic 28–68
[2016-12-16] MEDS: METOCLOPRAMIDE HCL 10 MG/2 ML VIAL IV SCH ×5 (00:24→23:46)
--- NOTE | 2016-12-16 04:00 | NUR ---
SOLE TACKER PT ONLY GIVEN PARTIAL BED BATH AND LINEN CHANGE DUE TO SEVERE DESATUARTION DURING ACTIVITY. PT DOES NOT TOLERATE ACTIVITY WELL . HOB ELEVATED AND SECRETIONS SUCTIONED. WILL CONT TO MONITOR.
[2016-12-16] MEDS: METRONIDAZOLE 500MG/ NS 100ML 500 MG in PREMIX 1 EA IV SCH ×3 (04:59→20:59)
--- NOTE | 2016-12-16 05:00 | NUR ---
GEOSCIENCE TECHNICIAN PER CHARGE NURSE PT IS TOO UNSTABLE TO REPOSITION FOR CHEST XRAY . WILL HOLD FOR NOW .
[2016-12-16 05:10] LABS: HEMATOCRIT 26 % (39-51); HEMOGLOBIN 8.8 g/dL (13.5-17.5); MEAN CORPUSCULAR HEMOGLOBIN 27 PG (26.0-33.0); MEAN CORPUSCULAR HGB CONC 33 g/dl (31.0-36.0); MEAN CORPUSCULAR VOLUME 82 fL (80-96); PLATELET COUNT (AUTO) 332 /CMM (150-450); RDW COEFFICIENT OF VARIATION 15.9 (11.5-15.0); RED BLOOD CELL COUNT(AUTO) 3.22 MIL/uL (4.5-6.0); WHITE BLOOD COUNT (AUTO) 15.4 K/uL (4.3-11.0)
[2016-12-16 05:34] LABS: CALCIUM, SERUM 7.2 mg/dL (8.5-10.1); CREATININE 4.1 mg/dL (0.6-1.3); MAGNESIUM 2.1 mg/dL (1.8-2.4); POTASSIUM 4.4 mmol/L (3.5-5.1)
[2016-12-16 05:39] LABS: PHOSPHORUS 9.2 mg/dL (2.5-4.9)
--- NOTE | 2016-12-16 06:27 | NUR ---
RT END OF THE SHIFT REPORT, PATIENT REMAIN TRACHED SHILEY XLT # 8 ON VENT. PCV PER MD ORDER.. ALARMS VERIFIED AND AUDIBLE. SUCTIONED AND LAVAGED MODERATE-LARGE AMOUNT OF THICK VO SECRETIONS VIA ETT B/S RHONCHI BILATERALLY AND . VENT PLUGGED INTO RED OUTLET. AMBU BAG AT HOB. NO DISTRESS NOTED T/O NIGHT REPORT WILL PASS TO AM SHIFT. Addendum: 12/16/16 at 0629 by DANYELLE TOVAR RT Amended: Links added.
[2016-12-16] MEDS ORDERED: IV NS 0.9% 500 ML IV ONE ×2 (06:56→20:55)
[2016-12-16] MEDS: PROPOFOL 100 ML IV PRN ×4 (07:09→23:46)
--- NOTE | 2016-12-16 07:16 | NUR ---
HAIR DRYER : CVP READINGS 12/15 8PM = 20, 12/16 0000= 23, 12/16 0600 = 22
[2016-12-16] MEDS: SEVELAMER CARBONATE 0.8 GM POWD.PACK GT SCH ×3 (08:00→16:46)
[2016-12-16] MEDS ORDERED: SECONDARY IV SET 1 EA INFUS.SET MC ONE ×2 (08:16→13:12)
[2016-12-16] MEDS: MEROPENEM 500 MG in IV NS 0.9% 50 ML IV SCH ×2 (08:21→21:10)
[2016-12-16] MEDS: ASPIRIN 325 MG TABLET PO SCH (08:30)
[2016-12-16] MEDS: METOLAZONE 2.5 MG TABLET PO SCH (08:30)
[2016-12-16] MEDS: DOCUSATE SODIUM LIQ 100 MG/10 ML UDC PO SCH (08:30)
[2016-12-16] MEDS: LACTOBACILLUS RHAMNOSUS GG 1 EACH CAP.SPRINK GT SCH ×2 (08:30→16:45)
[2016-12-16] MEDS: HYDROGEN PEROXIDE 480 ML BOTTLE TP SCH (09:08)
[2016-12-16] MEDS: LINEZOLID RTU BAG 600 MG in PREMIX 1 EA IV SCH ×2 (09:08→21:57)
[2016-12-16] MEDS: PANTOPRAZOLE 40 MG VIAL IV SCH (09:08)
[2016-12-16] MEDS: BACITRACIN ZINC OINT (15 GM) 15 GM TUBE TP SCH (09:09)
[2016-12-16] MEDS: Sodium Bicarbonate 150 MEQ in IV D5 / 0.2% NACL 1,000 ML IV PRN ×2 (09:21→21:21)
[2016-12-16 09:42] LABS: ABG BASE EXCESS 11.4 mmol/L; ABG OXYGEN SATURATION 89.1 % (92.0-98.5); ABG PCO2 101.7 mmHg (35.0-45.0); ABG PH 7.228 (7.350-7.450); AaDO2 547.3 mmHg; COHb 0.9 % (0.5-1.5); MetHb 0.4 % (0.0-1.5); O2Hb 87.9 % (94.0-97.0); PEEP,BG 0 cm H2O; SITE, ABG Right Radial; VENT MODE, BG pcv 68
--- NOTE | 2016-12-16 09:45 | NUR ---
SOLDERER ASSEMBLER- HD STARTED PER DR. TORRES'S ORDER. 1230- HD COMPLETED. 4.3 L OUT. WILL CONTINUE TO MONITOR.
[2016-12-16] MEDS ORDERED: IV SET PRIMARY PUMP SET 1 EA INFUS.SET MC ONE ×3 (12:20→21:30)
--- NOTE | 2016-12-16 15:55 | NUR ---
CLIENT SERVICES ASSISTANT- DR. JAIMES AT BEDSIDE. PER GREG GARNICA TO KEEP AMIODARONE GTT PAST 24 HOUR LIANE, CONTINUE CURRENT RATE AT 0.5 MG/MIN. WILL RE-EVALUATE NEED TOMORROW. AMIODARONE GTT RE-ORDERED. WILL CONTINUE TO MONITOR.
[2016-12-16] MEDS: NOREPINEPHRINE 16 MG in IV D5W 500 ML IV PRN (16:50)
[2016-12-16] MEDS: AMIODARONE 900 MG in IV D5W 482 ML IV PRN (17:06)
--- NOTE | 2016-12-16 18:00 | NUR ---
BILINGUAL SPEECH THERAPIST- CVP READINGS FOLLOWS: 0800: 22, 1200: 20, 1600: 22. WILL CONTINUE TO MONITOR.
[2016-12-16] MEDS: IV NS 0.9% 250 ML IV PRN (21:00)
[2016-12-17] VITALS (104 sets, daily range): BP systolic 80–135; BP diastolic 15–70
--- NOTE | 2016-12-17 04:00 | NUR ---
INSOLE AND HEEL STIFFENER: PT DOES NOT TOLERATE ACTIVITY WELL. AFTER BED BATH O2 SAT DROPPED TO 70 % . HOB ELEVATED AND SECRETIONS SUCTIONED. AFTER A FEW MINUTES O2 SAT INCREASED TO PTS BASLINE IF 85%.
[2016-12-17 04:37] LABS: HEMATOCRIT 27 % (39-51); MEAN CORPUSCULAR HEMOGLOBIN 27 PG (26.0-33.0); MEAN CORPUSCULAR HGB CONC 33 g/dl (31.0-36.0); MEAN CORPUSCULAR VOLUME 82 fL (80-96); PLATELET COUNT (AUTO) 354 /CMM (150-450); RDW COEFFICIENT OF VARIATION 16.9 (11.5-15.0); WHITE BLOOD COUNT (AUTO) 17.6 K/uL (4.3-11.0)
[2016-12-17 04:58] LABS: EOSINOPHILS % (MANUAL) 5 % (0-4); LYMPHOCYTES % (MANUAL) 11 % (16-48); MONOCYTES % (MANUAL) 4 % (0-11.0); NEUTROPHILS % (MANUAL) 80 (42-76)
[2016-12-17 05:05] LABS: CALCIUM, SERUM 7.1 mg/dL (8.5-10.1); CREATININE 4.5 mg/dL (0.6-1.3); MAGNESIUM 2.2 mg/dL (1.8-2.4); POTASSIUM 4.2 mmol/L (3.5-5.1)
[2016-12-17 05:12] LABS: PHOSPHORUS 9.9 mg/dL (2.5-4.9)
[2016-12-17] MEDS: PROPOFOL 100 ML IV PRN ×3 (05:35→21:49)
[2016-12-17] MEDS: METOCLOPRAMIDE HCL 10 MG/2 ML VIAL IV SCH ×4 (05:35→23:19)
[2016-12-17] MEDS: METRONIDAZOLE 500MG/ NS 100ML 500 MG in PREMIX 1 EA IV SCH ×3 (05:36→20:19)
--- NOTE | 2016-12-17 05:48 | NUR ---
RT NOTE: PATIENT RECEIVED WITH #8 SHILEY DISTAL XL TRACH ON MECHANICAL VENT. SETTINGS NOTED. ALARMS VERIFIED AND AUDIBLE. SUCTIONED AND LAVAGED SMALL-MODERATE AMOUNT OF THICK VO/WHITE SECRETIONS. SP02 REMAINS AT 84-86% THROUGHOUT SHIFT. FI02 AT 100%. NURSE AWARE. VENT PLUGGED INTO RED OUTLET. AMBU BAG AT [facility].
--- NOTE | 2016-12-17 06:42 | NUR ---
FACE WORKER- CVP READINGS:2000: 20, 0000: 30, 0400: 26.
--- NOTE | 2016-12-17 07:16 | NUR ---
PATIENT REC'D TRACHED ON [facility] VENT WITH SETTINGS SET PER . VENT ALARMS CHECKED + AUDIBLE. CUFF PRESSURE CHECKED USER EXPERIENCE LEAD. TRACH SECURE AND IN PROPER POSITION. VENT PLUGGED INTO RED OUTLET. B/S DIM COARSE. SX'D WITH SM/MD LUBINT PALE SEMITHICK SECRETIONS. PATIENT IN CRITICAL CONDITION. AMBU BAG AT [facility]. CONT CURRENT PLAN OF RESP CARE. Addendum: 12/17/16 at 1141 by ANNA CHENG RT Amended: Links added.
[2016-12-17] MEDS: SEVELAMER CARBONATE 0.8 GM POWD.PACK GT SCH ×3 (08:00→17:07)
[2016-12-17] MEDS: MEROPENEM 500 MG in IV NS 0.9% 50 ML IV SCH ×2 (08:00→20:18)
[2016-12-17] MEDS: PANTOPRAZOLE 40 MG VIAL IV SCH (08:00)
[2016-12-17] MEDS: ASPIRIN 325 MG TABLET PO SCH (08:10)
[2016-12-17] MEDS: DOCUSATE SODIUM LIQ 100 MG/10 ML UDC PO SCH (08:10)
[2016-12-17] MEDS: LACTOBACILLUS RHAMNOSUS GG 1 EACH CAP.SPRINK GT SCH ×2 (08:10→17:07)
[2016-12-17] MEDS: METOLAZONE 2.5 MG TABLET PO SCH (08:11)
[2016-12-17 08:36] LABS: ABG BASE EXCESS 6.8 mmol/L; ABG OXYGEN SATURATION 82.2 % (92.0-98.5); ABG PCO2 103.3 mmHg (35.0-45.0); ABG PH 7.177 (7.350-7.450); ABG PO2 59.5 mmHg (75.0-100.0); AaDO2 550.2 mmHg; COHb 0.7 % (0.5-1.5); MetHb 0.6 % (0.0-1.5); O2Hb 81.1 % (94.0-97.0)
--- NOTE | 2016-12-17 08:45 | NUR ---
IT RISK ANALYST- SEDATION VACATION DONE. DIPRIVAN GTT STOPPED AND PT NOTED WITH TACHYPNEA, RESPIRATIONS= 35-40S AND INCREASED FACIAL GRIMACING. DIPRIVAN GTT RE-STARTED AT 20 MCG/MIN. WILL CONTINUE TO MONITOR.
[2016-12-17] MEDS: HYDROGEN PEROXIDE 480 ML BOTTLE TP SCH (08:46)
[2016-12-17] MEDS: LINEZOLID RTU BAG 600 MG in PREMIX 1 EA IV SCH ×2 (08:46→20:18)
[2016-12-17] MEDS: BACITRACIN ZINC OINT (15 GM) 15 GM TUBE TP SCH (08:47)
--- NOTE | 2016-12-17 09:00 | NUR ---
MAIL OFFICER- DR. HANDY INFORMED REGARDING AM ABG RESULTS. PER MD, NO NEW ORDERS AT THIS TIME. AWAITING FOR DR. TORRES FOR POSSIBLE DIALYSIS. WILL CONTINUE TO MONITOR.
[2016-12-17] MEDS ORDERED: IV SET PRIMARY PUMP SET 1 EA INFUS.SET MC ONE ×3 (10:16→20:20)
[2016-12-17] MEDS: Sodium Bicarbonate 150 MEQ in IV D5 / 0.2% NACL 1,000 ML IV PRN (10:38)
[2016-12-17] MEDS: NOREPINEPHRINE 16 MG in IV D5W 500 ML IV PRN (10:38)
--- NOTE | 2016-12-17 11:10 | NUR ---
LOAN CLOSER- DR. HANDY AT BEDSIDE. INFORMED MD PT STILL ON NGT TO LIS WITH NO OUT FOR 24 HOURS. PER MD, OK TO CLAMP NGT AND D/C LIS. PT TO BE NPO EXCEPT MEDS. ALL ORDERS PLACED. WILL CONTINUE TO MONITOR.
[2016-12-17] MEDS ORDERED: POTASSIUM CHLORIDE 20 MEQ TAB.PRT.SR PO ONE (11:51)
--- NOTE | 2016-12-17 13:50 | NUR ---
OPERATIONS SUPPORT SPECIALIST- HD STARTED AT 1030. HD COMPLETED AT 1350. HD NURSE REMOVED 5 L OUT. PT DID NOT TOLERATE HD WELL, LEVOPHED HAD TO BE STARTED FOR BP SUPPORT. DURING HD, SPO2 CONTINUED TO DROP. DR. GARCIA WAS AWARE. AFTER HD, SPO2 HAS REMAINED IN THE LOW TO MID 60S. WILL CONTINUE TO MONITOR.
--- NOTE | 2016-12-17 15:30 | NUR ---
CIRCULAR HEAD SAW OPERATOR- FAMILY AT BEDSIDE. NBA CHARGE NURSE UPDATED FAMILY ON PT'S CONDITION, PROGNOSIS AND UPDATE. ALL QUESTIONS ANSWERED. WILL CONTINUE TO MONITOR.
[2016-12-17] MEDS ORDERED: IV NS 0.9% 250 ML IV ONE (16:00)
[2016-12-17] MEDS ORDERED: IV NS 0.9% 500 ML IV ONE (17:02)
--- NOTE | 2016-12-17 18:00 | NUR ---
PROFESSIONAL HOUSING CONSULTANT- COMPLETE BED BATH NOT GIVEN TO PATIENT DUE TO PATIENT CONDITION. DIAPER AND MELINDA WAS CHANGED WITH ASSISTANCE OF 2 NURSES. PT REMAINS SATURATING IN THE MID-60S. WILL ENDORSE TO MIDD[employer] SCHOOL PROFESSIONAL NURSE. WILL CONTINUE TO MONITOR.
--- NOTE | 2016-12-17 18:30 | NUR ---
WRAPPER COUNTER- DR. JAIMES HAS YET TO SEE PATIENT. AMIODARONE GTT CONTINUES TO RUN AT 0.5 MG/MIN. NEW BAG HUNG. PT SINUS RHYTHM ON THE MONITOR, HR= 92. WILL ENDORSE TO DIRECTOR OF PEOPLE NURSE TO ASK MD IF HE WOULD LIKE TO CONTINUE AMIODARONE GTT. WILL CONTINUE TO MONITOR.
[2016-12-17] MEDS: AMIODARONE 900 MG in IV D5W 482 ML IV PRN (18:37)
--- NOTE | 2016-12-17 20:00 | NUR ---
BIOTECHNICIAN - NOTES - RECEIVED THE PT REST IN THE BED. TRACH TO VENT CONNECTED.PT IS HEMO DYNAMICALLY VERY UNSTABLE. SHILEY XLT 8, RATE 28,PRESSURE CONTROL 68, FIO2 100%. SAT 96%EXPERIMENTAL BOX TESTER SHOWING NSR, IV RT UPPER ARM PICC LINE. DIPRIVAN 25MCG/KG/MIN, LEVOPHED @ 9 MCG/MIN, AMIODARONE 0.5MG/MIN. GT INTACT. NPO EXCEPT MEDS. F/C PATENT. HOB ELEVATED TURN AND REPOSITION Q2H. WILL CONTINUE TO MONITOR VITALS.
--- NOTE | 2016-12-17 20:30 | NUR ---
DR JAIMES AT BEDSIDE TO SEE PATIENT, ORDER TO CONTINUE TO AMIODARONE DRIP AND LEVOPHED DRIP TO KEEP MAP >65
--- NOTE | 2016-12-17 21:30 | NUR ---
DR HERRERA CALLED REGARDING PT TUBE FEEDING, PT IS NOT ON TUBE FEEDING RIGHT NOW.
--- NOTE | 2016-12-17 22:20 | NUR ---
SPOKE WITH FAMILY MEMBERS, 2 SONS AND FAMILY, FAMILY AGREES TO MAKE PATIENT DNR, FAMILY EXPLAINED WHAT A DO NOT RESUSCITATE ORDER INCLUDES. DR CURTIS CALLED TO CONFIRM DNR STATUS, ORDER PLACED BY GERIATRIC NURSE ED AND MYSELF.
[2016-12-18] VITALS (113 sets, daily range): BP systolic 57–156; BP diastolic 20–87
[2016-12-18] MEDS ORDERED: IV SET PRIMARY PUMP SET 1 EA INFUS.SET MC ONE ×3 (04:29→23:02)
[2016-12-18] MEDS: METOCLOPRAMIDE HCL 10 MG/2 ML VIAL IV SCH ×4 (05:00→23:10)
[2016-12-18] MEDS: METRONIDAZOLE 500MG/ NS 100ML 500 MG in PREMIX 1 EA IV SCH ×3 (05:00→20:55)
[2016-12-18] MEDS: IV NS 0.9% 250 ML IV PRN (05:01)
[2016-12-18 05:02] LABS: HEMATOCRIT 27 % (39-51); HEMOGLOBIN 8.8 g/dL (13.5-17.5); MEAN CORPUSCULAR HEMOGLOBIN 27 PG (26.0-33.0); MEAN CORPUSCULAR HGB CONC 33 g/dl (31.0-36.0); MEAN CORPUSCULAR VOLUME 82 fL (80-96); PLATELET COUNT (AUTO) 378 /CMM (150-450); RDW COEFFICIENT OF VARIATION 15.9 (11.5-15.0); RED BLOOD CELL COUNT(AUTO) 3.24 MIL/uL (4.5-6.0); WHITE BLOOD COUNT (AUTO) 22.4 K/uL (4.3-11.0)
[2016-12-18 05:18] LABS: CALCIUM, SERUM 6.7 mg/dL (8.5-10.1); CREATININE 4.3 mg/dL (0.6-1.3); MAGNESIUM 1.8 mg/dL (1.8-2.4); PHOSPHORUS 7.9 mg/dL (2.5-4.9); POTASSIUM 4.5 mmol/L (3.5-5.1)
[2016-12-18 05:32] LABS: BAND % (MANUAL) 3 % (0.0-5.0); EOSINOPHILS % (MANUAL) 4 % (0-4); LYMPHOCYTES % (MANUAL) 6 % (16-48); MONOCYTES % (MANUAL) 2 % (0-11.0); NEUTROPHILS % (MANUAL) 85 (42-76)
[2016-12-18] MEDS: PROPOFOL 100 ML IV PRN ×4 (06:00→23:06)
[2016-12-18] MEDS ORDERED: SECONDARY IV SET 1 EA INFUS.SET MC ONE ×2 (08:16→09:17)
--- NOTE | 2016-12-18 08:16 | NUR ---
PATIENT REC'D TRACHED ON [facility] VENT WITH SETTINGS SET PER . VENT ALARMS CHECKED + AUDIBLE. CUFF PRESSURE CHECKED COW TESTER. TRACH SECURE AND IN PROPER POSITION. VENT PLUGGED INTO RED OUTLET. B/S DIM COARSE. SX'D WITH SM/MD LUBINT PALE SEMITHICK SECRETIONS. PATIENT IN CRITICAL CONDITION. AMBU BAG AT [facility]. CONT CURRENT PLAN OF RESP CARE. Addendum: 12/18/16 at 0817 by ANNA CHENG RT Amended: Links added.
[2016-12-18] MEDS: DOCUSATE SODIUM LIQ 100 MG/10 ML UDC PO SCH (08:22)
[2016-12-18] MEDS: SEVELAMER CARBONATE 0.8 GM POWD.PACK GT SCH ×3 (08:22→17:56)
[2016-12-18] MEDS: MEROPENEM 500 MG in IV NS 0.9% 50 ML IV SCH ×2 (08:22→20:21)
[2016-12-18] MEDS: LACTOBACILLUS RHAMNOSUS GG 1 EACH CAP.SPRINK GT SCH ×2 (08:22→17:55)
[2016-12-18] MEDS: ASPIRIN 325 MG TABLET PO SCH (08:22)
[2016-12-18] MEDS: PANTOPRAZOLE 40 MG VIAL IV SCH (08:22)
[2016-12-18] MEDS: METOLAZONE 2.5 MG TABLET PO SCH (08:23)
[2016-12-18] MEDS: NOREPINEPHRINE 16 MG in IV D5W 500 ML IV PRN (08:24)
[2016-12-18] MEDS: BACITRACIN ZINC OINT (15 GM) 15 GM TUBE TP SCH (08:25)
[2016-12-18] MEDS: HYDROGEN PEROXIDE 480 ML BOTTLE TP SCH (08:25)
[2016-12-18] MEDS ORDERED: EPOETIN ALFA (10,000 UNIT) 10,000 UNIT/ML VIAL SQ ONE (09:00)
--- NOTE | 2016-12-18 09:10 | NUR ---
RETAIL COORDINATOR- DR. LOVELACE AT BEDSIDE. ORDERS RECEIVED TO INCREASE PEEP TO 5 AND DO ABGS 30 MINS AFTER CHANGE IN PEEP. 0915- ANNA RT AWARE AND PEEP INCREASED PER MD ORDER. 1020- ABGS DONE AND RESULTS GIVEN TO DR. LOVELACE FOR REVIEW. NEW ORDERS RECEIVED BY AND RELAYED TO ANNA QUEZADA. WILL CONTINUE TO MONITOR.
[2016-12-18] MEDS: LINEZOLID RTU BAG 600 MG in PREMIX 1 EA IV SCH ×2 (09:29→21:52)
[2016-12-18 10:21] LABS: ABG BASE EXCESS 6.7 mmol/L; ABG OXYGEN SATURATION 68.8 % (92.0-98.5); ABG PCO2 61.9 mmHg (35.0-45.0); ABG PH 7.351 (7.350-7.450); ABG PO2 42.1 mmHg (75.0-100.0); COHb 1.2 % (0.5-1.5); MetHb 1.2 % (0.0-1.5); O2Hb 67.1 % (94.0-97.0); PEEP,BG 5 cm H2O; SITE, ABG Right Radial; VENT MODE, BG PC 68
--- NOTE | 2016-12-18 10:50 | NUR ---
STEAM SHOVELMAN- DIALYSIS WAS STARTED AT 0950. DIALYSIS STOPPED AT 1050. ONLY 1 L WAS TAKEN OUT. DIALYSIS STOPPED DUE TO PT BECOMING MORE UNSTABLE, BP DROPPING TO THE 50S. WILL CONTINUE TO MONITOR.
--- NOTE | 2016-12-18 13:50 | NUR ---
MERCURY WASHER- PT'S FAMILY AT BEDSIDE. NBA CHARGE NURSE UPDATED PT'S SON ON CURRENT LABS, X-RAY, CONDITION, DIALYSIS OUTCOME. ALL QUESTIONS ANSWERED. WILL CONTINUE TO MONITOR.
--- NOTE | 2016-12-18 15:42 | NUR ---
PER DR LOVELACE INSP PRESSURE DECREASED TO 40 TO MAINTAIN A VT OF 450. MAY TITRATE INSP PRESSURE TO MAINTAIN VT. Addendum: 12/18/16 at 1543 by ANNA CHENG RT Amended: Links added.
[2016-12-18] MEDS ORDERED: IV NS 0.9% 500 ML IV ONE (17:43)
[2016-12-18] MEDS: AMIODARONE 900 MG in IV D5W 482 ML IV PRN (17:57)
--- NOTE | 2016-12-18 19:30 | NUR ---
RN INITIAL NOTES RECEIVED PT AWAKE ON BED, OBTUNDED, OPENS EYES ONLY. ON VENT, AC 18, 100% FIO2, PEEP 15, PRESSURE CONTROL 68, SHILEY 8 XLT; WITH LABORED BREATHING, SATURATING >= 78%, IS AWARE. CURRENTLY SEDATED ON DIPRIVAN @ 30 MCG/KG/MIN. CURRENTLY UNCONTROLLED AFIB, HR 120-130'S. ON CONTINUOUS AMIO DRIP @ 0.5MG/MIN. ON CVP MONITORING. ON LEVO DRIP @ 16MCG/MIN TO KEEP SBP > 90. JTUBE IS CLAMPED. PARRA CATH INTACT. RIGHT UPPER ARM WITH TKO, FLUSHED AND PATENT, NO S/S OF INFILTRATION/INFECTION, DRESSING CDI. RIGHT FEMORAL HD CATH WITH PIGTAIL NOTED. BED LOW AND LOCKED, SIDERAILS UP. WILL MONITOR
[2016-12-19] VITALS (90 sets, daily range): BP systolic 69–139; BP diastolic 47–88
[2016-12-19] MEDS: PROPOFOL 100 ML IV PRN ×3 (04:42→20:04)
[2016-12-19 05:01] LABS: HEMATOCRIT 25 % (39-51); HEMOGLOBIN 8.7 g/dL (13.5-17.5); MEAN CORPUSCULAR HEMOGLOBIN 28 PG (26.0-33.0); MEAN CORPUSCULAR HGB CONC 34 g/dl (31.0-36.0); MEAN CORPUSCULAR VOLUME 81 fL (80-96); PLATELET COUNT (AUTO) 369 /CMM (150-450); RDW COEFFICIENT OF VARIATION 16.4 (11.5-15.0); RED BLOOD CELL COUNT(AUTO) 3.13 MIL/uL (4.5-6.0); WHITE BLOOD COUNT (AUTO) 25.8 K/uL (4.3-11.0)
[2016-12-19] MEDS: METOCLOPRAMIDE HCL 10 MG/2 ML VIAL IV SCH ×4 (05:26→23:15)
[2016-12-19] MEDS: METRONIDAZOLE 500MG/ NS 100ML 500 MG in PREMIX 1 EA IV SCH ×3 (05:26→21:01)
[2016-12-19 05:28] LABS: CALCIUM, SERUM 6.4 mg/dL (8.5-10.1); CREATININE 4.5 mg/dL (0.6-1.3); POTASSIUM 4.6 mmol/L (3.5-5.1)
[2016-12-19] MEDS: IV NS 0.9% 250 ML IV PRN (05:32)
[2016-12-19 05:50] LABS: PHOSPHORUS 8.2 mg/dL (2.5-4.9)
--- NOTE | 2016-12-19 06:30 | NUR ---
RN CLOSING NOTES PT REMAINS TO BE SATURATING 70'S, STILL ON AMIO DRIP, ON LEVO DRIP @ 5MCG/MIN, AND DIPRIVAN @ 30MCG/KG/MIN. ALL DUE MEDS GIVEN, AM CARE PROVIDED. WILL ENDORSE CONTINUITY OF CARE TO AM RN
[2016-12-19] MEDS: SEVELAMER CARBONATE 0.8 GM POWD.PACK GT SCH ×3 (07:55→17:37)
--- NOTE | 2016-12-19 08:00 | NUR ---
PT RECVD INTUBATED AND ON PRESSURE SETTINGS TO KEEP TV AROUND 450. AFIB WITH BOUTS OF SINUS RATE UNCONTROLLED AT 100-130'S - ON CONTINUOUS AMIO DRIP (0.5MCG) PER DR. MARR GT CLAMPED NPO X MEDS -DR HERRERA NOTES THAT WE WILL RESUME FEEDS WHEN [employer] IMPROVES (CVP IN 20'S...) DIPRIVAN AT 30MCG WILL DROP DOWN FOR SEDATION VACATION NO ORDERS FOR HD TODAY. PT HAS HAD HD FOR LAST 4 DAYS PER REPORT. AWAITING FOR RENAL FOR ORDERS. ON THE THE FAMILY AGREED WITH DNR CODE STATUS.
[2016-12-19] MEDS: ASPIRIN 325 MG TABLET PO SCH (08:01)
[2016-12-19] MEDS: MEROPENEM 500 MG in IV NS 0.9% 50 ML IV SCH ×2 (08:01→20:20)
[2016-12-19] MEDS: LACTOBACILLUS RHAMNOSUS GG 1 EACH CAP.SPRINK GT SCH ×2 (08:01→17:37)
[2016-12-19] MEDS: DOCUSATE SODIUM LIQ 100 MG/10 ML UDC PO SCH (08:02)
[2016-12-19] MEDS: PANTOPRAZOLE 40 MG VIAL IV SCH (08:02)
[2016-12-19] MEDS: BACITRACIN ZINC OINT (15 GM) 15 GM TUBE TP SCH (08:15)
[2016-12-19] MEDS: HYDROGEN PEROXIDE 480 ML BOTTLE TP SCH (08:16)
[2016-12-19] MEDS ORDERED: IV SET PRIMARY PUMP SET 1 EA INFUS.SET MC ONE ×2 (08:32→20:14)
[2016-12-19] MEDS: NOREPINEPHRINE 16 MG in IV D5W 500 ML IV PRN (08:50)
[2016-12-19] MEDS: LINEZOLID RTU BAG 600 MG in PREMIX 1 EA IV SCH ×2 (08:58→21:46)
--- NOTE | 2016-12-19 11:01 | NUR ---
HD NURSE IN FOR TREATMENT.
--- NOTE | 2016-12-19 13:00 | NUR ---
HD COMPLETE 2 LITERS OUT.
[2016-12-19 17:09] LABS: ABG BASE EXCESS 4.6 mmol/L; ABG OXYGEN SATURATION 79.7 % (92.0-98.5); ABG PCO2 54.5 mmHg (35.0-45.0); ABG PH 7.369 (7.350-7.450); ABG PO2 51.4 mmHg (75.0-100.0); AaDO2 607.1 mmHg; COHb 1.5 % (0.5-1.5); O2Hb 77.7 % (94.0-97.0); PEEP,BG 15 cm H2O; SITE, ABG Right Radial
[2016-12-19] MEDS: AMIODARONE 900 MG in IV D5W 482 ML IV PRN (17:44)
--- NOTE | 2016-12-19 19:30 | NUR ---
RN INITIAL NOTES RECEIVED PT AWAKE ON BED, OBTUNDED, OPENS EYES ONLY. ON VENT, AC 18, 100% FIO2, PEEP 15, PRESSURE CONTROL 71, SHILEY 8 XLT; WITH LABORED BREATHING, SATURATING >= 85%. CURRENTLY SEDATED ON DIPRIVAN @ 30 MCG/KG/MIN. CURRENTLY UNCONTROLLED AFIB, HR 120-130'S. ON CONTINUOUS AMIO DRIP @ 0.5MG/MIN. ON CVP MONITORING. ON LEVO DRIP @ 10MCG/MIN TO KEEP SBP > 90. GTUBE IS CLAMPED. PARRA CATH INTACT. RIGHT UPPER ARM WITH TKO, FLUSHED AND PATENT, NO S/S OF INFILTRATION/INFECTION, DRESSING CDI. RIGHT FEMORAL HD CATH WITH PIGTAIL NOTED. BED LOW AND LOCKED, SIDERAILS UP. WILL MONITOR
--- NOTE | 2016-12-19 20:20 | NUR ---
RN NOTES CALLED DR HERRERA TO VERIFY HIS NOTES IN REGARDS TO RESTARTING FEEDING. PER MD, RESTART NOVASOURCE GTUBE FEEDING AT LOW RATE OF 25MLS/HR. WILL INITIATE ORDER
[2016-12-19] MEDS: RENAL NOVASOURCE 1,000 ML BOTTLE GT PRN (21:45)
--- NOTE | 2016-12-19 21:51 | NUR ---
PT RECEIVED TRACHED ON VENT PC MODE. VENT ALARMS SET AND AUDILBE. AMBU BAG AT HOB. SML AMT OF THICK SECRETIONS. B/S DIM BILA. VENT PLUGGED INTO RED OUTLET. TRACH CUFF SECURE AND PACKAGE CENTER SUPERVISOR. WILL CONTINUE TO MONITOR. Addendum: 12/19/16 at 2152 by LIZ QUIÑONES RT Amended: Links added.
[2016-12-20] VITALS (72 sets, daily range): BP systolic 83–136; BP diastolic 36–78
[2016-12-20] MEDS: PROPOFOL 100 ML IV PRN ×3 (01:36→20:15)
[2016-12-20 04:43] LABS: HEMATOCRIT 25 % (39-51); HEMOGLOBIN 8.8 g/dL (13.5-17.5); MEAN CORPUSCULAR HEMOGLOBIN 29 PG (26.0-33.0); MEAN CORPUSCULAR HGB CONC 35 g/dl (31.0-36.0); MEAN CORPUSCULAR VOLUME 81 fL (80-96); PLATELET COUNT (AUTO) 306 /CMM (150-450); RED BLOOD CELL COUNT(AUTO) 3.07 MIL/uL (4.5-6.0); WHITE BLOOD COUNT (AUTO) 24.6 K/uL (4.3-11.0)
[2016-12-20 04:54] LABS: CALCIUM, SERUM 6.4 mg/dL (8.5-10.1); CREATININE 3.8 mg/dL (0.6-1.3); MAGNESIUM 1.9 mg/dL (1.8-2.4); PHOSPHORUS 6.4 mg/dL (2.5-4.9)
[2016-12-20] MEDS: METOCLOPRAMIDE HCL 10 MG/2 ML VIAL IV SCH ×4 (05:02→23:54)
[2016-12-20] MEDS: METRONIDAZOLE 500MG/ NS 100ML 500 MG in PREMIX 1 EA IV SCH ×3 (05:02→21:47)
[2016-12-20] MEDS: IV NS 0.9% 250 ML IV PRN (05:07)
--- NOTE | 2016-12-20 06:30 | NUR ---
RN CLOSING NOTES PT REMAINS TO BE SATURATING 70'S, STILL ON AMIO DRIP, ON LEVO DRIP @ 2MCG/MIN, AND DIPRIVAN @ 30MCG/KG/MIN. ALL DUE MEDS GIVEN, AM CARE PROVIDED. WILL ENDORSE CONTINUITY OF CARE TO AM RN
--- NOTE | 2016-12-20 07:40 | NUR ---
PATIENT REC'D TRACHED ON [facility] VENT WITH SETTINGS SET PER . VENT ALARMS CHECKED + AUDIBLE. CUFF PRESSURE CHECKED HOB MACHINE OPERATOR. TRACH SECURE AND IN PROPER POSITION. VENT PLUGGED INTO RED OUTLET. B/S DIM COARSE. SX'D WITH SM/MD LUBINT PALE SEMITHICK SECRETIONS. PATIENT IN CRITICAL CONDITION. AMBU BAG AT [facility]. CONT CURRENT PLAN OF RESP CARE. Addendum: 12/20/16 at 1402 by ANNA CHENG RT Amended: Links added.
[2016-12-20] MEDS: SEVELAMER CARBONATE 0.8 GM POWD.PACK GT SCH ×3 (08:00→18:59)
--- NOTE | 2016-12-20 08:00 | NUR ---
RECEIVED PATIENT IN BED, ON TRAC/ VENT 100% FIO2 AND SATING 71- 87%, PATIENT COMPLETELY UNAWARE OF HIS ENVIRONMENT. PROPOFOL AT 30MCG/KG/MIN , 14.94CC/H, NOREPI @I MCG/KG/MIN NS @5CC/H VIA RIGHT UPPER ARM TRIPPLE LUMEN PICC LINE.AND NORVA SOURCE RENAL @25CC/H VIA PEG TUBE FEEDING. TEMPERATURE READ 98.1 AUXILIARY. OTHER VITAL SIGNS WERE RECORDED ACCORDINGLY. THE ATTENTION OF THE RESPIRATORY THERAPIST WAS DRAWN TO THE PULSE OXIMETRY RATE AND HE SAID THE DOCTORS WERE AWARE AND NOTHING COULD BE DONE ABOUT IT. WILL MONITOR
[2016-12-20 09:19] LABS: ABG OXYGEN SATURATION 75.2 % (92.0-98.5); ABG PCO2 46.7 mmHg (35.0-45.0); ABG PH 7.372 (7.350-7.450); ABG PO2 48.4 mmHg (75.0-100.0); AaDO2 617.9 mmHg; O2Hb 72.9 % (94.0-97.0); SITE, ABG Right Radial
[2016-12-20] MEDS: PANTOPRAZOLE 40 MG VIAL IV SCH (09:44)
[2016-12-20] MEDS: LINEZOLID RTU BAG 600 MG in PREMIX 1 EA IV SCH ×2 (09:44→23:06)
[2016-12-20] MEDS: ASPIRIN 325 MG TABLET PO SCH (09:44)
[2016-12-20] MEDS: LACTOBACILLUS RHAMNOSUS GG 1 EACH CAP.SPRINK GT SCH ×2 (09:45→17:00)
[2016-12-20] MEDS: BACITRACIN ZINC OINT (15 GM) 15 GM TUBE TP SCH (09:47)
[2016-12-20] MEDS: MEROPENEM 500 MG in IV NS 0.9% 50 ML IV SCH ×2 (09:47→21:08)
[2016-12-20] MEDS: DOCUSATE SODIUM LIQ 100 MG/10 ML UDC PO SCH (09:47)
[2016-12-20] MEDS: HYDROGEN PEROXIDE 480 ML BOTTLE TP SCH (09:48)
--- NOTE | 2016-12-20 10:00 | NUR ---
HEMODIALYSIS BY THE BEDSIDE BLOOD PRESSURE KEPT DROPPING AND THE TITRATION OF THE NOREPI CONTINUED AND AND AT 10MCG/KG/MIN AT THIS TIME. WILL CONTINUE TO MONITOR. PATIENT GROSSLY EDEMATOUS ALL OVER.
--- NOTE | 2016-12-20 13:32 | NUR ---
HEMODIALYSIS ENDED A LITTLE EARLIER, 2. 5 LITER TAKEN OUT PER REPORT. PATIENT CONDITION REMAIN SAME. WILL CONTINUE TO MONITOR.
--- NOTE | 2016-12-20 14:01 | NUR ---
PER DR LOVELACE ORDER PEEP INCREASED TO 17 Addendum: 12/20/16 at 1402 by ANNA CHENG RT Amended: Links added.
[2016-12-20] MEDS ORDERED: SECONDARY IV SET 1 EA INFUS.SET MC ONE (19:05)
[2016-12-20] MEDS ORDERED: IV SET PRIMARY PUMP SET 1 EA INFUS.SET MC ONE ×2 (19:05→19:47)
--- NOTE | 2016-12-20 20:20 | NUR ---
PATIENT HAD A CALM SHIFT, DUE MEDICATIONS AND CARE WERE GIVEN. NO CHANGE IN CONDITION REPORT NOW GIVEN TO THE ON COMING STAFF FOR CONTINUED EXPERT CARE.
--- NOTE | 2016-12-20 20:25 | NUR ---
Received report from previous shift RNBRIE.Patient in critical condition with labored breathing on mechanical vent Rate 28, PC 53,FIO2 100%PEEP 17 via trach.O2 saturation 84%-86%.Suctioned small amount thick white secretion.Afib 112-120's.Amiodarone drip infusing @ 0.5 mcg/min to R fem. Levophed drip @ 2 mcg/min to titrate to keep MAP >65 and Diprivan drip @ 30mcg/min at MARIANNE PICC Line.Both sites intact.GT feeding in progress at 25 ml/hr minimal residual.FC with tea colored urine small amount.Monitored closely.DNR status.Turned and repositioned.
[2016-12-20] MEDS ORDERED: IV D5W 500 ML IV ONE (22:29)
[2016-12-20] MEDS ORDERED: AMIODARONE 150 MG/3 ML VIAL IV ONE ×2 (22:30→22:31)
[2016-12-20] MEDS: AMIODARONE 900 MG in IV D5W 482 ML IV PRN (22:39)
--- NOTE | 2016-12-20 23:16 | NUR ---
Patient BP 136/78 Levophed drip titrated off and will restart if BP become unstable.
[2016-12-21] VITALS (107 sets, daily range): BP systolic 76–141; BP diastolic 46–78
--- NOTE | 2016-12-21 | NUR ---
Patient remains sedated.Afebrile.Now SR 87.Off Levophed drip.BP stable.CVP reading 20.O2 Saturation 76%.Continue monitoring.
[2016-12-21] MEDS: PROPOFOL 100 ML IV PRN ×5 (01:43→23:45)
[2016-12-21] MEDS ORDERED: IV NS 0.9% 500 ML IV ONE (01:49)
--- NOTE | 2016-12-21 02:00 | NUR ---
CVP line changed.Zeroed and calibrated reading 18.Bed bath rendered with complete linens changed.Turned and repositioned.no acute distress noted.
[2016-12-21] MEDS: METRONIDAZOLE 500MG/ NS 100ML 500 MG in PREMIX 1 EA IV SCH ×3 (05:00→21:13)
[2016-12-21 05:09] LABS: HEMATOCRIT 25 % (39-51); HEMOGLOBIN 9.1 g/dL (13.5-17.5); MEAN CORPUSCULAR HEMOGLOBIN 30 PG (26.0-33.0); MEAN CORPUSCULAR HGB CONC 36 g/dl (31.0-36.0); MEAN CORPUSCULAR VOLUME 82 fL (80-96); PLATELET COUNT (AUTO) 230 /CMM (150-450); RDW COEFFICIENT OF VARIATION 15.7 (11.5-15.0); RED BLOOD CELL COUNT(AUTO) 3.08 MIL/uL (4.5-6.0); WHITE BLOOD COUNT (AUTO) 25.9 K/uL (4.3-11.0)
[2016-12-21 05:13] LABS: CALCIUM, SERUM 6.6 mg/dL (8.5-10.1); CREATININE 3.4 mg/dL (0.6-1.3); PHOSPHORUS 6.3 mg/dL (2.5-4.9); POTASSIUM 4.2 mmol/L (3.5-5.1)
[2016-12-21] MEDS: METOCLOPRAMIDE HCL 10 MG/2 ML VIAL IV SCH ×4 (05:41→23:46)
[2016-12-21 05:42] LABS: EOSINOPHILS % (MANUAL) 4 % (0-4); LYMPHOCYTES % (MANUAL) 7 % (16-48); MONOCYTES % (MANUAL) 1 % (0-11.0); NEUTROPHILS % (MANUAL) 88 (42-76)
[2016-12-21] MEDS ORDERED: IV NS 0.9% 250 ML IV ONE (06:12)
[2016-12-21] MEDS: IV NS 0.9% 250 ML IV PRN (06:18)
--- NOTE | 2016-12-21 06:42 | NUR ---
Patient remains sedated.VS stable.Tele in and out AFIB/SR.Vent settings unchanged with O2 saturation ranging from 89%-98% since 0200 am.Levophed drip infusing at 3 mcg/min,Diprivan drip @ 30 mcg/kg/min,Amiodarone @ 0.5 mcg/min.All due medications administered.Turned and repositioned.No bm noted during the shift.Status remains critical.Will endorse to incoming shift for continuity of care.
[2016-12-21] MEDS ORDERED: IV SET PRIMARY PUMP SET 1 EA INFUS.SET MC ONE ×2 (07:56→23:36)
[2016-12-21] MEDS: MEROPENEM 500 MG in IV NS 0.9% 50 ML IV SCH ×2 (08:04→20:38)
[2016-12-21] MEDS: LACTOBACILLUS RHAMNOSUS GG 1 EACH CAP.SPRINK GT SCH ×2 (08:05→16:12)
[2016-12-21] MEDS: ASPIRIN 325 MG TABLET PO SCH (08:05)
[2016-12-21] MEDS: SEVELAMER CARBONATE 0.8 GM POWD.PACK GT SCH ×3 (08:05→17:10)
[2016-12-21] MEDS: HYDROGEN PEROXIDE 480 ML BOTTLE TP SCH (08:06)
[2016-12-21] MEDS: DOCUSATE SODIUM LIQ 100 MG/10 ML UDC PO SCH (08:06)
[2016-12-21] MEDS: BACITRACIN ZINC OINT (15 GM) 15 GM TUBE TP SCH (08:06)
[2016-12-21] MEDS: PANTOPRAZOLE 40 MG VIAL IV SCH (08:06)
--- NOTE | 2016-12-21 08:10 | NUR ---
PATIENT REC'D TRACHED ON [facility] VENT WITH SETTINGS SET PER . VENT ALARMS CHECKED + AUDIBLE. CUFF PRESSURE CHECKED [employer]. TRACH SECURE AND IN PROPER POSITION. VENT PLUGGED INTO RED OUTLET. B/S DIM COARSE. SX'D WITH SM/ AMT PALE THICK SECRETIONS. PATIENT IN CRITICAL CONDITION. AMBU BAG AT [facility]. Addendum: 12/21/16 at 0811 by JAZMIN RODRIGUEZ RT Amended: Links added.
[2016-12-21] MEDS: LINEZOLID RTU BAG 600 MG in PREMIX 1 EA IV SCH ×2 (08:57→21:14)
--- NOTE | 2016-12-21 09:45 | NUR ---
ICU/RN - Notes Propofol drip turned off to provide pt sedation vacation and assess neurological status. During sedation vacation, pt opens eyes, does not follow commands or track. Pt placed back on sedation as pt manifests distress with tachycardia and tachypnea.
[2016-12-21 10:10] LABS: ABG BASE EXCESS 1.4 mmol/L; ABG OXYGEN SATURATION 90.6 % (92.0-98.5); ABG PCO2 54.7 mmHg (35.0-45.0); ABG PH 7.325 (7.350-7.450); ABG PO2 72.3 mmHg (75.0-100.0); COHb 1.2 % (0.5-1.5); MetHb 1.1 % (0.0-1.5); O2Hb 88.5 % (94.0-97.0); PEEP,BG 17 cm H2O; SITE, ABG Right Radial; VENT MODE, BG PC 53
--- NOTE | 2016-12-21 11:30 | NUR ---
ICU/RN - Notes Levophed titrated up to maintain optimal blood pressure during hemodialysis.
[2016-12-21] MEDS: NOREPINEPHRINE 16 MG in IV D5W 500 ML IV PRN (13:30)
--- NOTE | 2016-12-21 15:15 | NUR ---
ICU/RN - Notes Hemodialysis completed with output of 4000 mL.
[2016-12-21] MEDS: RENAL NOVASOURCE 1,000 ML BOTTLE GT PRN ×2 (16:00→16:12)
[2016-12-21] MEDS: AMIODARONE 900 MG in IV D5W 482 ML IV PRN ×2 (18:15→18:19)
--- NOTE | 2016-12-21 19:22 | NUR ---
PATIENT REC'D TRACHED ON [facility] VENT WITH SETTINGS SET PER . VENT ALARMS CHECKED + AUDIBLE. CUFF PRESSURE CHECKED [employer]. TRACH SECURE AND IN PROPER POSITION. VENT PLUGGED INTO RED OUTLET. B/S DIM COARSE. SX'D WITH SM/ AMT PALE THICK SECRETIONS.AMBU BAG AT [facility]. Addendum: 12/21/16 at 1923 by CYNTHIA JIMÉNEZ RT Amended: Links added.
--- NOTE | 2016-12-21 19:30 | NUR ---
ICU/RN RECEIVED PT ON VENT PER TRACH.MONITOR SHOWS A-FIB W/ RVR.ON AMIODARONE DRIP AT 0.5MG/MIN.ON LEVOPHED DRIP AT6MCG/MIN.TOLERATING TF W/OUT RESIDUAL.
[2016-12-22] VITALS (98 sets, daily range): BP systolic 87–156; BP diastolic 41–80
[2016-12-22] MEDS: PROPOFOL 100 ML IV PRN ×4 (03:32→23:01)
[2016-12-22] MEDS ORDERED: IV NS 0.9% 500 ML IV ONE (03:56)
[2016-12-22] MEDS ORDERED: IV NS 0.9% 500 ML BAG IV PRN (04:00)
[2016-12-22] MEDS ORDERED: IV NS 0.9% 500 ML BAG IV ONE (04:00)
[2016-12-22] MEDS: METRONIDAZOLE 500MG/ NS 100ML 500 MG in PREMIX 1 EA IV SCH ×3 (04:26→21:03)
[2016-12-22 05:06] LABS: HEMATOCRIT 25 % (39-51); HEMOGLOBIN 8.9 g/dL (13.5-17.5); MEAN CORPUSCULAR HEMOGLOBIN 30 PG (26.0-33.0); MEAN CORPUSCULAR HGB CONC 36 g/dl (31.0-36.0); MEAN CORPUSCULAR VOLUME 83 fL (80-96); PLATELET COUNT (AUTO) 186 /CMM (150-450); RDW COEFFICIENT OF VARIATION 16.5 (11.5-15.0); RED BLOOD CELL COUNT(AUTO) 3.02 MIL/uL (4.5-6.0); WHITE BLOOD COUNT (AUTO) 20.4 K/uL (4.3-11.0)
[2016-12-22 05:12] LABS: CALCIUM, SERUM 6.1 mg/dL (8.5-10.1); CREATININE 2.9 mg/dL (0.6-1.3); PHOSPHORUS 4.1 mg/dL (2.5-4.9); POTASSIUM 3.9 mmol/L (3.5-5.1)
--- NOTE | 2016-12-22 06:00 | NUR ---
ICU/RN CONDITION UNCHANGED.MONITOR SHOWS NSR.REMAINS ON LEVOPHED DRIP AT 7MCG/MIN.DIPRIVAN AT 40MCG/KG/MIN.SUCTIONED FOR SCANT AMT BLOOD-TINGED SECRETIONS.
[2016-12-22] MEDS: METOCLOPRAMIDE HCL 10 MG/2 ML VIAL IV SCH ×4 (06:14→23:00)
[2016-12-22] MEDS: IV NS 0.9% 250 ML IV PRN (06:22)
[2016-12-22 08:55] LABS: ABG OXYGEN SATURATION 87.4 % (92.0-98.5); ABG PCO2 54.8 mmHg (35.0-45.0); ABG PH 7.346 (7.350-7.450); ABG PO2 60.4 mmHg (75.0-100.0); AaDO2 597.8 mmHg; COHb 1.9 % (0.5-1.5); MetHb 0.7 % (0.0-1.5); O2Hb 85.1 % (94.0-97.0); PEEP,BG 17 cm H2O; SITE, ABG Right Radial; VENT MODE, BG PCV 50
[2016-12-22] MEDS: DOCUSATE SODIUM LIQ 100 MG/10 ML UDC PO SCH (09:15)
[2016-12-22] MEDS: SEVELAMER CARBONATE 0.8 GM POWD.PACK GT SCH ×3 (09:17→17:09)
[2016-12-22] MEDS: LACTOBACILLUS RHAMNOSUS GG 1 EACH CAP.SPRINK GT SCH ×2 (09:17→16:41)
[2016-12-22] MEDS: MEROPENEM 500 MG in IV NS 0.9% 50 ML IV SCH ×2 (09:18→21:04)
[2016-12-22] MEDS: PANTOPRAZOLE 40 MG VIAL IV SCH (09:18)
[2016-12-22] MEDS: ASPIRIN 325 MG TABLET PO SCH (09:18)
[2016-12-22] MEDS: LINEZOLID RTU BAG 600 MG in PREMIX 1 EA IV SCH ×2 (09:18→21:04)
[2016-12-22] MEDS: HYDROGEN PEROXIDE 480 ML BOTTLE TP SCH (09:34)
[2016-12-22] MEDS: BACITRACIN ZINC OINT (15 GM) 15 GM TUBE TP SCH (09:35)
[2016-12-22] MEDS ORDERED: IV SET PRIMARY PUMP SET 1 EA INFUS.SET MC ONE (14:27)
[2016-12-22] MEDS ORDERED: SECONDARY IV SET 1 EA INFUS.SET MC ONE (14:28)
--- NOTE | 2016-12-22 19:47 | NUR ---
PT RECEIVED TRACHED ON MECHANICAL VENT W/ SETTINGS PER MD. VENT IN RED OUTLET, AMBUBAG AT BEDSIDE, VENT ALARMS CHECKED AND AUDIBLE. TRACH TUBE SECURE, PATENT. PT SX'ED AND LAVAGED PRN. NO RESP DISTRESS NOTED. PLAN IS TO CONTINUE CARE W/ CURRENT MD ORDERS AND MONITOR FOR CHANGES Addendum: 12/22/16 at 1947 by CYNTHIA JIMÉNEZ RT Amended: Links added.
--- NOTE | 2016-12-22 20:00 | NUR ---
ASSISTANT DIRECTOR DF RECEIVED PT TO ROOM #257 NEURO STATUS PT OBTUNDED DOES NOT FOLLOW COMMANDS,FLACCID BUE/BLE. PUPILS SLUGGISH AT 2MM WITHDRAWS TO DEEP STIMULI ONLY(THIS HAS BEEN REPORTED HAS PT,S BASELINE NEURO STATUS)PT ON CONTINUOUS AMIODARONE GTT @ 0.5 MG/HR IV CURRENT RHYTHM OF NSR @ 78BPM, PT WITH HX AFIB. HYPOTENSIVE ON LEVOPHED GTT AT 10MCG/MIN IV BP OF 98/53. PITTING EDEMA BUE/BLE/GENERAL SCROTAL EDEMA. RIGHT UPPER PICC WITH CVP MONITORING CVP OF 16.PT WITH TRACH WITH VENT SETTINGS OF HIGH PEEP@17 AND FIO2 @100% CURRENT O2 SAT OF 94-95%.TOLERATING TUBE FEEDING MIN RESIDUALS NOTED. VSS.NAD NOTED.
--- NOTE | 2016-12-22 22:07 | NUR ---
CEMENTER DF PT FAMILY AT BEDSIDE UPDATED REGARDING POC.
[2016-12-22] MEDS: AMIODARONE 900 MG in IV D5W 482 ML IV PRN (23:02)
[2016-12-23] VITALS (106 sets, daily range): BP systolic 84–148; BP diastolic 44–82
[2016-12-23] MEDS ORDERED: IV SET PRIMARY PUMP SET 1 EA INFUS.SET MC ONE ×2 (02:42→18:33)
[2016-12-23] MEDS: NOREPINEPHRINE 16 MG in IV D5W 500 ML IV PRN ×2 (03:09→18:38)
[2016-12-23] MEDS: PROPOFOL 100 ML IV PRN ×6 (03:11→23:15)
[2016-12-23] MEDS: RENAL NOVASOURCE 1,000 ML BOTTLE GT PRN (03:12)
[2016-12-23 04:37] LABS: HEMATOCRIT 26 % (39-51); HEMOGLOBIN 8.8 g/dL (13.5-17.5); MEAN CORPUSCULAR HEMOGLOBIN 29 PG (26.0-33.0); MEAN CORPUSCULAR HGB CONC 35 g/dl (31.0-36.0); MEAN CORPUSCULAR VOLUME 84 fL (80-96); PLATELET COUNT (AUTO) 141 /CMM (150-450); RDW COEFFICIENT OF VARIATION 16.8 (11.5-15.0); RED BLOOD CELL COUNT(AUTO) 3.05 MIL/uL (4.5-6.0); WHITE BLOOD COUNT (AUTO) 19.7 K/uL (4.3-11.0)
[2016-12-23 04:49] LABS: CALCIUM, SERUM 6.6 mg/dL (8.5-10.1); CREATININE 3.3 mg/dL (0.6-1.3); MAGNESIUM 1.9 mg/dL (1.8-2.4); PHOSPHORUS 5.1 mg/dL (2.5-4.9); POTASSIUM 4.5 mmol/L (3.5-5.1)
[2016-12-23] MEDS: METRONIDAZOLE 500MG/ NS 100ML 500 MG in PREMIX 1 EA IV SCH ×3 (04:53→20:37)
--- NOTE | 2016-12-23 04:54 | NUR ---
OFFICE ADMINISTRATIVE ASSISTANT DF PT WITH DESATURATION 65-75% POST AM CARE/REPOSITIONING PT ON HIGH LEVEL PEEP OF 17/FIO2 @100% PT NOTED WITH SEVERE ARDS.CYNTHIA RT AT BEDSIDE.PT ON MAX VENT SUPPORT WITH POOR PROGNOSIS PER H&P NOTES OF DR ZAMORA 12/22. PT DNR CODE STATUS.FAMILY AWARE OF POOR PROGNOSIS. I WILL CONTACT FAMILY IF PT CONDITION CONTINUES TO DECLINE. Addendum: 12/23/16 at 0512 by CHIVO DALEY RN O2 SAT INCREASE TO 91%
[2016-12-23] MEDS: METOCLOPRAMIDE HCL 10 MG/2 ML VIAL IV SCH ×3 (05:15→17:24)
--- NOTE | 2016-12-23 05:23 | NUR ---
ALLERGIST/IMMUNOLOGIST DF BP OF 148/68 LEVOPHED TITRATED TO 7MCG/MIN.
[2016-12-23] MEDS: DOCUSATE SODIUM LIQ 100 MG/10 ML UDC PO SCH (07:59)
[2016-12-23] MEDS: LACTOBACILLUS RHAMNOSUS GG 1 EACH CAP.SPRINK GT SCH ×2 (08:00→17:24)
[2016-12-23] MEDS: PANTOPRAZOLE 40 MG VIAL IV SCH (08:00)
[2016-12-23] MEDS: MEROPENEM 500 MG in IV NS 0.9% 50 ML IV SCH ×2 (08:00→20:37)
[2016-12-23] MEDS: ASPIRIN 325 MG TABLET PO SCH (08:00)
[2016-12-23] MEDS: SEVELAMER CARBONATE 0.8 GM POWD.PACK GT SCH ×3 (08:00→17:24)
[2016-12-23] MEDS: HYDROGEN PEROXIDE 480 ML BOTTLE TP SCH (08:02)
[2016-12-23] MEDS: BACITRACIN ZINC OINT (15 GM) 15 GM TUBE TP SCH (08:02)
[2016-12-23] MEDS ORDERED: SECONDARY IV SET 1 EA INFUS.SET MC ONE (08:05)
[2016-12-23] MEDS: LINEZOLID RTU BAG 600 MG in PREMIX 1 EA IV SCH ×2 (09:11→20:38)
[2016-12-23] MEDS: AMIODARONE HCL 200 MG TABLET PO SCH ×2 (09:11→20:39)
[2016-12-23 09:42] LABS: ABG BASE EXCESS -0.6 mmol/L; ABG OXYGEN SATURATION 81.9 % (92.0-98.5); ABG PCO2 60.6 mmHg (35.0-45.0); ABG PH 7.265 (7.350-7.450); ABG PO2 52.6 mmHg (75.0-100.0); AaDO2 599.8 mmHg; COHb 1.8 % (0.5-1.5); O2Hb 79.6 % (94.0-97.0); PEEP,BG 17 cm H2O; SITE, ABG Right Radial; VENT MODE, BG P/C 50
--- NOTE | 2016-12-23 10:17 | NUR ---
VENT CHANGES MADE RADAMES LOVELACE: PC 53 Addendum: 12/23/16 at 1017 by RICCI MATHEW RT Amended: Links added.
--- NOTE | 2016-12-23 19:21 | NUR ---
pattern molder patient residual is high, held feeding tube vent changes done by RT on duty maintained on levophed drip endorsed to nod
--- NOTE | 2016-12-23 23:15 | NUR ---
NETWORK SUPPORT SPECIALIST DF LEVOPHED TITRATED TO 10MCG/MIN BP OF 88/45,90/52 SEE IV SPREADSHEET FOR TITRATION INFO.
[2016-12-24] VITALS (94 sets, daily range): BP systolic 90–152; BP diastolic 47–79
[2016-12-24] MEDS: METOCLOPRAMIDE HCL 10 MG/2 ML VIAL IV SCH ×4 (00:02→17:25)
[2016-12-24] MEDS ORDERED: PROPOFOL 100 ML IV ONE (03:07)
[2016-12-24] MEDS ORDERED: IV NS 0.9% 250 ML IV ONE (03:54)
[2016-12-24] MEDS ORDERED: IV SET PRIMARY PUMP SET 1 EA INFUS.SET MC ONE ×2 (03:54→09:16)
--- NOTE | 2016-12-24 05:15 | NUR ---
PART MAKER DF TUBE FEEDINGS HELD THROUGHOUT SHIFT 2ND TO INCREASED RESIDUALS OF CLEAR/STRAW COLORED FLUID MD AWARE.RESIDUALS AMOUNT OF 200-225.
[2016-12-24 05:22] LABS: HEMATOCRIT 25 % (39-51); HEMOGLOBIN 8.1 g/dL (13.5-17.5); MEAN CORPUSCULAR HEMOGLOBIN 28 PG (26.0-33.0); MEAN CORPUSCULAR HGB CONC 33 g/dl (31.0-36.0); MEAN CORPUSCULAR VOLUME 84 fL (80-96); PLATELET COUNT (AUTO) 101 /CMM (150-450); RED BLOOD CELL COUNT(AUTO) 2.93 MIL/uL (4.5-6.0); WHITE BLOOD COUNT (AUTO) 16.5 K/uL (4.3-11.0)
[2016-12-24] MEDS: METRONIDAZOLE 500MG/ NS 100ML 500 MG in PREMIX 1 EA IV SCH ×3 (05:35→20:20)
[2016-12-24 05:52] LABS: BILIRUBIN,DIRECT 0.4 mg/dL (0.0-0.2); BILIRUBIN,TOTAL 0.8 mg/dL (0.2-1.0); CALCIUM, SERUM 7.9 mg/dL (8.5-10.1); CREATININE 3.1 mg/dL (0.6-1.3); MAGNESIUM 2.1 mg/dL (1.8-2.4); PHOSPHORUS 4.5 mg/dL (2.5-4.9); POTASSIUM 4.2 mmol/L (3.5-5.1); TOTAL PROTEIN, SERUM 6.6 g/dL (6.4-8.2)
--- NOTE | 2016-12-24 08:00 | NUR ---
PATIENT REC'D TRACHED ON [facility] VENT WITH SETTINGS SET PER . VENT ALARMS CHECKED + AUDIBLE. CUFF PRESSURE CHECKED TATTOO IDENTIFIER. TRACH SECURE AND IN PROPER POSITION. VENT PLUGGED INTO RED OUTLET. B/S DIM COARSE. SX'D WITH SM/MD LUBINT PALE SEMITHICK SECRETIONS. PATIENT IN CRITICAL CONDITION. AMBU BAG AT [facility]. CONT CURRENT PLAN OF RESP CARE. Addendum: 12/25/16 at 0749 by ANNA CHENG RT Amended: Links added.
[2016-12-24] MEDS: MEROPENEM 500 MG in IV NS 0.9% 50 ML IV SCH ×2 (08:05→20:20)
[2016-12-24] MEDS: PANTOPRAZOLE 40 MG VIAL IV SCH (08:05)
[2016-12-24] MEDS: DOCUSATE SODIUM LIQ 100 MG/10 ML UDC PO SCH (08:05)
[2016-12-24] MEDS: AMIODARONE HCL 200 MG TABLET PO SCH ×2 (08:06→20:17)
[2016-12-24] MEDS: SEVELAMER CARBONATE 0.8 GM POWD.PACK GT SCH ×3 (08:06→17:25)
[2016-12-24] MEDS: ASPIRIN 325 MG TABLET PO SCH (08:07)
[2016-12-24] MEDS: Z GUARD REMEDY 2 OZ OINT TP PRN (08:07)
[2016-12-24] MEDS: LACTOBACILLUS RHAMNOSUS GG 1 EACH CAP.SPRINK GT SCH ×2 (08:07→17:25)
[2016-12-24] MEDS: HYDROGEN PEROXIDE 480 ML BOTTLE TP SCH (08:08)
[2016-12-24] MEDS: BACITRACIN ZINC OINT (15 GM) 15 GM TUBE TP SCH (08:09)
[2016-12-24] MEDS: LINEZOLID RTU BAG 600 MG in PREMIX 1 EA IV SCH ×2 (09:05→20:27)
[2016-12-24 10:21] LABS: ABG BASE EXCESS -1.5 mmol/L; ABG OXYGEN SATURATION 77.8 % (92.0-98.5); ABG PCO2 48.2 mmHg (35.0-45.0); ABG PH 7.326 (7.350-7.450); ABG PO2 46.7 mmHg (75.0-100.0); AaDO2 618.1 mmHg; MetHb 0.5 % (0.0-1.5); O2Hb 75.9 % (94.0-97.0); PEEP,BG 17 cm H2O; SITE, ABG Right Radial
--- NOTE | 2016-12-24 13:01 | NUR ---
ASTRONOMY PROFESSOR PATIENT CONVERTED TO ATRIAL FIBRILLATION AT 120'S STILL OBTUNDED RESTARTED LEVOPHED EARLIER FOR BP SUPPORT DURING DIALYSIS MONITORED BLOOD PRESSURE CLOSELY MAINTAINED ON NPO DUE TO HIGH RESIDUALS
--- NOTE | 2016-12-24 14:00 | NUR ---
STORE STOCK HELP PATIENT CONVERTED TO SINUS RHYTHM SBP BETWEEN 90'S TO 100'S SUCTIONED SECRETION PRN
[2016-12-24] MEDS: MORPHINE SULFATE INJ 2 MG/ML DISP.SYRIN IV PRN (20:16)
--- NOTE | 2016-12-24 20:30 | NUR ---
RN NOTES RECEIVED PT HR >130 BPM WITH RR 32 SATURATION 92% SUCTIONED PT MODERATE AMT OF THICK YELLOW WITH BLOOD SECRETION PAIN MEDICINE GIVEN WELL DUE MEDICINE INCLUDING AMIODARONE TABLET. PT HR STARTED TO CALM DOWN AFTER 15MINUTES TO 90'S.PT IS RESTING AT THIS TIME. GTF WAS HELD DUE TO HIGH RESIDUAL.F/C DRAINED WELL VIA GRAVITY WILL CLOSELY MONITORED PATIENT.
--- NOTE | 2016-12-24 23:00 | NUR ---
RN NOTES RECHECKED PATENCY OF GT INTACT AND PATENT WITH GURGLING SOUND HEARD, WITH ZERO RESIDUAL CONTINUE GTF ORDERED WILL CONTINUE TO MONITOR
[2016-12-25] VITALS (69 sets, daily range): BP systolic 69–134; BP diastolic 45–70
[2016-12-25] MEDS: METOCLOPRAMIDE HCL 10 MG/2 ML VIAL IV SCH ×5 (00:13→23:56)
[2016-12-25] MEDS: LORAZEPAM INJ 2 MG/ML VIAL IV PRN ×2 (01:09→15:26)
[2016-12-25] MEDS: MORPHINE SULFATE INJ 2 MG/ML DISP.SYRIN IV PRN ×2 (01:15→18:11)
[2016-12-25] MEDS: METRONIDAZOLE 500MG/ NS 100ML 500 MG in PREMIX 1 EA IV SCH ×2 (04:53→12:20)
[2016-12-25 04:59] LABS: BASOPHILS % (AUTO) 0.1 % (0.0-2.0); EOSINOPHILS % (AUTO) 0.1 % (0.0-6.0); HEMATOCRIT 22 % (39-51); HEMOGLOBIN 7.3 g/dL (13.5-17.5); LYMPHOCYTES # (AUTO) 0.8 /CMM (0.8-4.8); LYMPHOCYTES % (AUTO) 6.2 % (20.0-44.0); MEAN CORPUSCULAR HEMOGLOBIN 28 PG (26.0-33.0); MEAN CORPUSCULAR HGB CONC 33 g/dl (31.0-36.0); MEAN CORPUSCULAR VOLUME 84 fL (80-96); MONOCYTES # (AUTO) 0.4 /CMM (0.1-1.30); MONOCYTES % (AUTO) 2.9 % (2.0-12.0); NEUTROPHILS # (AUTO) 12.1 /CMM (1.8-8.9); NEUTROPHILS % (AUTO) 90.7 % (43.0-81.0); PLATELET COUNT (AUTO) 78 /CMM (150-450); RDW COEFFICIENT OF VARIATION 16.3 (11.5-15.0); RED BLOOD CELL COUNT(AUTO) 2.64 MIL/uL (4.5-6.0); WHITE BLOOD COUNT (AUTO) 13.4 K/uL (4.3-11.0)
[2016-12-25 05:16] LABS: CREATININE 3.1 mg/dL (0.6-1.3); PHOSPHORUS 5.1 mg/dL (2.5-4.9); POTASSIUM 4.6 mmol/L (3.5-5.1)
--- NOTE | 2016-12-25 06:32 | NUR ---
RN NOTES PT CONDITION IS UNSTABLE CLOSELY MONITOR PROVIDED. PT SBP CONTROLLED BETWEEN 88- 100'S WITHOUT ANY PRESSOR SATURATION DROPPED TO 80'S SOMETIME BUT COMES UP UNTIL 96% PAIN MEDICINE EFFECTIVE DURING LABORED BREATHING WHEN NEEDED. ALL DUE MEDICINE TOLERATED WELL. BED BATH AND PHOTO TAKEN RENDERED. KEPT PT CLEAN AND COMFORTABLE IN BED. WILL ENDORSED CONTINUITY OF CARE TO AM NURSE.
[2016-12-25] MEDS: RENAL NOVASOURCE 1,000 ML BOTTLE GT PRN ×2 (06:42→17:13)
--- NOTE | 2016-12-25 07:00 | NUR ---
ICU INITIAL NOTES RECEIVED PT IN BED, OBTUNDED, DOES NOT FOLLOW COMMANDS, UNABLE TO MAKE NEEDS KNOWN, PT IS ON BEDSIDE MONITOR SHOWING SR @ 95 BPM, NO S/S OF CHEST PAIN OR DISCOMFORT AT THIS TIME, [facility] #8 XLT, AC 28 PRESSURE SUPPORT 54 FIO2 100% PEEP 18, SATING 80'S, PT SUCTIONED, PT HAS F/C DRAINING DARK URINE W/ BLOOD, PT HAS MULTIPLE SKIN TEARS, WOUND TREATMENTS IN PLACE, PT HAS GTUBE, RUNNING NOVASOURCE @ 35ML/HR, TOLERATING WELL, NO RESIDUALS NOTED AT THIS TIME, PT HAS MARIANNE PICC, SL, C/D/I/PATENT, FLUSHING WELL, WITH GOOD BLOOD RETURN. R FEMORAL NARESH CATHETER, DRESSING INTACT/CLEAN AND DRY, ALL SAFETY MEASURES IN PLACE AT ALL TIMES, CALL LIGHT WITHIN EASY REACH, ALL NEEDS MET AT THIS TIME, WILL CLOSELY MONITOR PT.
--- NOTE | 2016-12-25 07:48 | NUR ---
PATIENT REC'D TRACHED ON [facility] VENT WITH SETTINGS SET PER . VENT ALARMS CHECKED + AUDIBLE. CUFF PRESSURE CHECKED FINGERER. TRACH SECURE AND IN PROPER POSITION. VENT PLUGGED INTO RED OUTLET. B/S DIM COARSE. SX'D WITH SM AMT PALE SEMITHICK SECRETIONS. PATIENT IN CRITICAL CONDITION. AMBU BAG AT [facility]. CONT CURRENT PLAN OF RESP CARE. Addendum: 12/25/16 at 0749 by ANNA CHENG RT Amended: Links added.
--- NOTE | 2016-12-25 08:00 | NUR ---
ICU NOTES MADE ROUNDS, AWARE OF ALL LABS AND O2 SATURATION. ALL NEW ORDERS ACK, WILL MONITOR CLOSELY
[2016-12-25] MEDS: LINEZOLID RTU BAG 600 MG in PREMIX 1 EA IV SCH (08:21)
[2016-12-25] MEDS: SEVELAMER CARBONATE 0.8 GM POWD.PACK GT SCH ×3 (08:21→17:13)
[2016-12-25] MEDS: PANTOPRAZOLE 40 MG VIAL IV SCH (08:21)
[2016-12-25] MEDS: MEROPENEM 500 MG in IV NS 0.9% 50 ML IV SCH ×2 (08:21→20:32)
[2016-12-25] MEDS: ASPIRIN 325 MG TABLET PO SCH (08:21)
[2016-12-25] MEDS: LACTOBACILLUS RHAMNOSUS GG 1 EACH CAP.SPRINK GT SCH ×2 (08:21→17:13)
[2016-12-25] MEDS: DOCUSATE SODIUM LIQ 100 MG/10 ML UDC PO SCH (08:21)
[2016-12-25] MEDS: BACITRACIN ZINC OINT (15 GM) 15 GM TUBE TP SCH (08:22)
[2016-12-25] MEDS: AMIODARONE HCL 200 MG TABLET PO SCH ×2 (08:22→20:32)
[2016-12-25] MEDS: HYDROGEN PEROXIDE 480 ML BOTTLE TP SCH (08:23)
[2016-12-25] MEDS ORDERED: IV SET PRIMARY PUMP SET 1 EA INFUS.SET MC ONE ×3 (08:24→20:13)
[2016-12-25 08:28] LABS: BAND % (MANUAL) 9 % (0.0-5.0); LYMPHOCYTES % (MANUAL) 6 % (16-48); MONOCYTES % (MANUAL) 6 % (0-11.0); NEUTROPHILS % (MANUAL) 79 (42-76)
[2016-12-25 09:03] LABS: ABG BASE EXCESS -2.8 mmol/L; ABG OXYGEN SATURATION 77.6 % (92.0-98.5); ABG PCO2 40.1 mmHg (35.0-45.0); ABG PH 7.364 (7.350-7.450); ABG PO2 45.9 mmHg (75.0-100.0); COHb 2.9 % (0.5-1.5); MetHb 0.6 % (0.0-1.5); O2Hb 74.9 % (94.0-97.0); PEEP,BG 18 cm H2O; SITE, ABG Right Radial; VENT MODE, BG PC54
--- NOTE | 2016-12-25 09:30 | NUR ---
ICU NOTES PT IS CURRENTLY RECEIVING HD AT THIS TIME, ZYVOX PUT ON HOLD AT THIS TIME, WILL RESTART ONCE HD HAS FINISHED
[2016-12-25] MEDS: NOREPINEPHRINE 16 MG in IV D5W 500 ML IV PRN (10:04)
[2016-12-25] MEDS ORDERED: EPOETIN ALFA (10,000 UNIT) 10,000 UNIT/ML VIAL SQ ONE (10:30)
--- NOTE | 2016-12-25 11:36 | NUR ---
ICU NOTES HD COMPLETED, 2L REMOVED, PT REMAINS ON LEVO @4MCG/MIN AT THIS TIME, WILL MONITOR CLOSELY
--- NOTE | 2016-12-25 12:00 | NUR ---
ICU NOTES PER DR. LOVELACE, PT WAS PLACED ON THE FOLLOWING VENT SETTINGS, APRV MODE, P HIGH 50, T HIGH 4 SECONDS, T LOW 0.7 SECONDS, FIO2 100%, PT O2 SATURATION 98%, NO S/S OF RESP.DISTRESS NOTED, WILL MONITOR PT CLOSELY FOR CHANGES
--- NOTE | 2016-12-25 12:00 | NUR ---
ICU NOTES PT IS UNABLE TO BE TURNED AND REPOSITIONED, PT VERY UNSTABLE, PT IS ON HIGH PRESSURE VENT SETTINGS, ONGOING MONITORING, HR 140'S, WILL MONITOR CLOSELY
[2016-12-25 12:09] LABS: ABG BASE EXCESS 0.1 mmol/L; ABG OXYGEN SATURATION 89.6 % (92.0-98.5); ABG PCO2 54.1 mmHg (35.0-45.0); ABG PO2 68.7 mmHg (75.0-100.0); AaDO2 590.2 mmHg; COHb 3.6 % (0.5-1.5); MetHb 0.4 % (0.0-1.5); SITE, ABG Right Radial
[2016-12-25] MEDS: IV NS 0.9% 250 ML IV PRN (13:16)
[2016-12-25] MEDS ORDERED: FEE PK DOSING 1 MIN EA MC ONE (14:36)
[2016-12-25] MEDS ORDERED: VANCOMYCIN 1 GM in IV D5W 250 ML IV ONE (15:00)
[2016-12-25] MEDS: Z GUARD REMEDY 2 OZ OINT TP PRN (15:38)
--- NOTE | 2016-12-25 18:20 | NUR ---
ICU NOTES ALL TREATMENTS CARRIED OUT, FAMILY AT BEDSIDE, ALL MEDICATIONS AND ORDERS CARRIED OUT. PT IS STILL UNSTABLE TO TURN, PT'S HR IN 140/S, HIGH PRESSURE SUPPORT.
--- NOTE | 2016-12-25 21:05 | NUR ---
PT RECEIVED VENT TRACHED ON NOTED SETTINGS. SX'D FOR SML AMT OF THICK SECRETIONS. VENT ALARMS SET AND AUDIBLE, TRACH CUFF CHECKED RN PERINATAL. DM BREATH SOUND. VENT PLUGGED INTO RED OUTLET. AMBU BAG AT [facility]. WILL CONTINUE TO MONITOR. Addendum: 12/25/16 at 2107 by LIZ QUIÑONES RT Amended: Links added.
[2016-12-26] VITALS (96 sets, daily range): BP systolic 67–144; BP diastolic 41–82
[2016-12-26] MEDS: NOREPINEPHRINE 16 MG in IV D5W 500 ML IV PRN (02:52)
--- NOTE | 2016-12-26 03:00 | NUR ---
ICU/RN- HR ELEVATED TO 150'S. STARTED PT ON LEVOPHED 2MCG/MIN FOR PROPHYLAXIS FOR HYPOTENSION BEFORE ADMINISTERING CARDIZEM 10MG IVP PRN FOR HR >110. WILL TITRATE LEVOPHED PER PROTOCOL. CARDIZEM 10 MG GIVEN IVP. TOLERATED WELL. NO ADVERSE REACTION NOTED.
[2016-12-26] MEDS: DILTIAZEM HCL 50 MG IV IV PRN (03:04)
[2016-12-26 04:54] LABS: HEMATOCRIT 23 % (39-51); HEMOGLOBIN 7.6 g/dL (13.5-17.5); MEAN CORPUSCULAR HEMOGLOBIN 28 PG (26.0-33.0); MEAN CORPUSCULAR HGB CONC 33 g/dl (31.0-36.0); MEAN CORPUSCULAR VOLUME 85 fL (80-96); PLATELET COUNT (AUTO) 92 /CMM (150-450); RDW COEFFICIENT OF VARIATION 16.7 (11.5-15.0); RED BLOOD CELL COUNT(AUTO) 2.68 MIL/uL (4.5-6.0); WHITE BLOOD COUNT (AUTO) 14.9 K/uL (4.3-11.0)
[2016-12-26] MEDS: METOCLOPRAMIDE HCL 10 MG/2 ML VIAL IV SCH ×3 (05:07→17:19)
[2016-12-26 05:15] LABS: CALCIUM, SERUM 7.9 mg/dL (8.5-10.1); CREATININE 3.1 mg/dL (0.6-1.3); MAGNESIUM 2.1 mg/dL (1.8-2.4); PHOSPHORUS 5.2 mg/dL (2.5-4.9); POTASSIUM 4.9 mmol/L (3.5-5.1)
[2016-12-26 06:01] LABS: BAND % (MANUAL) 2 % (0.0-5.0); LYMPHOCYTES % (MANUAL) 1 % (16-48); METAMYELOCYTES % 1 % (0-0); MONOCYTES % (MANUAL) 3 % (0-11.0); NEUTROPHILS % (MANUAL) 93 (42-76)
[2016-12-26] MEDS: DOCUSATE SODIUM LIQ 100 MG/10 ML UDC PO SCH (08:27)
[2016-12-26] MEDS: AMIODARONE HCL 200 MG TABLET PO SCH ×2 (08:27→21:34)
[2016-12-26] MEDS: MEROPENEM 500 MG in IV NS 0.9% 50 ML IV SCH ×2 (08:27→21:32)
[2016-12-26] MEDS: ASPIRIN 325 MG TABLET PO SCH (08:27)
[2016-12-26] MEDS: LACTOBACILLUS RHAMNOSUS GG 1 EACH CAP.SPRINK GT SCH ×2 (08:27→17:19)
[2016-12-26] MEDS: BACITRACIN ZINC OINT (15 GM) 15 GM TUBE TP SCH (08:28)
[2016-12-26] MEDS: SEVELAMER CARBONATE 0.8 GM POWD.PACK GT SCH ×3 (08:28→17:20)
[2016-12-26] MEDS: HYDROGEN PEROXIDE 480 ML BOTTLE TP SCH (08:28)
[2016-12-26] MEDS: PANTOPRAZOLE 40 MG VIAL IV SCH (08:28)
[2016-12-26] MEDS: PROSOURCE / PROSTAT (PYXIS) 30 ML UDC GT SCH (08:31)
[2016-12-26] MEDS ORDERED: AMIODARONE 150 MG in IV D5W 100 ML IV ONE (09:00)
[2016-12-26 09:08] LABS: ABG BASE EXCESS -2.9 mmol/L; ABG OXYGEN SATURATION 93.8 % (92.0-98.5); ABG PCO2 49.2 mmHg (35.0-45.0); ABG PH 7.296 (7.350-7.450); ABG PO2 82.9 mmHg (75.0-100.0); AaDO2 580.9 mmHg; COHb 2.2 % (0.5-1.5); MetHb 0.8 % (0.0-1.5); SITE, ABG Right Radial
[2016-12-26] MEDS ORDERED: IV SET PRIMARY PUMP SET 1 EA INFUS.SET MC ONE (09:25)
[2016-12-26] MEDS ORDERED: DIGOXIN INJ 0.5 MG/2 ML AMPUL IV ONE (09:30)
--- NOTE | 2016-12-26 10:28 | NUR ---
RECREATIONAL SPECIALIST NOTE 0720: Received patient obtunded. With trache to vent, tolerated settings at this time, on APRV peak 50 T low 0.7, T high 4, FIO2 100%, O2 sat at this time, 98%. With eyes open but does not follow commands. Afib 120-140's on the monitor. Will continue to monitor and review meds. Per previous shift, Cardizem IVP given and restarted on Levophed. On Levophed @ 3mcg at this time, will titrate as ordered. With MARIANNE PICC intact. With [place] cath intact, noted with very minimal tea colored urine drained to BSD. Right femoral HD cath intact. GT intact, feeding tolerated, no residuals noted at this time. 0900: S/E by Dr. Tavera, said not to give Cardizem at this time, ordered Amio bolus and Digoxin. 0910: S/E by Becki MIX, family at bedside, discussed re: the POC, with orders of labs for tomorrow. 0930: S/E by Dr. Katie MD aware for the ABG. discussed re: the POC with family at bedside. 1040: Still Afib 110-120's, will continue to monitor.
[2016-12-26] MEDS ORDERED: VANCOMYCIN 500 MG in IV D5W 100 ML IV PRN (15:00)
[2016-12-26] MEDS: RENAL NOVASOURCE 1,000 ML BOTTLE GT PRN (17:20)
--- NOTE | 2016-12-26 23:41 | NUR ---
PT RECEIVED VENT TRACHED ON NOTED SETTINGS. SX'D FOR SML AMT OF THICK SECRETIONS. VENT ALARMS SET AND AUDIBLE, TRACH CUFF CHECKED COTTON BROKER. DM BREATH SOUND. VENT PLUGGED INTO RED OUTLET. AMBU BAG AT [facility]. WILL CONTINUE TO MONITOR. Addendum: 12/26/16 at 2342 by LIZ QUIÑONES RT Amended: Links added.
[2016-12-27] VITALS (42 sets, daily range): BP systolic 84–121; BP diastolic 48–72
[2016-12-27] MEDS: METOCLOPRAMIDE HCL 10 MG/2 ML VIAL IV SCH ×4 (00:53→17:04)
[2016-12-27 05:25] LABS: BASOPHILS % (AUTO) 0.2 % (0.0-2.0); EOSINOPHILS % (AUTO) 0.3 % (0.0-6.0); HEMATOCRIT 22 % (39-51); HEMOGLOBIN 7.1 g/dL (13.5-17.5); LYMPHOCYTES # (AUTO) 1.2 /CMM (0.8-4.8); LYMPHOCYTES % (AUTO) 9.2 % (20.0-44.0); MEAN CORPUSCULAR HEMOGLOBIN 28 PG (26.0-33.0); MEAN CORPUSCULAR HGB CONC 33 g/dl (31.0-36.0); MEAN CORPUSCULAR VOLUME 85 fL (80-96); MONOCYTES # (AUTO) 0.5 /CMM (0.1-1.30); MONOCYTES % (AUTO) 4.2 % (2.0-12.0); NEUTROPHILS # (AUTO) 11.2 /CMM (1.8-8.9); NEUTROPHILS % (AUTO) 86.1 % (43.0-81.0); PLATELET COUNT (AUTO) 79 /CMM (150-450); RDW COEFFICIENT OF VARIATION 17.1 (11.5-15.0); RED BLOOD CELL COUNT(AUTO) 2.58 MIL/uL (4.5-6.0); WHITE BLOOD COUNT (AUTO) 13.1 K/uL (4.3-11.0)
[2016-12-27 05:26] LABS: CALCIUM, SERUM 7.7 mg/dL (8.5-10.1); CREATININE 3.7 mg/dL (0.6-1.3); MAGNESIUM 2.2 mg/dL (1.8-2.4); PHOSPHORUS 5.4 mg/dL (2.5-4.9); POTASSIUM 4.9 mmol/L (3.5-5.1)
[2016-12-27 05:46] LABS: EOSINOPHILS % (MANUAL) 1 % (0-4); LYMPHOCYTES % (MANUAL) 6 % (16-48); MONOCYTES % (MANUAL) 4 % (0-11.0); NEUTROPHILS % (MANUAL) 89 (42-76)
--- NOTE | 2016-12-27 07:23 | NUR ---
PATIENT REC'D TRACHED ON [facility] VENT WITH SETTINGS SET PER . VENT ALARMS CHECKED + AUDIBLE. CUFF PRESSURE CHECKED HR GENERALIST. TRACH SECURE AND IN PROPER POSITION. VENT PLUGGED INTO RED OUTLET. B/S DIM COARSE. SX'D WITH SM AMT PALE SEMITHICK SECRETIONS. PATIENT IN CRITICAL CONDITION. AMBU BAG AT [facility]. CONT CURRENT PLAN OF RESP CARE. Addendum: 12/27/16 at 1445 by ANNA CHENG RT Amended: Links added.
--- NOTE | 2016-12-27 08:21 | NUR ---
WOUND CARE CONSULT: PT SEEN FOR SKIN TEARS TO RT UPPER EXTREMITY, LEFT EAR DISCOLORATION WITH DEEP TISSUE INJURY (INTACT) AND PROFOUND GENERALIZED EDEMA INCLUDING PENIS AND SCROTUM WITH OPEN AREAS. PT NOTED TO HAVE MULTIPLE CO-MORBIDITIES INCLUDING RESPIRATORY FAILURE, RENAL FAILURE, SEPTIC SHOCK AND ARDS. DEFER TO MD FOR PENIS OPEN AREAS WITH EDEMA. PT ON FIRST STEP MATTRESS. ALL SKIN PROTECTION MEASURES IN PLACE. DISCUSSED WITH NURSING STAFF. MD IN AGREEMENT WITH PLAN OF CARE. Addendum: 12/27/16 at 0824 by IAIN JASSO WNDNU Amended: Links added.
[2016-12-27] MEDS: AMIODARONE HCL 200 MG TABLET PO SCH (08:29)
[2016-12-27] MEDS: ASPIRIN 325 MG TABLET PO SCH (08:29)
[2016-12-27] MEDS: DOCUSATE SODIUM LIQ 100 MG/10 ML UDC PO SCH (08:29)
[2016-12-27] MEDS: MEROPENEM 500 MG in IV NS 0.9% 50 ML IV SCH ×2 (08:29→20:38)
[2016-12-27] MEDS: LACTOBACILLUS RHAMNOSUS GG 1 EACH CAP.SPRINK GT SCH ×2 (08:29→17:04)
[2016-12-27] MEDS: PANTOPRAZOLE 40 MG VIAL IV SCH (08:29)
[2016-12-27] MEDS: SEVELAMER CARBONATE 0.8 GM POWD.PACK GT SCH ×3 (08:29→17:04)
[2016-12-27] MEDS: HYDROGEN PEROXIDE 480 ML BOTTLE TP SCH (08:30)
[2016-12-27] MEDS: BACITRACIN ZINC OINT (15 GM) 15 GM TUBE TP SCH (08:30)
[2016-12-27] MEDS: PROSOURCE / PROSTAT (PYXIS) 30 ML UDC GT SCH (08:31)
[2016-12-27] MEDS ORDERED: IV SET PRIMARY PUMP SET 1 EA INFUS.SET MC ONE (09:16)
[2016-12-27] MEDS: AMIODARONE 900 MG in IV D5W 482 ML IV SCH (09:21)
--- NOTE | 2016-12-27 09:32 | NUR ---
ELECTRON GUN ASSEMBLER NOTE 0745: Received patient HD ongoing, noted with Afib 140's on the monitor. With trache to vent, tolerated settings at this time. With GT intact, feeding tolerated well, no residuals noted. Kept HOB elevated. MARIANNE PICC intact. 0830: S/E by dr. Tavera, with order to start patient on Amio 0.5mg drip continues and MD Mckenzie Cardizem and Metoprolol PRN. 0920: Started on Amio drip, family at bedside, aware for the new order. Still Afib 130's at this time. 0930: S/E by Dr. Dolan, HD still ongoing. S/E by Becki MIX, awaiting for orders.
[2016-12-27 10:24] LABS: ABG BASE EXCESS -0.2 mmol/L; ABG OXYGEN SATURATION 94.3 % (92.0-98.5); ABG PCO2 49.9 mmHg (35.0-45.0); ABG PH 7.331 (7.350-7.450); ABG PO2 84.3 mmHg (75.0-100.0); AaDO2 506.3 mmHg; COHb 2.2 % (0.5-1.5); MetHb 0.7 % (0.0-1.5); O2Hb 91.6 % (94.0-97.0); SITE, ABG Right Radial
[2016-12-27] MEDS ORDERED: BLOOD IV SET 1 EA INFUS.SET MC ONE (11:29)
[2016-12-27] MEDS ORDERED: IV NS 0.9% 250 ML IV ONE (11:29)
[2016-12-27] MEDS ORDERED: VANCOMYCIN 1 GM in IV D5W 250 ML IV ONE (12:00)
[2016-12-27] MEDS: RENAL NOVASOURCE 1,000 ML BOTTLE GT PRN (18:09)
--- NOTE | 2016-12-27 18:33 | NUR ---
AMMUNITION ASSEMBLY I LABORER NOTE Stool OB positive, made Connell STAFF ANESTHETIST aware. Patient on Protonix 40IV daily and Reglan 5mg IV q6, no new order at this time.
--- NOTE | 2016-12-27 19:30 | NUR ---
RN INITIAL NOTES RECEIVED THE PATIENT OBTUNDED ON BED, OPENS EYES ONLY. ON VENT, MAURYLEY 8XLT, APRV, PEAK HIGH 45, 100% FIO2, HIGH TIME 4SEC, LOW TIME 0.7SEC, SATURATING > 95%, NO S/S OF RESP DISTRESS. CURRENTLY UNCONTROLLED AFIB ON THE MONITOR, HR 110-130'S, ON CONTINUOUS AMIO DRIP @ 0.5MG/MIN. PARRA CATH IS INTACT. ON GTUBE FEEDING OF NOVASOURCE @ 35MLS/HR, 25MLS RESIDUALS, WILL MONITOR. RIGHT FEMORAL HD CATH WITH PIGTAIL NOTED. RIGHT UPPER ARM PICC FLUSHED AND PATENT, NO S/S OF INFILTRATION/INFECTION, DRESSING CDI. BED LOW AND LOCKED, SIDERAILS UP. WILL MONITOR
[2016-12-28] VITALS (38 sets, daily range): BP systolic 86–136; BP diastolic 47–77
[2016-12-28] MEDS ORDERED: IV SET PRIMARY PUMP SET 1 EA INFUS.SET MC ONE (02:14)
[2016-12-28 04:51] LABS: BASOPHILS % (AUTO) 0.1 % (0.0-2.0); EOSINOPHILS # (AUTO) 0.1 /CMM (0.0-0.7); EOSINOPHILS % (AUTO) 0.9 % (0.0-6.0); HEMATOCRIT 27 % (39-51); HEMOGLOBIN 8.7 g/dL (13.5-17.5); LYMPHOCYTES # (AUTO) 2.3 /CMM (0.8-4.8); LYMPHOCYTES % (AUTO) 14.8 % (20.0-44.0); MEAN CORPUSCULAR HEMOGLOBIN 28 PG (26.0-33.0); MEAN CORPUSCULAR HGB CONC 33 g/dl (31.0-36.0); MEAN CORPUSCULAR VOLUME 86 fL (80-96); MONOCYTES # (AUTO) 0.4 /CMM (0.1-1.30); MONOCYTES % (AUTO) 2.6 % (2.0-12.0); NEUTROPHILS # (AUTO) 12.5 /CMM (1.8-8.9); NEUTROPHILS % (AUTO) 81.6 % (43.0-81.0); PLATELET COUNT (AUTO) 88 /CMM (150-450); RDW COEFFICIENT OF VARIATION 17.6 (11.5-15.0); RED BLOOD CELL COUNT(AUTO) 3.09 MIL/uL (4.5-6.0); WHITE BLOOD COUNT (AUTO) 15.3 K/uL (4.3-11.0)
[2016-12-28 05:11] LABS: CALCIUM, SERUM 7.8 mg/dL (8.5-10.1); CREATININE 3.6 mg/dL (0.6-1.3); MAGNESIUM 2.2 mg/dL (1.8-2.4); POTASSIUM 5.2 mmol/L (3.5-5.1)
[2016-12-28] MEDS: IV NS 0.9% 250 ML IV PRN (05:12)
[2016-12-28 05:23] LABS: BAND % (MANUAL) 2 % (0.0-5.0); EOSINOPHILS % (MANUAL) 1 % (0-4); LYMPHOCYTES % (MANUAL) 4 % (16-48); MONOCYTES % (MANUAL) 8 % (0-11.0); NEUTROPHILS % (MANUAL) 84 (42-76); REACTIVE LYMPHOCYTES 1 % (0-0)
--- NOTE | 2016-12-28 06:30 | NUR ---
RN CLOSING NOTES PT REMAINS STABLE OF THE MOMENT. ALL DUE MEDS GIVEN, AM CARE PROVIDED. WILL ENDORSE CONTINUITY OF CARE TO AM RN
--- NOTE | 2016-12-28 07:00 | NUR ---
ICU INITIAL NOTES RECEIVED PT IN BED, OBTUNDED, DOES NOT FOLLOW COMMANDS, UNABLE TO MAKE NEEDS KNOWN, PT IS ON BEDSIDE MONITOR SHOWING UNCONTROLLED AFIB @ 112 BPM, NO S/S OF CHEST PAIN OR DISCOMFORT AT THIS TIME, PT IS ON [facility] VENT SHILEY #8 XLT, APRV T HIGH 4 SECS T LOW 0.7 SECS, PEEP HIGH 45 FIO2 90%, SATURATION 92%, PT SUCTIONED, PT HAS F/C DRAINING MINIMAL DARK URINE , PT HAS MULTIPLE SKIN TEARS, WOUND TREATMENTS IN PLACE, PT HAS GTUBE, RUNNING NOVASOURCE @ 35ML/HR, TOLERATING WELL, NO RESIDUALS NOTED AT THIS TIME, PT HAS MARIANNE PICC, RUNNING AMIO @ 0.5MG/MIN, C/D/I/PATENT, FLUSHING WELL, NO GOOD BLOOD RETURN. R FEMORAL NARESH CATHETER, DRESSING INTACT/CLEAN AND DRY, ALL SAFETY MEASURES IN PLACE AT ALL TIMES, CALL LIGHT WITHIN EASY REACH, ALL NEEDS MET AT THIS TIME, WILL CLOSELY MONITOR PT.
[2016-12-28] MEDS ORDERED: SECONDARY IV SET 1 EA INFUS.SET MC ONE (07:59)
[2016-12-28] MEDS: MEROPENEM 500 MG in IV NS 0.9% 50 ML IV SCH ×2 (08:10→21:09)
[2016-12-28] MEDS: LACTOBACILLUS RHAMNOSUS GG 1 EACH CAP.SPRINK GT SCH ×2 (08:11→17:05)
[2016-12-28] MEDS: DOCUSATE SODIUM LIQ 100 MG/10 ML UDC PO SCH (08:11)
[2016-12-28] MEDS: PANTOPRAZOLE 40 MG VIAL IV SCH ×2 (08:11→17:05)
[2016-12-28] MEDS: SEVELAMER CARBONATE 0.8 GM POWD.PACK GT SCH ×3 (08:11→17:05)
[2016-12-28] MEDS: Z GUARD REMEDY 2 OZ OINT TP PRN (08:12)
[2016-12-28] MEDS: PROSOURCE / PROSTAT (PYXIS) 30 ML UDC GT SCH (08:12)
[2016-12-28] MEDS: BACITRACIN ZINC OINT (15 GM) 15 GM TUBE TP SCH (08:13)
[2016-12-28] MEDS: HYDROGEN PEROXIDE 480 ML BOTTLE TP SCH (08:13)
--- NOTE | 2016-12-28 08:40 | NUR ---
ICU NOTES DR. LOVELACE MADE ROUNDS, AWARE OF CURRENT LABS AND TEST RESULTS, NO NEW ORDERS AT THIS TIME.
[2016-12-28] MEDS ORDERED: DIGOXIN INJ 0.5 MG/2 ML AMPUL IV ONE (09:00)
--- NOTE | 2016-12-28 09:10 | NUR ---
ICU NOTES SHANNA SAHNI FURNACE HAND, MADE ROUNDS, SPOKE TO FAMILY AT BEDSIDE, ANSWERED ALL QUESTIONS, NO NEW ORDERS AT THIS TIME
[2016-12-28] MEDS: AMIODARONE 900 MG in IV D5W 482 ML IV SCH (09:33)
[2016-12-28 13:45] LABS: ABG PCO2 57.9 mmHg (35.0-45.0); ABG PO2 65.9 mmHg (75.0-100.0); AaDO2 516.5 mmHg; COHb 2.3 % (0.5-1.5); MetHb 0.5 % (0.0-1.5); O2Hb 86.5 % (94.0-97.0); SITE, ABG Right Radial
--- NOTE | 2016-12-28 19:00 | NUR ---
RN INITIAL NOTES RECEIVED THE PATIENT OBTUNDED ON BED, OPENS EYES ONLY. ON VENT, MAURYLEY 8XLT, APRV, PEAK HIGH 45, 100% FIO2, HIGH TIME 4SEC, LOW TIME 0.7SEC, SATURATING > 95%, NO S/S OF RESP DISTRESS. CURRENTLY UNCONTROLLED AFIB ON THE MONITOR, HR 100-130'S, ON CONTINUOUS AMIO DRIP @ 0.5MG/MIN. PARRA CATH IS INTACT. ON GTUBE FEEDING OF NOVASOURCE @ 35MLS/HR, NO RESIDUALS, WILL MONITOR. RIGHT FEMORAL HD CATH WITH PIGTAIL NOTED. RIGHT UPPER ARM PICC FLUSHED AND PATENT, NO S/S OF INFILTRATION/INFECTION, DRESSING CDI. CURRENTLY ON DIALYSIS. BED LOW AND LOCKED, SIDERAILS UP. WILL MONITOR
--- NOTE | 2016-12-28 19:20 | NUR ---
RN NOTES TALKED TO PHARMACIST KERON ON THE PHONE TO NOTIFY HIM THAT PATIENT IS ON HD RIGHT NOW BUT PRE-HD VANCO RANDOM LEVEL WASN'T DRAWN. PER PHARMACIST, HE WILL ORDER RANDOM VANCO LEVEL TO BE DRAWN POST HD AND FOR VANCO IV TO BE GIVEN TOMORROW INSTEAD.
--- NOTE | 2016-12-28 19:56 | NUR ---
RT PATIENT REC'D ON [facility] VENT WITH SETTINGS SET PER MD JENNIFER SCHILLING. VENT ALARMS CHECKED + AUDIBLE. CUFF PRESSURE CHECKED SIGNAL HELPER. VENT PLUGGED INTO RED OUTLET. B/S DIM COARSE. SX'D WITH SM/MD ALAMO SECRETIONS. NO DISTRESS AT THIS TIME. AMBU BAG AT [facility]. CONT CURRENT PLAN OF RESP CARE. Addendum: 12/28/16 at 1957 by CYNTHIA JIMÉNEZ RT Amended: Links added.
--- NOTE | 2016-12-28 20:13 | NUR ---
RN NOTES RECEIVED CALL FROM PHARMACIST KERON TO ORDER RANDOM VANCO DRAW POST HD AND TO GIVE VANCO IV IF RANDOM VANCO LEVEL IS < 20.
[2016-12-29] VITALS (47 sets, daily range): BP systolic 40–163; BP diastolic 25–78
[2016-12-29] MEDS: IV NS 0.9% 250 ML IV PRN (04:27)
[2016-12-29 05:07] LABS: EOSINOPHILS # (AUTO) 0.2 /CMM (0.0-0.7); EOSINOPHILS % (AUTO) 1.3 % (0.0-6.0); HEMATOCRIT 26 % (39-51); HEMOGLOBIN 8.2 g/dL (13.5-17.5); LYMPHOCYTES # (AUTO) 1.5 /CMM (0.8-4.8); LYMPHOCYTES % (AUTO) 10.4 % (20.0-44.0); MEAN CORPUSCULAR HEMOGLOBIN 28 PG (26.0-33.0); MEAN CORPUSCULAR HGB CONC 32 g/dl (31.0-36.0); MEAN CORPUSCULAR VOLUME 88 fL (80-96); MONOCYTES # (AUTO) 0.7 /CMM (0.1-1.30); NEUTROPHILS # (AUTO) 12.4 /CMM (1.8-8.9); NEUTROPHILS % (AUTO) 83.3 % (43.0-81.0); PLATELET COUNT (AUTO) 75 /CMM (150-450); RED BLOOD CELL COUNT(AUTO) 2.95 MIL/uL (4.5-6.0); WHITE BLOOD COUNT (AUTO) 14.8 K/uL (4.3-11.0)
[2016-12-29 05:08] LABS: DIGOXIN 1.05 ng/mL (0.90-2.00)
[2016-12-29 05:11] LABS: CALCIUM, SERUM 7.8 mg/dL (8.5-10.1); CREATININE 3.4 mg/dL (0.6-1.3); MAGNESIUM 2.1 mg/dL (1.8-2.4); PHOSPHORUS 4.4 mg/dL (2.5-4.9)
[2016-12-29 05:53] LABS: BAND % (MANUAL) 23 % (0.0-5.0); EOSINOPHILS % (MANUAL) 1 % (0-4); LYMPHOCYTES % (MANUAL) 4 % (16-48); MONOCYTES % (MANUAL) 3 % (0-11.0); MYELOCYTES % 5 % (0-0); NEUTROPHILS % (MANUAL) 63 (42-76); PROMYELOCYTES % 1 % (0-0)
--- NOTE | 2016-12-29 07:00 | NUR ---
RN CLOSING NOTES PT REMAINS STABLE OF THE MOMENT. ALL DUE MEDS GIVEN, AM CARE PROVIDED. WILL ENDORSE CONTINUITY OF CARE TO AM RN
--- NOTE | 2016-12-29 07:41 | NUR ---
INITIAL INTERLOCKING TOWER OPERATOR NOTE RCVD PT WITH EYES OPEN, NON -VERBAL, NO BLINKING EYES WHEN THREAT PRESENT. PT SHOWS NO S/O DISTRESS OR PAIN AT THIS TIME. TOLERATING ORDERED VENT SETTINGS. UNCONTROLLED AFIB ON TELE. PT ON AMIODARONE gtt. PEG PLACEMENT VERIFIED BY AUSCULTATION/ASPIRATION. NO RESIDUAL OBSERVED. PARRA IN PLACE DRAINING CONCENTRATED URINE. MARIANNE PICC C/D/I/PATENT. NO S/O INFILTRATION/PHLEBITIS OBSERVED IVF INFUSING. WILL CONTINUE TO MONITOR PT FOR SAFETY AND COMFORT. CALL LIGHT WITHIN REACH, BED IN LOW AND LOCKED POSITION.
--- NOTE | 2016-12-29 08:07 | NUR ---
WOUND CARE CONSULT: PT SEEN FOR PROFOUND GENERALIZED EDEMA INCLUDING PENIS NOTED WITH DISCOLORATION AND OPEN AREAS. PATIENT NOTED WITH EDEMATOUS SCROTUM NOTED TO BE WEEPING. DEFER TO MD FOR PENIS OPEN AREAS WITH EDEMA, RECOMMEND SURGICAL CONSULT. PT ON FIRST STEP MATTRESS. ALL SKIN PROTECTION MEASURES IN PLACE. DISCUSSED WITH NURSING STAFF. MD IN AGREEMENT WITH PLAN OF CARE.
--- NOTE | 2016-12-29 08:14 | NUR ---
RESTAURANT ASSISTANT MANAGER NOTE PT EVALUATED BY SOIL TECHNOLOGIST FOR PENIS WOUND, RECOMMENDED SURGICAL CONSULT. DOMINGUEZ OTERO AT BEDSIDE ASSESSED WOUND AND WAS INFORMED OF RECOMMENDATION WILL CALL DR. GRIMES TO EVAL PT.
[2016-12-29] MEDS: SEVELAMER CARBONATE 0.8 GM POWD.PACK GT SCH ×3 (08:28→17:17)
[2016-12-29] MEDS: PROSOURCE / PROSTAT (PYXIS) 30 ML UDC GT SCH (08:28)
[2016-12-29] MEDS: LACTOBACILLUS RHAMNOSUS GG 1 EACH CAP.SPRINK GT SCH ×2 (08:28→17:17)
[2016-12-29] MEDS: PANTOPRAZOLE 40 MG VIAL IV SCH ×2 (08:29→17:17)
[2016-12-29] MEDS: MEROPENEM 500 MG in IV NS 0.9% 50 ML IV SCH (08:29)
[2016-12-29] MEDS: DOCUSATE SODIUM LIQ 100 MG/10 ML UDC PO SCH (08:29)
[2016-12-29] MEDS: BACITRACIN ZINC OINT (15 GM) 15 GM TUBE TP SCH (08:30)
[2016-12-29] MEDS: HYDROGEN PEROXIDE 480 ML BOTTLE TP SCH (08:30)
[2016-12-29 08:59] LABS: ABG OXYGEN SATURATION 96.1 % (92.0-98.5); ABG PCO2 76.9 mmHg (35.0-45.0); ABG PH 7.153 (7.350-7.450); ABG PO2 108.7 mmHg (75.0-100.0); AaDO2 454.2 mmHg; COHb 2.8 % (0.5-1.5); MetHb 0.6 % (0.0-1.5); O2Hb 92.8 % (94.0-97.0); SITE, ABG Right Radial; VENT MODE, BG APRV 50 TH5.0 TL .7
[2016-12-29] MEDS: AMIODARONE 900 MG in IV D5W 482 ML IV SCH (09:51)
[2016-12-29] MEDS ORDERED: AMIODARONE 900 MG in IV D5W 482 ML IV PRN (12:30)
[2016-12-29 15:32] LABS: ABG OXYGEN SATURATION 95.5 % (92.0-98.5); ABG PCO2 64.6 mmHg (35.0-45.0); ABG PH 7.179 (7.350-7.450); ABG PO2 90.6 mmHg (75.0-100.0); AaDO2 484.9 mmHg; COHb 3.1 % (0.5-1.5); O2Hb 91.6 % (94.0-97.0); SITE, ABG Right Radial; VENT MODE, BG aprv 45 th5.0 tl 1.0
--- NOTE | 2016-12-29 16:30 | NUR ---
FUR FARMER NOTE PT DESATURATING TO 78% ON 90% FIO2. PT SUCTIONED, REPOSITIONED, O2 PROVE CHANGED. RT CALLED TO BEDSIDE TO ASSESS PT. WILL CONTINUE TO MONITOR.
[2016-12-29] MEDS: RENAL NOVASOURCE 1,000 ML BOTTLE GT PRN (17:17)
--- NOTE | 2016-12-29 18:12 | NUR ---
SOLUTION ENGINEER NOTE PT MAXED OUT ON 100 % FIO2 IMPROVING SLOWLY TO 83%. RT AT BEDSIDE. NBA, PHARMACY ANCILLARY AWARE. WILL CONTINUE TO MONITOR.
--- NOTE | 2016-12-29 18:16 | NUR ---
increased fio2 from 90% to 100% due to low saturation. Addendum: 12/29/16 at 1817 by RICCI MATHEW RT Amended: Links added.
[2016-12-29] MEDS ORDERED: MICAFUNGIN SODIUM 100 MG in IV NS 0.9% 100 ML IV SCH (18:30)
[2016-12-29] MEDS ORDERED: SECONDARY IV SET 1 EA INFUS.SET MC ONE (18:32)
--- NOTE | 2016-12-29 18:50 | NUR ---
ENDING PLSQL DEVELOPER NOTE PT'S SATURATION IMPROVED TO 90s%, IV SITE REMAINS C/D/I/PATENT. PARRA DRAINING TEA COLORED URINE. PT'S CARE WILL BE ENDORSED TO DRUM SANDER RN FOR CONTINUITY OF CARE. BED IN LOW AND LOCKED POSITION.
[2016-12-29] MEDS ORDERED: IV SET PRIMARY PUMP SET 1 EA INFUS.SET MC ONE (19:05)
--- NOTE | 2016-12-29 19:15 | NUR ---
RAPID DETERIORATION WITH LOSS OF RENO-SPARKS RHYTHM AND 100% PACED RHYTHM WITH SBP IN THE 50'S. SPO2 DROPPED TO 58% AND RESPIRATIONS DOWN TO 6 BPM ON BILEVEL MODE (NO BACK UP RATE IN THIS MODALITY) AND AGONAL. BILATERAL UPPER CHEST EQUAL BREATH SOUNDS. . R.T. AND DR MATHIS CALLED STAT. PT BAGGED ON 100% WITH AMBU. VENT CHANGED TO PRESSURE CONTROL RATE 20 AND LEVOPHED STARTED AND RAPIDLY TITRATED UP TO 40 MCG/KG/MIN. FAMILY CALLED AND ASKED TO ATTEND PT MORIBUND. DNR STATUS
[2016-12-29] MEDS: NOREPINEPHRINE 16 MG in IV D5W 500 ML IV PRN (19:23)
--- NOTE | 2016-12-29 19:50 | NUR ---
WOOL AND PELT GRADER. INITIAL ASSESSMENT. RECEIVED THE PT REST ON THE BED. PT WAS AGONAL BREATHING. BLOOD PRESSURE 66/40. HEART RATE 66. NBA CALLED STAGE SETTINGS PAINTER VENT SETTINGS CHANGED, LEVOPHED STARTED, GT FEEDING STOPPED. CALLED PT SON. PT IS VERT CRITICAL. WILL CONTINUE TO MONITOR
--- NOTE | 2016-12-29 19:56 | NUR ---
PT FAMILY AT BED SIDE.
--- NOTE | 2016-12-29 19:56 | NUR ---
PHYSICIAN INDUSTRIAL. PT IS VERY UNSTABLE.TRACH TO VENT CONNECTED. [id number], AC 20,PRESSURE CONTROL 50,FIO2 100%, PEEP 10. SAT 60%. CASINO SLOT SUPERVISOR SHOWING NSR. IV RT UPPER ARM PICC LINE. IV AMIODARONE 0.5MG,LEVOPHED 30MCG/MIN. GT INTACT. FC PATENT. HOB ELEVATED. WILL CONTINUE TO MONITOR VITALS.
--- NOTE | 2016-12-29 20:08 | NUR ---
DUE to patients change of status vents settings were changed by DR Sy, PATIENT REC'D ON [facility] VENT WITH SETTINGS SET PER MD . VENT ALARMS CHECKED + AUDIBLE. CUFF PRESSURE CHECKED SMART GRID ENGINEER. VENT PLUGGED INTO RED OUTLET. B/S DIM COARSE. SX'D WITH SM/ AMT SECRETIONS. AMBU BAG AT [facility]. CONT CURRENT PLAN OF RESP CARE. Addendum: 12/29/16 at 2009 by CYNTHIA JIMÉNEZ RT Amended: Links added.
[2016-12-29] MEDS: MORPHINE SULFATE INJ 2 MG/ML DISP.SYRIN IV PRN ×3 (20:25→22:46)
--- NOTE | 2016-12-29 21:08 | NUR ---
NETWORK CONTROLLER. HD NURSE AT BED SIDE.
--- NOTE | 2016-12-29 21:09 | NUR ---
IT RISK AND ASSURANCE SENIOR MANAGER. FAMILY AT BED SIDE. SON RITCHIE DECIDED TO COMFORT MEASURE.PAGED WASTE WATER TREATMENT PLANT OPERATOR MD.WAITING FOR CALL BACK
--- NOTE | 2016-12-29 21:27 | NUR ---
IMMIGRATION CASE MANAGER. FAMILY WISH COMFORT MEASURE. IONA AWARE. NEW ORDER RECEIVED. HEMO DIALYSIS STOPPED. 641 ML FLUIDS REMOVED.ORDER TERMINAL EXTUBATION. 30MIN BEFORE EXTUBATION 2MG MORPHINE IVP. THEN PER PROTOCOL. KEEP RESPIRATORY RATE <20
[2016-12-29] MEDS ORDERED: MORPHINE SULFATE INJ 2 MG/ML DISP.SYRIN IV PRN (22:00)
[2016-12-29] MEDS ORDERED: MORPHINE SULFATE INJ 2 MG/ML DISP.SYRIN ONE (22:38)
--- NOTE | 2016-12-29 22:43 | NUR ---
PT VENT D/C AT 2342. OXYGEN 4L CONNECTED TO TRACH.
--- NOTE | 2016-12-29 22:47 | NUR ---
DC'D VENT PER MD ORDER. PLACED ON 4L VIA TRACH
--- NOTE | 2016-12-29 22:55 | NUR ---
CALLED IN TO CHECK ON PATIENT.DNR STATUS.UNRESPONSIVE TO NOXIOUS STIMULI.NO SIGNS OF LIFE.STOPPED BREATHING.NO PALPABLE PULSE OR HEART BEAT AUSCULTATED.ASYSTOLE IN ALL LEADS PER ENVELOPE MACHINE ADJUSTER.PUPILS FIXED AND DILATED.PRONOUNCED .
--- NOTE | 2016-12-29 23:52 | NUR ---
HOSPITALITY HOUSEKEEPER. UROLOGIST PHYSICIAN SHOWING FLAT LINE. NO BLOOD PRESSURE, NO RESPIRATORY RATE. MAIN ARTERY NO PULSE, PUPILS FIXED NO REACTING. CHARGE NURSE RN MERITES DECLARED. PAGED DR MONSON. IONA CALLED BACK . FAMILY AT BED SIDE. NOTIFIED [facility] CASE NO#[id number], SPOKE PERSON ROLAN. CALLED CORNER NO CORNER CASE. BODY RELEASED.
--- NOTE | 2016-12-30 01:15 | NUR ---
PLANT EQUIPMENT ENGINEER. BODY SEND TO [facility] ON 12/30/16 [id number]
== END 2016-12-29 23:00 | disposition expired | DRG 5 ==
LOC: ER 11:10 → ICU 12:58
PROVIDERS: ADMIT Internal Medicine; ATTEND Internal Medicine
PROC: 5A1955Z Respiratory Ventilation, Greater than 96 Consecutive Hours (ICD-10-PCS; principal; 2016-11-24)
PROC: 0BH17EZ Insertion of Endotracheal Airway into Trachea, Via Natural or Artificial Opening (ICD-10-PCS; principal; 2016-11-24)
PROC: 05H533Z Insertion of Infusion Device into Right Subclavian Vein, Percutaneous Approach (ICD-10-PCS; 2016-11-25)
PROC: 009U3ZX Drainage of Spinal Canal, Percutaneous Approach, Diagnostic (ICD-10-PCS; 2016-11-27)
PROC: 30233N1 Transfusion of Nonautologous Red Blood Cells into Peripheral Vein, Percutaneous Approach (ICD-10-PCS; 2016-11-27)
PROC: 0JH606Z Insertion of Pacemaker, Dual Chamber into Chest Subcutaneous Tissue and Fascia, Open Approach (ICD-10-PCS; 2016-11-27)
PROC: 02HK3JZ Insertion of Pacemaker Lead into Right Ventricle, Percutaneous Approach (ICD-10-PCS; 2016-11-27)
PROC: 02H63JZ Insertion of Pacemaker Lead into Right Atrium, Percutaneous Approach (ICD-10-PCS; 2016-11-27)
PROC: 05H633Z Insertion of Infusion Device into Left Subclavian Vein, Percutaneous Approach (ICD-10-PCS; 2016-12-02)
PROC: 0B110F4 Bypass Trachea to Cutaneous with Tracheostomy Device, Open Approach (ICD-10-PCS; 2016-12-07)
PROC: 0DH63UZ Insertion of Feeding Device into Stomach, Percutaneous Approach (ICD-10-PCS; 2016-12-08)
PROC: 02HV33Z Insertion of Infusion Device into Superior Vena Cava, Percutaneous Approach (ICD-10-PCS; 2016-12-09)
PROC: B548ZZA Ultrasonography of Superior Vena Cava, Guidance (ICD-10-PCS; 2016-12-09)
PROC: 0B21XFZ Change Tracheostomy Device in Trachea, External Approach (ICD-10-PCS; 2016-12-12)
PROC: 06HM33Z Insertion of Infusion Device into Right Femoral Vein, Percutaneous Approach (ICD-10-PCS; 2016-12-15)
PROC: 5A1D60Z (ICD-10-PCS; 2016-12-15)
DX: A41.9 Sepsis, unspecified organism (principal); I21.4 Non-ST elevation (NSTEMI) myocardial infarction; N17.0 Acute kidney failure with tubular necrosis; I63.9 Cerebral infarction, unspecified; R65.21 Severe sepsis with septic shock; J96.21 Acute and chronic respiratory failure with hypoxia; G92 Toxic encephalopathy; J69.0 Pneumonitis due to inhalation of food and vomit; D68.59 Other primary thrombophilia; E87.2 Acidosis; Z51.5 Encounter for palliative care; I48.0 Paroxysmal atrial fibrillation; E86.0 Dehydration; E87.1 Hypo-osmolality and hyponatremia; D62 Acute posthemorrhagic anemia; E83.39 Other disorders of phosphorus metabolism; D69.6 Thrombocytopenia, unspecified; E87.5 Hyperkalemia; I25.2 Old myocardial infarction; I48.92 Unspecified atrial flutter; I49.5 Sick sinus syndrome; M62.82 Rhabdomyolysis; N18.9 Chronic kidney disease, unspecified; I13.0 Hypertensive heart and chronic kidney disease with heart failure and stage 1 through stage 4 chronic kidney disease, or unspecified chronic kidney disease; I50.9 Heart failure, unspecified; Z85.038 Personal history of other malignant neoplasm of large intestine; Z86.73 Personal history of transient ischemic attack (TIA), and cerebral infarction without residual deficits; Z88.2 Allergy status to sulfonamides; N40.0 Benign prostatic hyperplasia without lower urinary tract symptoms; T42.4X1A Poisoning by benzodiazepines, accidental (unintentional), initial encounter; Y92.009 Unspecified place in unspecified non-institutional (private) residence as the place of occurrence of the external cause; R55 Syncope and collapse; I25.10 Atherosclerotic heart disease of native coronary artery without angina pectoris; P91.60 Hypoxic ischemic encephalopathy [HIE], unspecified; L98.8 Other specified disorders of the skin and subcutaneous tissue; L89.890 Pressure ulcer of other site, unstageable; N50.89 Other specified disorders of the male genital organs; S41.101A Unspecified open wound of right upper arm, initial encounter; X58.XXXA Exposure to other specified factors, initial encounter; Y93.9 Activity, unspecified; R56.9 Unspecified convulsions; R93.5 Abnormal findings on diagnostic imaging of other abdominal regions, including retroperitoneum; R19.5 Other fecal abnormalities; D72.810 Lymphocytopenia
CPT/HCPCS: 31720; 36415; 36569; 36600; 70450-TC; 70551-TC; 71010-TC; 74000-TC; 80048-TC; 80053-TC; 80061-TC; 80076-TC; 80162-TC; 80202-TC; 80305; 81000-TC; 81240; 82140-TC; 82272-TC; 82330; 82550-TC; 82553-TC; 82570-TC; 82803-TC; 82945-TC; 82962-TC; 83090; 83605-TC; 83735-TC; 83880; 84100-TC; 84155-TC; 84295-TC; 84300-TC; 84443-TC; 84484-TC; 85025-TC; 85240; 85300; 85301; 85303; 85385-TC; 85610-TC; 85613; 85652-TC; 85670; 85705; 85730-TC; 85732; 86140-TC; 86147; 86592; 86635; 86694; 86788; 86789; 86850-TC; 86921-TC; 87040-TC; 87070-TC; 87081-TC; 87086-TC; 87340; 87802; 87899; 89051-TC; 90935-TC; 93307-TC; 93880-TC; 93971-TC; 94002-TC; 94003-TC; 94640-TC; 94664-TC; 94762-TC; 95819-TC; 97003-TC; 99082-TC; A4216; A4606; A6402; A6403; C1750; C1751; C1769; C9113; J0282; J0360; J0696; J0885; J1160; J1644; J1940; J2020; J2060; J2185; J2248; J2270; J2310; J2543; J2704; J2765; J3010; J3370; J3480; J3490; J7030; J7040; J7050; J7060; J7070; P9016-BL; P9047; Q9966; Z7610